=== PATIENT | male | born 1940 | race Hispanic/Latino ===

== ENCOUNTER 2018-08-17 07:13 | Emergency (ER) | payer MEDICARE, OTHER ==
[~2018-08-17 07:13] MED LIST: AMLO10TA7 PO; ASPI-1197 PO; HYDR25TA PO; LEVO50TA11 PO; LISI40TA4 PO; METF-444 PO; METO-391 PO; SIMV40TA59 PO; VALS160T29 PO
[2018-08-17] MEDS ORDERED: MECLIZINE HCL 25 MG TABLET ONE (07:28)
[2018-08-17] MEDS ORDERED: ONDANSETRON HCL 4 MG/2 ML VIAL ONE (07:29)
[2018-08-17 07:42] LABS: BASOPHILS % (AUTO) 0.8 % (0.0-5.0); EOSINOPHILS % (AUTO) 1.5 % (0.0-8.0); HEMATOCRIT 40.6 % (42-54); LYMPHOCYTES % (AUTO) 20.1 % (21.0-51.0); MEAN CORPUSCULAR HEMOGLOBIN 31.1 pg (27.0-33.0); MEAN CORPUSCULAR HGB CONC 33.6 g/dL (32.0-36.0); MEAN CORPUSCULAR VOLUME 92.5 fL (79-99); MONOCYTES % (AUTO) 4.8 % (3.0-13.0); NEUTROPHILS % (AUTO) 72.8 % (40.0-77.0); NUCLEATED RED BLOOD CELLS 0.1 % (0.0-0.19); PLATELET COUNT (AUTO) 211 K/uL (130-400); RED BLOOD CELL COUNT(AUTO) 4.39 MIL/uL (4.50-6.20); RED CELL DISTRIBUTION WIDTH 14.1 % (11.0-15.5); WHITE BLOOD COUNT (AUTO) 11.7 K/uL (4.8-10.8)
[2018-08-17 07:52] LABS: CREATININE 1.2 mg/dL (0.5-1.5); POTASSIUM 4.3 mmol/L (3.5-5.1)
[2018-08-17 07:54] LABS: INR 0.95 (0.85-1.15); PARTIAL THROMBOPLASTIN TIME 25.8 SEC (26.3-35.5)
[2018-08-17 08:07] LABS: ALBUMIN 3.5 g/dL (3.5-5.0); BILIRUBIN,TOTAL 0.4 mg/dL (0.2-1.0)
[2018-08-17] MEDS ORDERED: SODIUM CHLORIDE 0.9% 1000ML 1,000 ML IV ONE (08:30)
[2018-08-17 08:57] LABS: APPEARANCE,URINE Clear (CLEAR); BILIRUBIN,URINE Negative (NEGATIVE); COLOR,URINE Yellow (YELLOW); GLUCOSE, URINE (UA) Negative (NEGATIVE); KETONES,URINE Negative (NEGATIVE); LEUKOCYTE ESTERASE ,URINE Negative (NEGATIVE); NITRATE,URINE Negative (NEGATIVE); OCCULT BLOOD,URINE Trace (NEGATIVE); PH,URINE 6.5 (5.0-8.0); PROTEIN,URINE 300 mg/dL (NEGATIVE); UROBILINOGEN,URINE 0.2 mg/dL (0.2-1.0)
[2018-08-17 09:05] LABS: BACTERIA,URINE Rare /HPF (None Seen); RBC,URINE 0-1 /HPF (0-1); SQUAMOUS EPITHELIAL CELL,UR Rare /HPF (0-2); WBC,URINE 0-1 /HPF (0-1)
== END 2018-08-17 09:55 | disposition home or self-care (01) ==
LOC: EDH 07:13
DX: H81.399 Other peripheral vertigo, unspecified ear (principal); E11.9 Type 2 diabetes mellitus without complications; I10 Essential (primary) hypertension; R11.2 Nausea with vomiting, unspecified; Z95.1 Presence of aortocoronary bypass graft
CPT/HCPCS: 36415; 70450; 80053; 81001; 82150; 82550; 83690; 84484; 85025; 85610; 85730; 93005; 96361; 96374; 99285; J2405; J7030

== ENCOUNTER 2021-10-12 14:46 | Inpatient (IN) | payer OTHER ==
[~2021-10-12] VITALS: Ht 165.1 cm; Wt 75.9 kg
[~2021-10-12 14:46] MED LIST changes: +AMLO-258 PO; -AMLO10TA7 PO; -LISI40TA4 PO; +LISI40TA9 PO
[2021-10-12 15:22] LABS: APPEARANCE,URINE CLEAR (CLEAR); BILIRUBIN,URINE NEGATIVE (NEGATIVE); COLOR,URINE YELLOW (YELLOW); GLUCOSE, URINE (UA) NEGATIVE (NEGATIVE); KETONES,URINE NEGATIVE (NEGATIVE); LEUKOCYTE ESTERASE ,URINE NEGATIVE (NEGATIVE); NITRATE,URINE NEGATIVE (NEGATIVE); OCCULT BLOOD,URINE NEGATIVE (NEGATIVE); PROTEIN,URINE 100 mg/dL (NEGATIVE); UROBILINOGEN,URINE 0.2 mg/dL (0.2-1.0)
[2021-10-12 15:29] LABS: BACTERIA,URINE Few /HPF (None Seen); MUCUS,URINE Moderate LPF (None Seen); SQUAMOUS EPITHELIAL CELL,UR Few /HPF (0-2); WBC,URINE 0-1 /HPF (0-1)
[2021-10-12 15:51] LABS: BASOPHILS % (AUTO) 0.6 % (0.0-5.0); EOSINOPHILS % (AUTO) 1.8 % (0.0-8.0); HEMATOCRIT 32.7 % (42-54); LYMPHOCYTES % (AUTO) 16.5 % (21.0-51.0); MEAN CORPUSCULAR HEMOGLOBIN 30.9 pg (27.0-33.0); MEAN CORPUSCULAR HGB CONC 33.3 g/dL (32.0-36.0); MEAN CORPUSCULAR VOLUME 92.6 fL (79-99); MONOCYTES % (AUTO) 4.7 % (3.0-13.0); NEUTROPHILS % (AUTO) 76.1 % (40.0-77.0); PLATELET COUNT (AUTO) 170 K/uL (130-400); RED BLOOD CELL COUNT(AUTO) 3.53 MIL/uL (4.50-6.20); RED CELL DISTRIBUTION WIDTH 14.2 % (11.0-15.5); WHITE BLOOD COUNT (AUTO) 9.5 K/uL (4.8-10.8)
[2021-10-12 16:01] LABS: CREATININE 1.7 mg/dL (0.5-1.5); POTASSIUM 4.4 mmol/L (3.5-5.1)
[2021-10-12 16:10] LABS: ALBUMIN 3.2 g/dL (3.5-5.0)
[2021-10-12] MEDS ORDERED: ATOR40TA69 PO (21:37)
[2021-10-12] MEDS ORDERED: ISOS60TA77 PO (21:37)
[2021-10-12] MEDS ORDERED: OMEP40CA21 PO (21:37)
[2021-10-12] MEDS ORDERED: LEVO25CA4 PO (21:37)
[2021-10-12] MEDS ORDERED: METO-408 PO (21:37)
[2021-10-13 04:10] VITALS: BP 148/72
[2021-10-13 05:24] LABS: HEMATOCRIT 33.4 % (42-54); MEAN CORPUSCULAR HEMOGLOBIN 30.8 pg (27.0-33.0); MEAN CORPUSCULAR HGB CONC 33.5 g/dL (32.0-36.0); MEAN CORPUSCULAR VOLUME 91.8 fL (79-99); RED BLOOD CELL COUNT(AUTO) 3.64 MIL/uL (4.50-6.20); RED CELL DISTRIBUTION WIDTH 14.2 % (11.0-15.5); WHITE BLOOD COUNT (AUTO) 11.3 K/uL (4.8-10.8)
[2021-10-13 05:40] LABS: CREATININE 1.5 mg/dL (0.5-1.5); MAGNESIUM 1.4 mg/dL (1.80-2.40)
[2021-10-13] MEDS: LEVOTHYROXINE 25 MCG TABLET PO SCH (07:11)
[2021-10-13 08:51] VITALS: BP 155/71
[2021-10-13] MEDS: ISOSORBIDE MONO 60MG SR TAB PO SCH ×2 (10:00→21:18)
[2021-10-13] MEDS: AMLODIPINE 5 MG TAB PO SCH (10:01)
[2021-10-13] MEDS: METOPROLOL SUCCINATE 25 MG TAB.SR.24H PO SCH (10:01)
[2021-10-13] MEDS: PANTOPRAZOLE 40 MG TAB DR PO SCH (10:01)
[2021-10-13] MEDS: LISINOPRIL 40 MG TABLET PO SCH ×2 (10:01→21:18)
[2021-10-13] MEDS: ATORVASTATIN 40 MG TABLET PO SCH (10:01)
[2021-10-13] MEDS: ASPIRIN 81MG CHEW TAB PO SCH (10:02)
[2021-10-13 12:20] VITALS: BP 152/75
[2021-10-13 16:55] VITALS: BP 137/75
[2021-10-13 20:00] VITALS: BP 146/65
[2021-10-14] VITALS: BP 155/57
[2021-10-14 04:00] VITALS: BP 158/70
[2021-10-14] MEDS: LEVOTHYROXINE 25 MCG TABLET PO SCH (06:18)
[2021-10-14 08:00] VITALS: BP 160/81
[2021-10-14] MEDS ORDERED: MAGNESIUM 4GM PREMIX 100ML 100 ML IV PRN (08:00)
[2021-10-14] MEDS: ASPIRIN 81MG CHEW TAB PO SCH (08:15)
[2021-10-14] MEDS: AMLODIPINE 5 MG TAB PO SCH (08:16)
[2021-10-14] MEDS: METOPROLOL SUCCINATE 25 MG TAB.SR.24H PO SCH (08:16)
[2021-10-14] MEDS: ISOSORBIDE MONO 60MG SR TAB PO SCH (08:16)
[2021-10-14] MEDS: LISINOPRIL 40 MG TABLET PO SCH (08:16)
[2021-10-14] MEDS: PANTOPRAZOLE 40 MG TAB DR PO SCH (08:16)
[2021-10-14] MEDS: ATORVASTATIN 40 MG TABLET PO SCH (08:21)
[2021-10-14] MEDS ORDERED: MAGNESIUM 2GM PREMIX 50ML 100 ML IV ONE (09:52)
[2021-10-14 12:00] VITALS: BP 145/68
== END 2021-10-14 12:20 | disposition home or self-care (01) | DRG 149 ==
LOC: EDH 14:46 → EDHIP 18:10 → 3AH 10-13 01:50
PROVIDERS: ADMIT Family Medicine; ATTEND Family Medicine
DX: H81.399 Other peripheral vertigo, unspecified ear (principal); N17.9 Acute kidney failure, unspecified; E78.00 Pure hypercholesterolemia, unspecified; I12.9 Hypertensive chronic kidney disease with stage 1 through stage 4 chronic kidney disease, or unspecified chronic kidney disease; N18.9 Chronic kidney disease, unspecified; Z95.2 Presence of prosthetic heart valve; E87.6 Hypokalemia; E83.42 Hypomagnesemia; E11.22 Type 2 diabetes mellitus with diabetic chronic kidney disease
CPT/HCPCS: 36415; 70450; 70544; 70547; 70551; 80048; 80053; 81001; 83735; 84484; 85025; 85027; 93005; 93880; G0378; J3475

== ENCOUNTER → 2023-03-18 | Outpatient (CLI) | payer OTHER ==
[~2023-03-18] MED LIST changes: +ATOR40TA69 PO; +ISOS60TA77 PO; +LEVO25CA4 PO; +METO-408 PO; +OMEP40CA21 PO
[2023-03-18 13:05] LABS: EOSINOPHILS # (AUTO) 0.25 K/uL (0.00-0.70); EOSINOPHILS % (AUTO) 2.5 % (0.0-8.0); IMMATURE GRANULOCYTE ABSOLUTE 0.03 K/uL (0-1); LYMPHOCYTES # (AUTO) 2.3 K/uL (1.0-4.8); LYMPHOCYTES % (AUTO) 22.6 % (21.0-51.0); MEAN CORPUSCULAR HEMOGLOBIN 31.2 pg (27.0-33.0); MEAN CORPUSCULAR HGB CONC 32.8 g/dL (32.0-36.0); MEAN CORPUSCULAR VOLUME 95.1 fL (79-99); MONOCYTES # (AUTO) 0.5 K/uL (0.1-1.0); NEUTROPHILS # (AUTO) 6.9 K/uL (1.8-7.7); NEUTROPHILS % (AUTO) 68.6 % (40.0-77.0); PLATELET COUNT (AUTO) 221 K/uL (130-400); WHITE BLOOD COUNT (AUTO) 10.1 K/uL (4.8-10.8)
[2023-03-18 13:07] LABS: APPEARANCE,URINE CLEAR (CLEAR); BILIRUBIN,URINE NEGATIVE (NEGATIVE); COLOR,URINE LIGHT-YELLOW (YELLOW); GLUCOSE, URINE (UA) 30 mg/dL (NEGATIVE); KETONES,URINE NEGATIVE (NEGATIVE); LEUKOCYTE ESTERASE ,URINE NEGATIVE Leu/uL (NEGATIVE); NITRATE,URINE NEGATIVE (NEGATIVE); OCCULT BLOOD,URINE SMALL (NEGATIVE); PROTEIN,URINE 300 mg/dL (NEGATIVE); UROBILINOGEN,URINE 0.2 mg/dL (0.2-1.0)
[2023-03-18 13:08] LABS: ADD UA MICROSCOPIC YES
[2023-03-18 13:18] LABS: MUCUS,URINE RARE LPF (None Seen); RBC,URINE 0-1 /HPF (0-1); SQUAMOUS EPITHELIAL CELL,UR RARE /HPF (0-2); WBC,URINE 0-1 /HPF (0-1)
[2023-03-18 13:39] LABS: ALBUMIN 3.6 g/dL (3.5-5.0); BILIRUBIN,TOTAL 0.5 mg/dL (0.2-1.0); CREATININE 1.7 mg/dL (0.5-1.5); PHOSPHORUS 3.5 mg/dL (2.5-4.9); POTASSIUM 4.6 mmol/L (3.5-5.1); TOTAL PROTEIN, SERUM 8.2 g/dL (6.0-8.3)
[2023-03-19 01:16] LABS: HEPATITIS B SURFACE ANTIGEN Non-Reactive (Nonreactive)
[2023-03-23 16:10] LABS: ALBUMIN (IFE & ELECTROPHOR) 3.5 g/dL (2.9-4.4); ALBUMIN/GLOBULIN RATIO (IFE) 0.9 (0.7-1.7); ALPHA-1 (IFE & PEP) 0.3 g/dL (0.0-0.4); ALPHA-2 (IFE & PEP) 0.9 g/dL (0.4-1.0); BETA (IFE & ELP) 1.3 g/dL (0.7-1.3); GAMMA GLOBULINS (IFE & ELP) 1.4 g/dL (0.4-1.8); IGA (IFE) 425 mg/dL (61-437); IGG (IMMUNOFIXATION) 1259 mg/dL (603-1613); IGM (IMMUNOFIXATION) 203 mg/dL (15-143); M-SPIKE (IEP) Not Observed g/dL (Not Observed); TOTAL PROTEIN 7.5 g/dL (6.0-8.5)
[2023-03-24 15:13] LABS: ATYPICAL P-ANCA AB <1:20 titer (Neg:<1:20); CYTOPLASMIC (C-ANCA) AB, IGG <1:20 titer (Neg:<1:20)
== END | disposition home or self-care (01) ==
LOC: LAB 11:53
PROVIDERS: ATTEND Internal Medicine Nephrology
DX: N18.9 Chronic kidney disease, unspecified (principal); D63.1 Anemia in chronic kidney disease
CPT/HCPCS: 36415; 80053; 81001; 82728; 83540; 83550; 83970; 84100; 85025; 86038; 86160; 86215; 86235; 86255; 86334; 87340

== ENCOUNTER → 2023-05-18 | Outpatient (CLI) | payer OTHER | END | disposition home or self-care (01) | LOC: RAH 12:36 | PROVIDERS: ATTEND Internal Medicine | DX: I08.2 Rheumatic disorders of both aortic and tricuspid valves (principal) | CPT/HCPCS: 93306 ==

== ENCOUNTER 2023-06-24 11:06 | Emergency (ER) | payer OTHER ==
[~2023-06-24] VITALS: Ht 162.6 cm; Wt 75.7 kg
[2023-06-24] MEDS: AMLODIPINE 5 MG TAB PO ONE (11:52)
[2023-06-24 11:56] LABS: BASOPHILS # (AUTO) 0.05 K/uL (0.00-0.20); BASOPHILS % (AUTO) 0.4 % (0.0-5.0); EOSINOPHILS # (AUTO) 0.23 K/uL (0.00-0.70); HEMATOCRIT 37.5 % (42-54); IMMATURE GRANULOCYTE ABSOLUTE 0.07 K/uL (0-1); LYMPHOCYTES # (AUTO) 2.4 K/uL (1.0-4.8); LYMPHOCYTES % (AUTO) 20.1 % (21.0-51.0); MEAN CORPUSCULAR HEMOGLOBIN 31.2 pg (27.0-33.0); MEAN CORPUSCULAR HGB CONC 33.1 g/dL (32.0-36.0); MEAN CORPUSCULAR VOLUME 94.2 fL (79-99); MONOCYTES # (AUTO) 0.5 K/uL (0.1-1.0); MONOCYTES % (AUTO) 4.5 % (3.0-13.0); NEUTROPHILS # (AUTO) 8.5 K/uL (1.8-7.7); NEUTROPHILS % (AUTO) 72.4 % (40.0-77.0); PLATELET COUNT (AUTO) 247 K/uL (130-400); RED BLOOD CELL COUNT(AUTO) 3.98 MIL/uL (4.50-6.20); RED CELL DISTRIBUTION WIDTH 13.4 % (11.0-15.5); WHITE BLOOD COUNT (AUTO) 11.8 K/uL (4.8-10.8)
[2023-06-24 12:06] LABS: CREATININE 1.9 mg/dL (0.5-1.3); POTASSIUM 4.6 mmol/L (3.5-5.1)
[2023-06-24 12:10] LABS: ALBUMIN 3.2 g/dL (3.5-5.0); BILIRUBIN,TOTAL 0.3 mg/dL (0.2-1.0); TOTAL PROTEIN, SERUM 7.8 g/dL (6.0-8.3)
[2023-06-24] MEDS: HYDRALAZINE HCL 10 MG TABLET PO SCH (13:42)
[2023-06-24] MEDS: IBUPROFEN 600 MG TABLET PO ONE (14:40)
[2023-06-24 14:41] VITALS: BP 157/64; PULSE 60; RESP 16; O2SAT 99
[2023-06-24] MEDS ORDERED: D-ME118S47 PO (14:51)
[2023-06-24] MEDS ORDERED: AMOX1TAB16 PO (14:51)
[2023-06-24] MEDS ORDERED: PRED20TA3 PO (14:51)
[2023-06-26] MEDS ORDERED: CEFU500T67 PO (07:17)
== END 2023-06-24 14:42 | disposition home or self-care (01) ==
LOC: EDH 11:06
DX: I16.0 Hypertensive urgency (principal); I12.9 Hypertensive chronic kidney disease with stage 1 through stage 4 chronic kidney disease, or unspecified chronic kidney disease; N18.32 Chronic kidney disease, stage 3b; E78.00 Pure hypercholesterolemia, unspecified; Z79.82 Long term (current) use of aspirin; Z79.84 Long term (current) use of oral hypoglycemic drugs; Z79.890 Hormone replacement therapy; Z79.899 Other long term (current) drug therapy; Z90.49 Acquired absence of other specified parts of digestive tract
CPT/HCPCS: 36415; 70450; 71045; 80053; 84484; 85025; 93005

== ENCOUNTER 2023-08-07 06:24 | Emergency (ER) | payer OTHER ==
[~2023-08-07] VITALS: Ht 162.6 cm; Wt 74.4 kg
[~2023-08-07 06:24] MED LIST changes: +AMOX1TAB16 PO; +BROM118S48 PO; +CEFU500T67 PO; +PRED20TA3 PO
[2023-08-07 06:46] LABS: BASOPHILS # (AUTO) 0.06 K/uL (0.00-0.20); BASOPHILS % (AUTO) 0.4 % (0.0-5.0); EOSINOPHILS # (AUTO) 0.11 K/uL (0.00-0.70); EOSINOPHILS % (AUTO) 0.8 % (0.0-8.0); HEMATOCRIT 38.2 % (42-54); IMMATURE GRANULOCYTE ABSOLUTE 0.09 K/uL (0-1); LYMPHOCYTES # (AUTO) 3.1 K/uL (1.0-4.8); LYMPHOCYTES % (AUTO) 21.2 % (21.0-51.0); MEAN CORPUSCULAR HEMOGLOBIN 32.1 pg (27.0-33.0); MEAN CORPUSCULAR HGB CONC 33.5 g/dL (32.0-36.0); MEAN CORPUSCULAR VOLUME 95.7 fL (79-99); MONOCYTES # (AUTO) 0.7 K/uL (0.1-1.0); MONOCYTES % (AUTO) 4.7 % (3.0-13.0); NEUTROPHILS # (AUTO) 10.4 K/uL (1.8-7.7); NEUTROPHILS % (AUTO) 72.3 % (40.0-77.0); PLATELET COUNT (AUTO) 237 K/uL (130-400); RED BLOOD CELL COUNT(AUTO) 3.99 MIL/uL (4.50-6.20); WHITE BLOOD COUNT (AUTO) 14.4 K/uL (4.8-10.8)
[2023-08-07 08:15] LABS: ALBUMIN 3.4 g/dL (3.5-5.0); BILIRUBIN,TOTAL 0.3 mg/dL (0.2-1.0); CREATININE 1.9 mg/dL (0.5-1.3); MAGNESIUM 1.5 mg/dL (1.80-2.40); POTASSIUM 4.5 mmol/L (3.5-5.1); TOTAL PROTEIN, SERUM 7.9 g/dL (6.0-8.3)
[2023-08-07] MEDS: MAGNESIUM 2GM PREMIX 50ML 50 ML IV ONE (09:04)
[2023-08-07] MEDS: 0.9% NACL 500ML IV.SOLN 500 ML IV ONE (09:05)
[2023-08-07 10:08] VITALS: BP 157/84; PULSE 67; RESP 16; O2SAT 97
== END 2023-08-07 11:12 | disposition home or self-care (01) ==
LOC: EDH 06:24
DX: R00.2 Palpitations (principal); I12.9 Hypertensive chronic kidney disease with stage 1 through stage 4 chronic kidney disease, or unspecified chronic kidney disease; N18.9 Chronic kidney disease, unspecified; E83.42 Hypomagnesemia; E78.00 Pure hypercholesterolemia, unspecified; Z79.82 Long term (current) use of aspirin; Z79.84 Long term (current) use of oral hypoglycemic drugs; Z79.899 Other long term (current) drug therapy; Z98.890 Other specified postprocedural states
CPT/HCPCS: 99285; 96374; 71045; 83735; 84484; 80053; 85025; 36415; 93005; J3475

== ENCOUNTER → 2023-08-09 | Outpatient (CLI) | payer OTHER ==
[2023-08-09] MEDS: REGADENOSON 0.4 MG/5 ML PF SYG IVP ONE (14:42)
== END | disposition home or self-care (01) ==
LOC: SHCH 08:10
PROVIDERS: ATTEND Internal Medicine Cardiovascular Disease
DX: E78.5 Hyperlipidemia, unspecified (principal); R06.09 Other forms of dyspnea; Z95.2 Presence of prosthetic heart valve
CPT/HCPCS: 78452; 93017; J2785; A9500 ×2; 96374

== ENCOUNTER → 2023-08-20 | Outpatient (CLI) | payer OTHER | END | disposition home or self-care (01) | LOC: SHCH 07:30 | PROVIDERS: ATTEND Internal Medicine Cardiovascular Disease | DX: I65.22 Occlusion and stenosis of left carotid artery (principal); R09.89 Other specified symptoms and signs involving the circulatory and respiratory systems; I10 Essential (primary) hypertension | CPT/HCPCS: 93880; 93975 ==

== ENCOUNTER 2023-09-27 05:43 | Day surgery (SDC) | payer OTHER ==
[2023-09-24 12:10] VITALS: BP_SYST 180; BP_SYST 194; BP_DIAS 75; BP_DIAS 86; PULSE 64; RESP 18
[2023-09-24 12:17] LABS: BASOPHILS # (AUTO) 0.09 K/uL (0.00-0.20); BASOPHILS % (AUTO) 0.7 % (0.0-5.0); EOSINOPHILS # (AUTO) 0.31 K/uL (0.00-0.70); EOSINOPHILS % (AUTO) 2.3 % (0.0-8.0); HEMATOCRIT 33.9 % (42-54); LYMPHOCYTES # (AUTO) 2.3 K/uL (1.0-4.8); LYMPHOCYTES % (AUTO) 16.6 % (21.0-51.0); MEAN CORPUSCULAR HEMOGLOBIN 31.8 pg (27.0-33.0); MEAN CORPUSCULAR HGB CONC 33.3 g/dL (32.0-36.0); MEAN CORPUSCULAR VOLUME 95.5 fL (79-99); MONOCYTES # (AUTO) 0.8 K/uL (0.1-1.0); MONOCYTES % (AUTO) 5.5 % (3.0-13.0); NEUTROPHILS # (AUTO) 10.1 K/uL (1.8-7.7); NEUTROPHILS % (AUTO) 74.2 % (40.0-77.0); PLATELET COUNT (AUTO) 209 K/uL (130-400); RED BLOOD CELL COUNT(AUTO) 3.55 MIL/uL (4.50-6.20); RED CELL DISTRIBUTION WIDTH 14.4 % (11.0-15.5); WHITE BLOOD COUNT (AUTO) 13.6 K/uL (4.8-10.8)
[2023-09-24 12:23] LABS: APPEARANCE,URINE CLEAR (CLEAR); BILIRUBIN,URINE NEGATIVE (NEGATIVE); COLOR,URINE LIGHT-YELLOW (YELLOW); GLUCOSE, URINE (UA) 70 mg/dL (NEGATIVE); KETONES,URINE NEGATIVE (NEGATIVE); LEUKOCYTE ESTERASE ,URINE NEGATIVE Leu/uL (NEGATIVE); NITRATE,URINE NEGATIVE (NEGATIVE); PROTEIN,URINE 600 mg/dL (NEGATIVE); UROBILINOGEN,URINE 0.2 mg/dL (0.2-1.0)
[2023-09-24 12:26] LABS: ADD UA MICROSCOPIC YES
[2023-09-24 12:42] LABS: B-TYPE NATRIURETIC PEPTIDE 84 pg/mL (0-100)
[2023-09-24 12:43] LABS: MUCUS,URINE RARE LPF (None Seen); RBC,URINE 0-1 /HPF (0-1)
[2023-09-24 12:56] LABS: INR 0.97 (0.85-1.15); PROTHROMBIN TIME 10.5 SEC (9.6-11.6)
[2023-09-24 12:57] LABS: PARTIAL THROMBOPLASTIN TIME 26.3 SEC (26.3-35.5)
[~2023-09-27] VITALS: Ht 162.6 cm; Wt 72.9 kg
[2023-09-27] VITALS (13 sets, daily range): BP systolic 94–197; BP diastolic 39–92; PULSE 52–68; RESP 12–22
[~2023-09-27 05:43] MED LIST changes: -AMOX1TAB16 PO; -BROM118S48 PO; -CEFU500T67 PO; -HYDR25TA PO; +HYDR25TA67 PO; -LEVO50TA11 PO; -LISI40TA9 PO; +MEMA10TA21 PO; -METF-444 PO; -METO-391 PO; -OMEP40CA21 PO; -PRED20TA3 PO; -SIMV40TA59 PO; -VALS160T29 PO
[2023-09-27] MEDS: 0.9%NACL 1000ML 1,000 ML IV ONE ×2 (06:38→13:19)
[2023-09-27 08:23] LABS: CREATININE 1.6 mg/dL (0.5-1.3); POTASSIUM 4.1 mmol/L (3.5-5.1)
[2023-09-27] MEDS ORDERED: LIDOCAINE HCL 400MG/20ML VIAL ONE (14:49)
[2023-09-27] MEDS ORDERED: HEPARIN 10,000 UNIT/10ML (1,000 UNIT/ML) VIAL ONE (14:50)
[2023-09-27] MEDS ORDERED: MEPERIDINE-PF 25 MG/ML SYG ONE ×2 (14:50→15:11)
[2023-09-27] MEDS ORDERED: IOHEXOL 350 MG/ML 100ML INFUS..BTL IV ONE (14:50)
[2023-09-27] MEDS ORDERED: MIDAZOLAM HCL 1 MG/ML 2ML VIAL ONE ×2 (14:50→15:12)
[2023-09-27] MEDS ORDERED: NITROGLYCERIN 50MG VIAL ONE (14:51)
[2023-09-27] MEDS ORDERED: SODIUM BICARB 50MEQ 50ML VIAL 50 ML ONE (15:02)
[2023-09-27] MEDS ORDERED: HYDRALAZINE 20MG/ML VIAL ONE (15:16)
[2023-09-27] MEDS: 0.9%NACL 1000ML 1,000 ML IV SCH (17:13)
== END 2023-09-27 20:39 | disposition home or self-care (01) ==
LOC: DAH 05:43
PROVIDERS: ATTEND Internal Medicine Cardiovascular Disease
DX: I25.118 Atherosclerotic heart disease of native coronary artery with other forms of angina pectoris (principal); I12.9 Hypertensive chronic kidney disease with stage 1 through stage 4 chronic kidney disease, or unspecified chronic kidney disease; N18.9 Chronic kidney disease, unspecified; Z95.1 Presence of aortocoronary bypass graft; Z79.84 Long term (current) use of oral hypoglycemic drugs; Z79.899 Other long term (current) drug therapy
CPT/HCPCS: 80048 ×2; 83880; 85025; 85610; 85730; 81001; 36415 ×2; 71045; 93005; 93459; Q9965; C1769; C1894; C1760; J3490 ×3; J7030 ×3; J0360; J2250; J2175; J1644; Q9967; A4215; A4222; A4221; A4663; A4216; A4606; A4223 ×3; 96360; 96361; 99156; 99157

== ENCOUNTER 2024-08-21 00:24 | Inpatient (IN) | payer OTHER ==
[~2024-08-21] VITALS: Ht 162.6 cm; Wt 61.7 kg
[~2024-08-21 00:24] MED LIST changes: +AMOX1TAB16 PO; -ATOR40TA69 PO; +ATOR40TA71 PO; +CHOL100046 PO; +FURO40TA5 PO; +HYDR100T15 PO; -HYDR25TA67 PO; +IRON-15 PO; -LEVO25CA4 PO; +LEVO25CA5 PO
--- NOTE | 2024-08-21 00:52 | EKG ---
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
[2024-08-21 01:05] LABS: BASOPHILS # (AUTO) 0.06 K/uL (0.00-0.20); BASOPHILS % (AUTO) 0.6 % (0.0-5.0); EOSINOPHILS # (AUTO) 0.48 K/uL (0.00-0.70); EOSINOPHILS % (AUTO) 4.9 % (0.0-8.0); HEMATOCRIT 25.9 % (42-54); IMMATURE GRANULOCYTE ABSOLUTE 0.04 K/uL (0-1); LYMPHOCYTES # (AUTO) 1.2 K/uL (1.0-4.8); LYMPHOCYTES % (AUTO) 11.7 % (21.0-51.0); MEAN CORPUSCULAR HEMOGLOBIN 31.8 pg (27.0-33.0); MEAN CORPUSCULAR VOLUME 99.2 fL (79-99); MONOCYTES # (AUTO) 0.7 K/uL (0.1-1.0); MONOCYTES % (AUTO) 7.2 % (3.0-13.0); NEUTROPHILS # (AUTO) 7.4 K/uL (1.8-7.7); NEUTROPHILS % (AUTO) 75.2 % (40.0-77.0); PLATELET COUNT (AUTO) 266 K/uL (130-400); RED BLOOD CELL COUNT(AUTO) 2.61 MIL/uL (4.50-6.20); RED CELL DISTRIBUTION WIDTH 15.5 % (11.0-15.5); WHITE BLOOD COUNT (AUTO) 9.9 K/uL (4.8-10.8)
[2024-08-21 01:12] LABS: CREATININE 3.7 mg/dL (0.5-1.3); POTASSIUM 4.2 mmol/L (3.5-5.1)
[2024-08-21] MEDS: furoSEMIDE 40MG VIAL IV ONE (01:16)
[2024-08-21 01:28] LABS: B-TYPE NATRIURETIC PEPTIDE 1950 pg/mL (0-100)
[2024-08-21 01:45] LABS: COVID19 (SARS ANTIGEN RAPID) PRESUMPTIVE NEGATIVE (NEGATIVE)
[2024-08-21 01:46] LABS: INFLUENZA TYPE A Negative For Type A (NEGATIVE); INFLUENZA TYPE B Negative For Type B (NEGATIVE)
--- NOTE | 2024-08-21 01:54 | ERN ---
ED Note History of Present Illness Stated Complaint: SOB Chief Complaint: Shortness of Breath Time Seen by MD: 00:57 Time Seen by Midlevel: 00:57 Dictation: The patient is an 84-year-old male with a history of kidney disease, CAD, hypertension, CABG who presents to the emergency department with complaints of shortness of breath. Patient also reports a nonproductive cough and lower extremity swelling. Reports he was admitted to the hospital for kidney failure a month ago. Patient reports no history of dialysis. Patient reports he has been dealing with the shortness of breath for about a month but it has progressively gotten worse. Patient denies any fevers, sore throat, ear pain or any other symptoms. Denies any chest pain Allergies: Coded Allergies: No Known Drug Allergies (Verified Allergy, Unknown, 07/23/15) Home Meds Reported Medications Amoxicillin/Potassium Clav (Amox Tr-K Clv 875-125 mg Tab) 875 Mg-125 Mg Tablet, 1 TAB PO BID for 10 Days, #20 TAB 0 Refills 07/21/24 Metoprolol Succinate (Metoprolol Succinate) 25 Mg Tab.er.24h, 2 TAB PO DAILY for 30 Days, #30 TAB 0 Refills 25 Hydralazine HCl (Hydralazine HCl) 100 Mg Tablet, 1 TAB PO TID for 30 Days, #90 TAB 0 Refills 25 Iron,Carbonyl/Ascorbic Acid (Iron 100-Vitamin C Tablet) 100 Mg-250 Mg Tablet, 1 EACH PO DAILY, TAB 07/01/24 Levothyroxine Sodium (Levothyroxine) 25 Mcg Capsule, 1 CAP PO DAILY for 30 Days, #30 CAP 0 Refills 07/01/24 Atorvastatin Calcium (Atorvastatin Calcium) 40 Mg Tablet, 1 TAB PO DAILY for 30 Days, #30 TAB 0 Refills 07/01/24 Cholecalciferol (Vitamin D3) (Vitamin D3) 25 Mcg (1000 Unit) Capsule, 1 CAP PO DAILY for 30 Days, #30 CAP 0 Refills 07/01/24 Isosorbide Mononitrate (Isosorbide Mononitrate ER) 60 Mg Tab.er.24h, 1 TAB PO BID for 30 Days, #30 TAB 0 Refills 07/01/24 Amlodipine Besylate (Amlodipine Besylate) 10 Mg Tablet, 0.5 TAB PO DAILY for 30 Days, #30 TAB 0 Refills 07/01/24 Furosemide (Furosemide) 40 Mg Tablet, 1 TAB PO DAILY for 30 Days, #30 TAB 0 Refills 07/01/24 Aspirin (Aspirin) 81 Mg Tab.chew, 81 MG PO DAILY, TAB.CHEW 04/04/24 Memantine HCl (Memantine HCl) 10 Mg Tablet, 10 MG PO DAILY, TAB 09/24/23 Past Medical History Past Medical History: Diabetes-Type II, High Cholesterol, Hypertension Surgical History: Cholecystectomy, Other Surgical History Other: AORTIC VALVE SX, CABG Family History: Negative Social History: Negative, Lives with family RN Note Reviewed/Agreed w/PFSH: Yes Review of System Dictation Constitutional: Negative for fever,chills, and weight loss Eyes: Negative for injury, pain,redness, and discharge ENT: Negative for injury,pain or swelling Cardiovascular: Negative for chest pain, palpitations, and edema Respiratory: Negative for wheezing, positive for shortness of breath, cough Abdomen/GI: Negative for abdominal pain, nausea, vomiting, diarrhea, and constipation Back: Negative for injury and pain : Negative for injury, bleeding and discharge MS/Extremity: Negative for injury and deformity Skin: Negative for rash, and discoloration Neuro: Negative for headache, weakness, numbness, tingling, and seizure Psych: Negative for suicide ideation, homicidal ideation, and hallucinations Initial Vital Sign VS Vital Signs Date Time Temp Pulse Resp B/P (MAP) Pulse Ox O2 Delivery O2 Flow Rate FiO2 08/21/24 00:25 98.4 77 18 130/81 96 Room Air 08/21/24 02:40 2 28 Physical Exam Dictation Vital Signs reviewed General Appearance: Alert, oriented x 3, mildly distress, well developed, nourished. Head and Face: non-traumatic. Eyes: PERRL, pink conjunctivas, eyelid no trauma, anterior chamber with arcus senilis. Ears: Pinnas intact and no signs of trauma or erythema ear canals clear and no discharge TM no erythema Nose: No discharge, no bleeding. Oropharynx: Mouth normal, tongue pink. pharynx clear,no erythema, tonsils no exudates, no abscesses noted, mucous membrane moist Neck: Supple, non-tender, no thyromegaly, no masses, no JVD, no bruits Breast:Deferred Chest:No tenderness, no crepitus, no paradoxical movement, no retractions Lungs:Clear, well-ventilated, symmetric, no rales, no wheezing, no rhonchi, no stridor, good breath sounds bilaterally Heart: Regular rate, regular rhythm, no murmur, no gallops Vascular: 3+ bilateral pitting edema Abdomen: Soft, positive bowel sounds, nondistended, no guarding, nontender, no rebound, no masses no hepatomegaly, no splenomegaly, no Fenton's sign, no hernias. Rectal: Deferred Genital: Deferred Neurological: Normal speech, motor function intact, sensory function intact Musculoskeletal: Neck nontender, full range of motion, back nontender, full range of motion, Extremities: nontender, full range of motion Skin: Color pink, dry, no turgor, no rash, no lacerations, no abrasions, no contusions. Lymphatic: Deferred Results (Laboratory/Radiology) Laboratory/Radiology Laboratory Tests Test 08/21/24 00:55 08/21/24 01:22 White Blood Count 9.9 K/uL (4.8-10.8) Red Blood Count 2.61 MIL/uL (4.50-6.20) L Hemoglobin 8.3 g/dL (14.0-18.0) L Hematocrit 25.9 % (42-54) L Mean Corpuscular Volume 99.2 fL (79-99) H Mean Corpuscular Hemoglobin 31.8 pg (27.0-33.0) Mean Corpuscular Hemoglobin Concent 32.0 g/dL (32.0-36.0) Red Cell Distribution Width 15.5 % (11.0-15.5) Platelet Count 266 K/uL (130-400) Mean Platelet Volume 11.5 fL (7.5-10.5) H Immature Granulocyte % (Auto) 0.4 % (0-1) Neutrophils (%) (Auto) 75.2 % (40.0-77.0) Lymphocytes (%) (Auto) 11.7 % (21.0-51.0) L Monocytes (%) (Auto) 7.2 % (3.0-13.0) Eosinophils (%) (Auto) 4.9 % (0.0-8.0) Basophils (%) (Auto) 0.6 % (0.0-5.0) Neutrophils # (Auto) 7.4 K/uL (1.8-7.7) Lymphocytes # (Auto) 1.2 K/uL (1.0-4.8) Monocytes # (Auto) 0.7 K/uL (0.1-1.0) Eosinophils # (Auto) 0.48 K/uL (0.00-0.70) Basophils # (Auto) 0.06 K/uL (0.00-0.20) Absolute Immature Granulocyte (auto 0.04 K/uL (0-1) Nucleated Red Blood Cells 0.0 % (0.0-0.19) Sodium Level 140 mmol/L (136-145) Potassium Level 4.2 mmol/L (3.5-5.1) Chloride Level 106 mmol/L (101-111) Carbon Dioxide Level 23 mmol/L (21-32) Blood Urea Nitrogen 52 mg/dL (7-18) H Creatinine 3.7 mg/dL (0.5-1.3) H Glomerular Filtration Rate Calc 16 mL/min (>90) Random Glucose 123 mg/dL (70-105) H Total Calcium 8.2 mg/dL (8.5-10.1) L Troponin I High Sensitivity 35 ng/L (4-75) B-Type Natriuretic Peptide 1950 pg/mL (0-100) H Influenza Type A Antigen Negative For Type A Influenza Type B Antigen Negative For Type B SARS-CoV-2 Antigen (Rapid) PRESUMPTIVE NEGATIVE Labs Reviewed?: Yes EKG: (+) rhythm (Sinus rhythm) EKG Comment: Date:08/21/2024 Time:0049 Ventricular rate:74 PA interval:191 QRS duration:94 QT/QTc:435 EKG interpretation: Sinus rhythm Reviewed by ED Attending no STEMI ED Course ED Course Orders Procedure Category Date Status Time Cbc With Differential LAB 08/21/24 Complete 00:41 Basic Metabolic Panel LAB 08/21/24 Complete 00:41 B-Type Natriuretic LAB 08/21/24 Complete Peptide 00:41 Troponin I High LAB 08/21/24 Complete Sensitivity 00:41 12 Lead Ekg Tracing- EKG 08/21/24 Complete Technical 00:41 Chest 1vw RAD 08/21/24 Taken 00:41 Covid19 (Sars Antigen LAB 08/21/24 Complete Rapid) 01:07 Influenza Type A & B, LAB 08/21/24 Complete Rapid 01:07 Furosemide 40mg Vial PHA 08/21/24 Complete (Lasix 40mg Vial) 01:30 Edm Admit Bridge Order ADM 08/21/24 Transmitted 02:47 Admit Orders ADM 08/21/24 Transmitted 02:47 Current Medications Medications (Trade) Dose Ordered Sig/Harley Route PRN Reason Start Time Stop Time Status Last Admin Dose Admin Furosemide (LASix 40MG VIAL) 40 mg ONCE ONCE IV 08/21/24 01:30 08/21/24 01:31 DC 08/21/24 01:16 Vital Signs Date Time Temp Pulse Resp B/P (MAP) Pulse Ox O2 Delivery O2 Flow Rate FiO2 08/21/24 02:40 73 20 153/48 97 Nasal Cannula* 2 28 08/21/24 00:25 98.4 77 18 130/81 96 Room Air Medical Decision Making MDM MDM: The patient is an 84-year-old male with a history of kidney disease, CAD, hypertension, CABG who presents to the emergency department with complaints of shortness of breath. Patient also reports a nonproductive cough and lower extremity swelling. Reports he was admitted to the hospital for kidney failure a month ago. Patient reports no history of dialysis. Patient reports he has been dealing with the shortness of breath for about a month but it has progressively gotten worse. Patient denies any fevers, sore throat, ear pain or any other symptoms. Denies any chest pain CBC showed no leukocytosis, mild normocytic anemia,, creatinine of 3.7 Patient with a history of kidney disease not on dialysis, BNP of a 1950, negative troponin, serology negative. Patient was given IV diuretics and admitted for further evaluation and treatment. Differential diagnosis: Fluid overload, CHF exacerbation, pneumonia, upper respiratory infection, ACS Comorbidities: CABG, renal failure, CAD, hypertension Tests considered and not ordered secondary to shared decision making include: none Previous outside records reviewed: none Risk of complication and/or morbidity or mortality of patient management: The patient meets criteria for admission. Need for emergency major/minor surgery: No There are no social concerns with this patient. I independently interpreted the tests I ordered (labs, urinalysis, etc.). I discussed the case with the hospitalist for admission. Chu who accepts admission I discussed the case with the following specialists: none. Historian: pateint. I independently interpreted imaging studies and EKGs that I ordered (US, CT, XR, EKG, etc.). External chart review: none. Medical management and examination interpretation discussions were had by me with other qualified healthcare professionals as indicated for the patient's care. DX & DISP Disposition: Inpatient Decision to Admit Date: Aug 21, 2024 Decision to Admit Time: 02:51 Departure Impression: Primary Impression: CHF (congestive heart failure) Additional Impressions: Acute exacerbation of chronic heart failure, Dyspnea on exertion, CKD (chronic kidney disease), Anemia Condition: Stable Referrals: MAIA GUAN MD (PCP) I have reviewed the case, and I agree with, Diagnosis and Plan CASEY SANCHEZ [facility] Aug 21, 2024 01:54
[2024-08-21 04:40] VITALS: BP 151/51; PULSE 78; RESP 20; TEMP 98; O2SAT 97
--- NOTE | 2024-08-21 04:40 | NUR ---
ADMIT PT ADMITTED TO ROOM 302, AAOX4. NO RESPIRATORY DISTRESS NOTED AT THIS TIME. NO COMPLAINTS OF PAINS. MAINTAINED O2 AT 2LPM VIA NC. ADMISSION CARE DONE. V/S MONITORED, STABLE. PLACED ON TELE MONITOR, NSR WITH HR=88 BPM. ADMISSION ASSESSMENT DONE, PLEASE REFER TO CHART. ADMISSION DATA BASE COMPLETED. HOME MEDS UPDATED IN THE COMPUTER AND CONTINUED ORDERED BY MD. ORIENTED TO ROOM AND UNIT. IN FOR MORE CARE AND MANAGEMENT. Addendum: 08/21/24 at 0657 by CARLITOS CASTILLO RN RN Amended: Links added.
[2024-08-21 05:00] LABS: BASOPHILS # (AUTO) 0.06 K/uL (0.00-0.20); BASOPHILS % (AUTO) 0.6 % (0.0-5.0); EOSINOPHILS # (AUTO) 0.42 K/uL (0.00-0.70); EOSINOPHILS % (AUTO) 4.5 % (0.0-8.0); HEMATOCRIT 26.9 % (42-54); IMMATURE GRANULOCYTE ABSOLUTE 0.03 K/uL (0-1); LYMPHOCYTES # (AUTO) 1.2 K/uL (1.0-4.8); LYMPHOCYTES % (AUTO) 12.5 % (21.0-51.0); MEAN CORPUSCULAR HEMOGLOBIN 31.9 pg (27.0-33.0); MEAN CORPUSCULAR HGB CONC 32.3 g/dL (32.0-36.0); MEAN CORPUSCULAR VOLUME 98.5 fL (79-99); MONOCYTES # (AUTO) 0.6 K/uL (0.1-1.0); MONOCYTES % (AUTO) 6.5 % (3.0-13.0); NEUTROPHILS % (AUTO) 75.6 % (40.0-77.0); PLATELET COUNT (AUTO) 266 K/uL (130-400); RED BLOOD CELL COUNT(AUTO) 2.73 MIL/uL (4.50-6.20); RED CELL DISTRIBUTION WIDTH 15.4 % (11.0-15.5); WHITE BLOOD COUNT (AUTO) 9.3 K/uL (4.8-10.8)
[2024-08-21] MEDS ORDERED: ACET-66 PO (05:10)
[2024-08-21 05:18] LABS: ALBUMIN 2.6 g/dL (3.5-5.0); BILIRUBIN,TOTAL 0.5 mg/dL (0.2-1.0); CREATININE 3.7 mg/dL (0.5-1.3); POTASSIUM 3.6 mmol/L (3.5-5.1); TOTAL PROTEIN, SERUM 6.7 g/dL (6.0-8.3)
[2024-08-21] MEDS: levoTHYROxine 25 MCG TABLET PO SCH (06:06)
--- NOTE | 2024-08-21 07:15 | NUR ---
MD DR ESPINO IN AND ORDERED TO CHANGE PROVIDER TO DR GUAN. ENDORSING TO AM SHIFT NURSE FOR MORE CARE.
[2024-08-21 07:30] VITALS: O2SAT 94
[2024-08-21 08:00] VITALS: BP 153/54; PULSE 75; RESP 18; TEMP 97.6
[2024-08-21] MEDS: HEParin 5,000 UNIT VIAL SQ SCH (09:00)
[2024-08-21] MEDS: Cholecalciferol (Vitamin D3) (Vitamin D3) 1 CAP) PO SCH (09:00)
[2024-08-21] MEDS: hydrALAZine 25MG TABLET PO SCH (09:55)
[2024-08-21] MEDS: ISOSORBIDE MONO 60MG SR TAB PO SCH (09:55)
[2024-08-21] MEDS: MEMANtine HCL 5 MG TABLET PO SCH (09:55)
[2024-08-21] MEDS: metOPROLol sucCINATE 50 MG TAB.SR.24H PO SCH (09:55)
[2024-08-21] MEDS: amLODIPine 5 MG TAB PO SCH (09:55)
[2024-08-21] MEDS: furoSEMIDE 40MG VIAL IV SCH ×2 (09:56→15:30)
--- NOTE | 2024-08-21 09:56 | NUR ---
PT REFUSED HEPARIN EDUCATION GIVEN TO PT. PT VERBALIZED UNDERSTANDING. PT CONTINUES TO REFUSE. FAMILY AT BEDSIDE.
--- NOTE | 2024-08-21 10:25 | HMCIMG ---
CHEST 1VW REASON: SOB COMPARISON: 07/30/2024 FINDINGS: Heart size stable. Right lung is clear. There is atelectasis or effusion obscuring the left hemidiaphragm, the effusion is favored. This was present on prior exam as well. Sternotomy is noted IMPRESSION: 1. Infiltrate or effusion obscuring the left hemidiaphragm. 2. Otherwise unremarkable exam.
[2024-08-21 12:00] VITALS: BP 152/49; PULSE 68; RESP 18; TEMP 97.6
--- NOTE | 2024-08-21 12:23 | CONS ---
GENERAL SURGERY CONSULTATION NOTE Date/Time Patient Seen: [ August 21, 2024] Requesting Physician: [ Dr. Dumont] Reason for Consultation: [Placement of peritoneal dialysis catheter ] History of Present Illness: [Patient with a history of coronary artery disease, chronic renal failure, hypertension presents to the the ER complaining of increasing shortness of breath. Patient was found to have worsening renal function. Patient was admitted for diuresis and evaluation by the second helper. Based on the conversation with the second helper as well with the patient patient has decided try peritoneal dialysis. Patient is currently not on any form of dialysis. Patient denies any of abdominal discomfort. Patient indicates his shortness of breath has been progressively getting worse over the last few months. Heating system renal function has declined due to his hypertension that was uncontrolled. Patient denies any melena, hematochezia, hematuria. Patient denies any abdominal pain. ] Past Medical History: [ Coronary artery disease, hypertension, CHF] Past Surgical History: [Coronary artery bypass graft ] Family History: [Noncontributory ] Social History: [Patient denies any illicit drug use ] Habits: [Never] smoker. [Denies] alcohol consumption. [Denies] illicit drug use Current Medications Medications (Trade) Dose Ordered Sig/Harley Route Start Time Stop Time Status Last Admin Dose Admin Amlodipine Besylate (NorvASC 5MG TAB) 10 mg DAILY PO 08/21/24 09:00 09/20/24 08:59 08/21/24 09:55 10 MG Aspirin (Aspirin 81mg Chew Tab) 81 mg DAILYDINNER PO 08/21/24 17:00 09/20/24 16:59 Atorvastatin Calcium (LIPItor 40MG) 40 mg HS PO 08/21/24 21:00 09/20/24 20:59 Furosemide (LASix 40MG VIAL) 40 mg Q8H IV 08/21/24 08:00 09/20/24 07:59 08/21/24 09:56 40 MG Heparin Sodium (Porcine) (HEParin 5,000 UNIT VIAL) 5,000 unit Q12H SQ 08/21/24 09:00 09/20/24 08:59 Home Med (Home Medication) DAILY PO 08/21/24 09:00 09/20/24 08:59 Hydralazine HCl ([id number] TAB) 25 mg TID PO 08/21/24 09:00 09/20/24 08:59 08/21/24 09:55 25 MG Isosorbide Mononitrate (Imdur 60mg Sr) 60 mg BID PO 08/21/24 09:00 09/20/24 08:59 08/21/24 09:55 60 MG Levothyroxine Sodium (SYNTHroid 25MCG TAB) 25 mcg SYN PO 08/21/24 06:30 09/20/24 06:29 08/21/24 06:06 25 MCG Memantine (NAmenDA 5 MG TAB) 10 mg DAILY PO 08/21/24 09:00 09/20/24 08:59 08/21/24 09:55 10 MG Metoprolol Succinate (TopROL XL) 100 mg DAILY PO 08/21/24 09:00 09/20/24 08:59 08/21/24 09:55 100 MG Review of Systems: Fourteen point review of systems negative except was mentioned in history of present illness Physical Examination: PHYSICAL EXAM EYES: Sclera white HENT: Oral nasal mucosa pink and moist NECK: Supple, . LUNGS: Slightly labored CARDIOVASCULAR: Regular rate and rhythm ABDOMEN: Soft, nontender, nondistended CENTRAL NERVOUS SYSTEM: Awake, alert, oriented x3 SKIN: No rashes, no swelling. LYMPHATICS: No peripheral lymphadenopathy MUSCULOSKELETAL: Motor and sensory function grossly intact EXTREMITIES: No cyanosis or clubbing BACK: No deformity, no pressure ulcer. GENITOURINARY: No dysuria or hematuria Vital Signs (last 8hr) Date Time Temp Pulse Resp B/P (MAP) Pulse Ox O2 Delivery O2 Flow Rate FiO2 08/21/24 08:00 97.5 75 18 153/54 94 2.0 24 08/21/24 04:40 97 Nasal Cannula* 2 28 08/21/24 04:40 98.1 78 20 151/51 91 Nasal Cannula Laboratory: [ ] Hematology Labs: Test 08/21/24 04:20 Range/Units White Blood Count 9.3 4.8-10.8 K/uL Red Blood Count 2.73 L 4.50-6.20 MIL/uL Hemoglobin 8.7 L 14.0-18.0 g/dL Hematocrit 26.9 L 42-54 % Mean Corpuscular Volume 98.5 79-99 fL Mean Corpuscular Hemoglobin 31.9 27.0-33.0 pg Mean Corpuscular Hemoglobin Concent 32.3 32.0-36.0 g/dL Red Cell Distribution Width 15.4 11.0-15.5 % Platelet Count 266 130-400 K/uL Mean Platelet Volume 11.2 H 7.5-10.5 fL Immature Granulocyte % (Auto) 0.3 0-1 % Neutrophils (%) (Auto) 75.6 40.0-77.0 % Lymphocytes (%) (Auto) 12.5 L 21.0-51.0 % Monocytes (%) (Auto) 6.5 3.0-13.0 % Eosinophils (%) (Auto) 4.5 0.0-8.0 % Basophils (%) (Auto) 0.6 0.0-5.0 % Neutrophils # (Auto) 7.0 1.8-7.7 K/uL Lymphocytes # (Auto) 1.2 1.0-4.8 K/uL Monocytes # (Auto) 0.6 0.1-1.0 K/uL Eosinophils # (Auto) 0.42 0.00-0.70 K/uL Basophils # (Auto) 0.06 0.00-0.20 K/uL Absolute Immature Granulocyte (auto 0.03 0-1 K/uL Nucleated Red Blood Cells 0.0 0.0-0.19 % Chemistry Labs: Test 08/21/24 11:20 08/21/24 04:20 08/21/24 00:55 Range/Units Whole Blood Glucose 117 H 70-110 MG/DL Sodium Level 139 136-145 mmol/L Potassium Level 3.6 3.5-5.1 mmol/L Chloride Level 106 101-111 mmol/L Carbon Dioxide Level 24 21-32 mmol/L Blood Urea Nitrogen 51 H 7-18 mg/dL Creatinine 3.7 H 0.5-1.3 mg/dL Glomerular Filtration Rate Calc 16 >90 mL/min Random Glucose 111 H 70-105 mg/dL Total Calcium 8.5 8.5-10.1 mg/dL Total Bilirubin 0.5 0.2-1.0 mg/dL Aspartate Amino Transf (AST/SGOT) 29 10-37 U/L Alanine Aminotransferase (ALT/SGPT) 30 12-78 U/L Alkaline Phosphatase 119 50-136 U/L Total Protein 6.7 6.0-8.3 g/dL Albumin 2.6 L 3.5-5.0 g/dL Troponin I High Sensitivity 35 4-75 ng/L B-Type Natriuretic Peptide 1950 H 0-100 pg/mL Diagnostics / Radiology: [Copy/Paste Echos/Imaging Report here] Assessment: [Chronic kidney disease requiring dialysis] Plan: [ Plan placement of peritoneal dialysis catheter. Risks associated with the procedure not limited to infection, bleeding, injury to surrounding structures has been discussed with the patient and his family and they indicate they understand. We will await cardiac clearance as well as optimization of patient's CHF status prior to taking the patient to surgery. Hopefully I can place a peritoneal dialysis catheter on of this week.] NAEL MENDEZ MD Aug 21, 2024 12:23
--- NOTE | 2024-08-21 13:19 | HP ---
HISTORY AND PHYSICAL NOTE DATE OF CONSULTATION: 08/21/24 REASON FOR CONSULTATION: Shortness of breath HISTORY OF PRESENT ILLNESS: The patient is an 84-year-old male with a history of kidney disease, CAD, hypertension, CABG who presents to the emergency department with complaints of shortness of breath. Patient also reports a nonproductive cough and lower extremity swelling. Reports he was admitted to the hospital for kidney failure a month ago. Patient reports no history of dialysis. Patient reports he has been dealing with the shortness of breath for about a month but it has progressively gotten worse. Patient denies any fevers, sore throat, ear pain or any other symptoms. Denies any chest pain Allergies: Coded Allergies: No Known Drug Allergies (Verified Allergy, Unknown, 07/23/15) Home Meds Reported Medications Amoxicillin/Potassium Clav (Amox Tr-K Clv 875-125 mg Tab) 875 Mg-125 Mg Tablet, 1 TAB PO BID for 10 Days, #20 TAB 0 Refills 07/21/24 Metoprolol Succinate (Metoprolol Succinate) 25 Mg Tab.er.24h, 2 TAB PO DAILY for 30 Days, #30 TAB 0 Refills 07/21/24 Hydralazine HCl (Hydralazine HCl) 100 Mg Tablet, 1 TAB PO TID for 30 Days, #90 TAB 0 Refills 07/21/24 Iron,Carbonyl/Ascorbic Acid (Iron 100-Vitamin C Tablet) 100 Mg-250 Mg Tablet, 1 EACH PO DAILY, TAB 07/01/24 Levothyroxine Sodium (Levothyroxine) 25 Mcg Capsule, 1 CAP PO DAILY for 30 Days, #30 CAP 0 Refills 07/01/24 Atorvastatin Calcium (Atorvastatin Calcium) 40 Mg Tablet, 1 TAB PO DAILY for 30 Days, #30 TAB 0 Refills 07/01/24 Cholecalciferol (Vitamin D3) (Vitamin D3) 25 Mcg (1000 Unit) Capsule, 1 CAP PO DAILY for 30 Days, #30 CAP 0 Refills 07/01/24 Isosorbide Mononitrate (Isosorbide Mononitrate ER) 60 Mg Tab.er.24h, 1 TAB PO BID for 30 Days, #30 TAB 0 Refills 07/01/24 Amlodipine Besylate (Amlodipine Besylate) 10 Mg Tablet, 0.5 TAB PO DAILY for 30 Days, #30 TAB 0 Refills 07/01/24 Furosemide (Furosemide) 40 Mg Tablet, 1 TAB PO DAILY for 30 Days, #30 TAB 0 Refills 07/01/24 Aspirin (Aspirin) 81 Mg Tab.chew, 81 MG PO DAILY, TAB.CHEW 04/04/24 Memantine HCl (Memantine HCl) 10 Mg Tablet, 10 MG PO DAILY, TAB 09/24/23 Past Medical History Past Medical History: Diabetes-Type II, High Cholesterol, Hypertension Surgical History: Cholecystectomy, Other Surgical History Other: AORTIC VALVE SX, CABG Family History: Negative Social History: Negative, Lives with family RN Note Reviewed/Agreed w/PFSH: Yes Review of System Dictation Constitutional: Negative for fever,chills, and weight loss Eyes: Negative for injury, pain,redness, and discharge ENT: Negative for injury,pain or swelling Cardiovascular: Negative for chest pain, palpitations, and edema Respiratory: Negative for wheezing, positive for shortness of breath, cough Abdomen/GI: Negative for abdominal pain, nausea, vomiting, diarrhea, and constipation Back: Negative for injury and pain : Negative for injury, bleeding and discharge MS/Extremity: Negative for injury and deformity Skin: Negative for rash, and discoloration Neuro: Negative for headache, weakness, numbness, tingling, and seizure Psych: Negative for suicide ideation, homicidal ideation, and hallucinations 2 28 ALLERGIES: Coded Allergies: No Known Drug Allergies (Verified Allergy, Unknown, 07/23/15) HOME MEDS: Reported Medications Acetaminophen (Tylenol) 500 Mg Tab, 500 MG PO Q6HPRN PRN for PAIN LEVEL 1 TO 3, TAB 25 Metoprolol Succinate (Metoprolol Succinate) 25 Mg Tab.er.24h, 4 TAB PO DAILY for 30 Days, #30 TAB 0 Refills 07/21/24 Hydralazine HCl (Hydralazine HCl) 100 Mg Tablet, 1 TAB PO TID for 30 Days, #90 TAB 0 Refills 07/21/24 Levothyroxine Sodium (Levothyroxine) 25 Mcg Capsule, 1 CAP PO DAILY for 30 Days, #30 CAP 0 Refills 07/01/24 Atorvastatin Calcium (Atorvastatin Calcium) 40 Mg Tablet, 1 TAB PO HS for 30 Days, #30 TAB 0 Refills 07/01/24 Cholecalciferol (Vitamin D3) (Vitamin D3) 25 Mcg (1000 Unit) Capsule, 1 CAP PO DAILY for 30 Days, #30 CAP 0 Refills 07/01/24 Isosorbide Mononitrate (Isosorbide Mononitrate ER) 60 Mg Tab.er.24h, 1 TAB PO BID for 30 Days, #30 TAB 0 Refills 07/01/24 Amlodipine Besylate (Amlodipine Besylate) 10 Mg Tablet, 1 TAB PO DAILY for 30 Days, #30 TAB 0 Refills 07/01/24 Furosemide (Furosemide) 40 Mg Tablet, 3 TAB PO BIDMEALS for 30 Days, #30 TAB 0 Refills 07/01/24 Aspirin (Aspirin) 81 Mg Tab.chew, 81 MG PO DAILYDINNER, TAB.CHEW 04/04/24 Memantine HCl (Memantine HCl) 10 Mg Tablet, 10 MG PO DAILY, TAB 09/24/23 Discontinued Reported Medications Amoxicillin/Potassium Clav (Amox Tr-K Clv 875-125 mg Tab) 875 Mg-125 Mg Tablet, 1 TAB PO BID for 10 Days, #20 TAB 0 Refills 07/21/24 Iron,Carbonyl/Ascorbic Acid (Iron 100-Vitamin C Tablet) 100 Mg-250 Mg Tablet, 1 EACH PO DAILY, TAB 07/01/24 INPATIENT MEDS: Current Medications Medications Dose Ordered Sig/Harley Start Time Stop Time Status Last Admin Furosemide 40 mg Q8H 08/21/24 08:00 09/20/24 07:59 08/21/24 09:56 Heparin Sodium (Porcine) 5,000 unit Q12H 08/21/24 09:00 09/20/24 08:59 Acetaminophen 500 mg Q6H6 PRN 08/21/24 05:30 09/20/24 05:29 Aspirin 81 mg DAILYDINNER 08/21/24 17:00 09/20/24 16:59 Atorvastatin Calcium 40 mg HS 08/21/24 21:00 09/20/24 20:59 Isosorbide Mononitrate 60 mg BID 08/21/24 09:00 09/20/24 08:59 08/21/24 09:55 Metoprolol Succinate 100 mg DAILY 08/21/24 09:00 09/20/24 08:59 08/21/24 09:55 Amlodipine Besylate 10 mg DAILY 08/21/24 09:00 09/20/24 08:59 08/21/24 09:55 Home Med DAILY 08/21/24 09:00 09/20/24 08:59 Hydralazine HCl 25 mg TID 08/21/24 09:00 09/20/24 08:59 08/21/24 09:55 Levothyroxine Sodium 25 mcg SYN 08/21/24 06:30 09/20/24 06:29 08/21/24 06:06 Memantine 10 mg DAILY 08/21/24 09:00 09/20/24 08:59 08/21/24 09:55 VITAL SIGNS Vital Signs Date Time Temp Pulse Resp B/P (MAP) Pulse Ox O2 Delivery O2 Flow Rate FiO2 08/21/24 12:00 97.5 68 18 152/49 95 Nasal Cannula 2.0 24 08/21/24 08:00 97.5 75 18 153/54 94 2.0 08/21/24 04:40 97 Nasal Cannula* 2 08/21/24 04:40 98.1 78 20 151/51 91 Nasal Cannula 08/21/24 04:05 98.2 75 19 154/53 97 Nasal Cannula* 2 08/21/24 02:40 73 20 153/48 97 Nasal Cannula* 2 08/21/24 00:25 98.4 77 18 130/81 96 Room Air PHYSICAL EXAM Physical Exam Dictation Vital Signs reviewed General Appearance: Alert, oriented x 3, mildly distress, well developed, nourished. Head and Face: non-traumatic. Eyes: PERRL, pink conjunctivas, eyelid no trauma, anterior chamber with arcus senilis. Ears: Pinnas intact and no signs of trauma or erythema ear canals clear and no discharge TM no erythema Nose: No discharge, no bleeding. Oropharynx: Mouth normal, tongue pink. pharynx clear,no erythema, tonsils no exudates, no abscesses noted, mucous membrane moist Neck: Supple, non-tender, no thyromegaly, no masses, no JVD, no bruits Breast:Deferred Chest:No tenderness, no crepitus, no paradoxical movement, no retractions Lungs:Clear, well-ventilated, symmetric, no rales, no wheezing, no rhonchi, no stridor, good breath sounds bilaterally Heart: Regular rate, regular rhythm, no murmur, no gallops Vascular: 3+ bilateral pitting edema Abdomen: Soft, positive bowel sounds, nondistended, no guarding, nontender, no rebound, no masses no hepatomegaly, no splenomegaly, no Fenton's sign, no hernias. Rectal: Deferred Genital: Deferred Neurological: Normal speech, motor function intact, sensory function intact Musculoskeletal: Neck nontender, full range of motion, back nontender, full range of motion, Extremities: nontender, full range of motion Skin: Color pink, dry, no turgor, no rash, no lacerations, no abrasions, no contusions. Lymphatic: Deferred LABORATORY RESULTS Laboratory Tests 08/21/24 00:55: White Blood Count 9.9, Red Blood Count 2.61, Hemoglobin 8.3, Hematocrit 25.9, Mean Corpuscular Volume 99.2, Mean Corpuscular Hemoglobin 31.8, Mean Corpuscular Hemoglobin Concent 32.0, Red Cell Distribution Width 15.5, Platelet Count 266, Mean Platelet Volume 11.5, Immature Granulocyte % (Auto) 0.4, Neutrophils (%) (Auto) 75.2, Lymphocytes (%) (Auto) 11.7, Monocytes (%) (Auto) 7.2, Eosinophils (%) (Auto) 4.9, Basophils (%) (Auto) 0.6, Neutrophils # (Auto) 7.4, Lymphocytes # (Auto) 1.2, Monocytes # (Auto) 0.7, Eosinophils # (Auto) 0.48, Basophils # (Auto) 0.06, Absolute Immature Granulocyte (auto 0.04, Nucleated Red Blood Cells 0.0, Sodium Level 140, Potassium Level 4.2, Chloride Level 106, Carbon Dioxide Level 23, Blood Urea Nitrogen 52, Creatinine 3.7, Glomerular Filtration Rate Calc 16, Random Glucose 123, Total Calcium 8.2, Troponin I High Sensitivity 35, B-Type Natriuretic Peptide 1950 08/21/24 01:22: Influenza Type A Antigen Negative For Type A, Influenza Type B Antigen Negative For Type B, SARS-CoV-2 Antigen (Rapid) PRESUMPTIVE NEGATIVE 08/21/24 04:20: White Blood Count 9.3, Red Blood Count 2.73, Hemoglobin 8.7, Hematocrit 26.9, Mean Corpuscular Volume 98.5, Mean Corpuscular Hemoglobin 31.9, Mean Corpuscular Hemoglobin Concent 32.3, Red Cell Distribution Width 15.4, Platelet Count 266, Mean Platelet Volume 11.2, Immature Granulocyte % (Auto) 0.3, Neutrophils (%) (Auto) 75.6, Lymphocytes (%) (Auto) 12.5, Monocytes (%) (Auto) 6.5, Eosinophils (%) (Auto) 4.5, Basophils (%) (Auto) 0.6, Neutrophils # (Auto) 7.0, Lymphocytes # (Auto) 1.2, Monocytes # (Auto) 0.6, Eosinophils # (Auto) 0.42, Basophils # (Auto) 0.06, Absolute Immature Granulocyte (auto 0.03, Nucleated Red Blood Cells 0.0, Sodium Level 139, Potassium Level 3.6, Chloride Level 106, Carbon Dioxide Level 24, Blood Urea Nitrogen 51, Creatinine 3.7, Glomerular Filtration Rate Calc 16, Random Glucose 111, Total Calcium 8.5, Total Bilirubin 0.5, Aspartate Amino Transf (AST/SGOT) 29, Alanine Aminotransferase (ALT/SGPT) 30, Alkaline Phosphatase 119, Total Protein 6.7, Albumin 2.6 08/21/24 05:15: Whole Blood Glucose 117 08/21/24 11:20: Whole Blood Glucose 117 PROBLEM LIST: (1) CKD (chronic kidney disease) stage 5, GFR less than 15 ml/min ICD Codes: N18.5 - Chronic kidney disease, stage 5 (2) CHF (congestive heart failure) ICD Codes: I50.9 - Heart failure, unspecified (3) Chronic renal insufficiency ICD Codes: N18.9 - Chronic kidney disease, unspecified (4) CAD (coronary artery disease) ICD Codes: I25.10 - Atherosclerotic heart disease of [place] coronary artery without angina pectoris (5) Aortic stenosis ICD Codes: I35.0 - Nonrheumatic aortic (valve) stenosis PLAN Admit diurese consult Nephrology may required dialysis if not responding to diuretics KARTIK ESPINO MD Aug 21, 2024 13:19
[2024-08-21] MEDS ORDERED: PHARMACY COMMUNICATION MISC SCH (14:30)
--- NOTE | 2024-08-21 14:37 | CONS ---
NEPHROLOGY CONSULTATION NOTE Date/Time Patient Seen: Aug 21, 2024 1400 Reason for Consultation: Fluid overload, renal failure HISTORY OF PRESENT ILLNESS: This is an 84-year-old male with a past medical history of hypertension, chronic kidney disease, coronary artery disease, hyperlipidemia, CHF. He presented to the emergency with complaints of shortness of breath. Chest x-ray noted He has been started on diuretics He was noted to have elevated BUN/creatinine We have been consulted for renal failure Renal function remains elevated Electrolytes are stable. Renal biopsy to unknown 04/11/2024 showed diffuse diabetic glomerulosclerosis Dr. Ashby has been consulted for PD catheter placement He was seen in the medical floor, in no acute distress No family at bedside Prognosis remains guarded REVIEW OF SYSTEMS: GENERAL: Positive for shortness of breath NEUROLOGIC: Negative for any blurry vision, blind spots, double vision, facial asymmetry, dysphagia, dysarthria, hemiparesis, hemisensory deficits, vertigo, ataxia. HEENT: Negative for any head trauma, neck trauma, neck stiffness, photophobia, phonophobia, sinusitis, rhinitis. CARDIAC: Negative for any chest pain, dyspnea on exertion, paroxysmal nocturnal dyspnea, peripheral edema. PULMONARY: Negative for any shortness of breath, wheezing, COPD, or TB exposure. GASTROINTESTINAL: Negative for any abdominal pain, nausea, vomiting, bright red blood per rectum, melena. GENITOURINARY: Negative for any dysuria, hematuria, incontinence. INTEGUMENTARY: Negative for any rashes, cuts, insect bites. RHEUMATOLOGIC: Negative for any joint pains, photosensitive rashes, history of vasculitis or kidney problems. HEMATOLOGIC: Negative for any abnormal bruising, frequent infections or bleeding. PAST MEDICAL HISTORY: Hypertension, hyperlipidemia, hypothyroidism, CKD, severe critical aortic stenosis s/p bioprosthetic aortic valve replacement, diabetic glomerulosclerosis PAST SURGICAL HISTORY: Bioprosthetic aortic valve replacement and bypass surgery x 3 Cholecystectomy CABG Renal biopsy PAST SOCIAL HISTORY: Denies use of alcohol, tobacco or illicit drug FAMILY HISTORY: Noncontributory PHYSICAL EXAM: GENERAL: Alert and oriented x 3. No acute distress. Well-nourished. EYES: EOMI. Anicteric. HENT: Moist mucous membranes. No scleral icterus. No cervical lymphadenopathy. LUNGS: Clear to auscultation bilaterally. No accessory muscle use. CARDIOVASCULAR: Regular rate and rhythm. No murmur. No JVD. ABDOMEN: Soft, non-tender and non-distended. No palpable masses. EXTREMITIES: No edema. Non-tender.?SKIN: No rashes or lesions. Warm. NEUROLOGIC: No focal neurological deficits. CN II-XII grossly intact, but not individually tested. PSYCHIATRIC: Cooperative. Appropriate mood and affect. MEDICATIONS: [ ] Current Medications Medications (Trade) Dose Ordered Sig/Harley Route PRN Reason Start Time Stop Time Status Last Admin Dose Admin Acetaminophen (TYLenol 500MG TAB) 500 mg Q6H6 PRN PO PAIN LEVEL 1 TO 3 08/21/24 05:30 09/20/24 05:29 Amlodipine Besylate (NorvASC 5MG TAB) 10 mg DAILY PO 08/21/24 09:00 09/20/24 08:59 08/21/24 09:55 10 MG Aspirin (Aspirin 81mg Chew Tab) 81 mg DAILYDINNER PO 08/21/24 17:00 09/20/24 16:59 Atorvastatin Calcium (LIPItor 40MG) 40 mg HS PO 08/21/24 21:00 09/20/24 20:59 Furosemide (LASix 40MG VIAL) 40 mg Q8H IV 08/21/24 08:00 09/20/24 07:59 08/21/24 09:56 40 MG Heparin Sodium (Porcine) (HEParin 5,000 UNIT VIAL) 5,000 unit Q12H SQ 08/21/24 09:00 09/20/24 08:59 Home Med (Home Medication) DAILY PO 08/21/24 09:00 09/20/24 08:59 Hydralazine HCl ([id number] TAB) 25 mg TID PO 08/21/24 09:00 09/20/24 08:59 08/21/24 13:28 25 MG Isosorbide Mononitrate (Imdur 60mg Sr) 60 mg BID PO 08/21/24 09:00 09/20/24 08:59 08/21/24 09:55 60 MG Levothyroxine Sodium (SYNTHroid 25MCG TAB) 25 mcg SYN PO 08/21/24 06:30 09/20/24 06:29 08/21/24 06:06 25 MCG Memantine (NAmenDA 5 MG TAB) 10 mg DAILY PO 08/21/24 09:00 09/20/24 08:59 08/21/24 09:55 10 MG Metoprolol Succinate (TopROL XL) 100 mg DAILY PO 08/21/24 09:00 09/20/24 08:59 08/21/24 09:55 100 MG Pharmacy Profile Note (Pharmacy Communication) 1 each AD MISC 08/21/24 14:30 08/21/24 14:22 DC Vital Signs (last 8hr) Date Time Temp Pulse Resp B/P (MAP) Pulse Ox O2 Delivery O2 Flow Rate FiO2 08/21/24 12:00 97.5 68 18 152/49 95 Nasal Cannula 2.0 24 08/21/24 08:00 97.5 75 18 153/54 94 2.0 24 DIAGNOSTICS / RADIOLOGY: REASON: SOB ORDERING PHYSICIAN: NAVIN PRATHER MD PROCEDURE: CXR1VW - CHEST 1VW CHEST 1VW REASON: SOB COMPARISON: 07/30/2024 FINDINGS: Heart size stable. Right lung is clear. There is atelectasis or effusion obscuring the left hemidiaphragm, the effusion is favored. This was present on prior exam as well. Sternotomy is noted IMPRESSION: 1. Infiltrate or effusion obscuring the left hemidiaphragm. 2. Otherwise unremarkable exam. DICTATED BY: CHASE BENSON MD DATE: 08/21/24 1018 LABORATORY: [ ] Hematology Labs: Test 08/21/24 04:20 Range/Units White Blood Count 9.3 4.8-10.8 K/uL Red Blood Count 2.73 L 4.50-6.20 MIL/uL Hemoglobin 8.7 L 14.0-18.0 g/dL Hematocrit 26.9 L 42-54 % Mean Corpuscular Volume 98.5 79-99 fL Mean Corpuscular Hemoglobin 31.9 27.0-33.0 pg Mean Corpuscular Hemoglobin Concent 32.3 32.0-36.0 g/dL Red Cell Distribution Width 15.4 11.0-15.5 % Platelet Count 266 130-400 K/uL Mean Platelet Volume 11.2 H 7.5-10.5 fL Immature Granulocyte % (Auto) 0.3 0-1 % Neutrophils (%) (Auto) 75.6 40.0-77.0 % Lymphocytes (%) (Auto) 12.5 L 21.0-51.0 % Monocytes (%) (Auto) 6.5 3.0-13.0 % Eosinophils (%) (Auto) 4.5 0.0-8.0 % Basophils (%) (Auto) 0.6 0.0-5.0 % Neutrophils # (Auto) 7.0 1.8-7.7 K/uL Lymphocytes # (Auto) 1.2 1.0-4.8 K/uL Monocytes # (Auto) 0.6 0.1-1.0 K/uL Eosinophils # (Auto) 0.42 0.00-0.70 K/uL Basophils # (Auto) 0.06 0.00-0.20 K/uL Absolute Immature Granulocyte (auto 0.03 0-1 K/uL Nucleated Red Blood Cells 0.0 0.0-0.19 % Chemistry Labs: Test 08/21/24 11:20 08/21/24 04:20 08/21/24 00:55 Range/Units Whole Blood Glucose 117 H 70-110 MG/DL Sodium Level 139 136-145 mmol/L Potassium Level 3.6 3.5-5.1 mmol/L Chloride Level 106 101-111 mmol/L Carbon Dioxide Level 24 21-32 mmol/L Blood Urea Nitrogen 51 H 7-18 mg/dL Creatinine 3.7 H 0.5-1.3 mg/dL Glomerular Filtration Rate Calc 16 >90 mL/min Random Glucose 111 H 70-105 mg/dL Total Calcium 8.5 8.5-10.1 mg/dL Total Bilirubin 0.5 0.2-1.0 mg/dL Aspartate Amino Transf (AST/SGOT) 29 10-37 U/L Alanine Aminotransferase (ALT/SGPT) 30 12-78 U/L Alkaline Phosphatase 119 50-136 U/L Total Protein 6.7 6.0-8.3 g/dL Albumin 2.6 L 3.5-5.0 g/dL Troponin I High Sensitivity 35 4-75 ng/L B-Type Natriuretic Peptide 1950 H 0-100 pg/mL ASSESSMENT: Acute on chronic renal failure S/P renal biopsy diffuse diabetic glomerulosclerosis Acute on chronic diastolic congestive heart failure Renal duplex on 07/05/2024 demonstrating less than 60% flow-rate limiting stenosis involving the left renal artery Hypertension Hyperlipidemia Hypothyroidism Severe critical aortic stenosis s/p bioprosthetic aortic valve replacement and CABG x 3 PLAN: Labs, diagnostic, radiologic exams reviewed and interpreted by myself and supervising physician. We have reviewed external records in detail Increase diuretics to 80 mg IV b.i.d. Preserve nondominant arm. From a renal standpoint, the function continues to decline and electrolytes remain unbalanced. The patient has remained hemodynamically stable and therefore we will recommend dialysis intervention to correct electrolytes as well as BUN and Creatinine. Risk and complications of renal replacement therapy, vascular access, and modalities were explained in great detail to the patient and family at the bedside. Patient and family to discuss and inform us if they wish to proceed with hemodialysis Start Nephro-Mandeep daily Continue with a renal diet Require close monitoring of renal function and electrolytes Order CBC, CMP, uric acid, complete iron panel, ferritin, hemoglobin A1c, lipid panel,PTT/PT and electrolytes in am BiPAP as necessary, for respiratory distress Monitor blood pressure adjust medication doses as needed Avoid hypotensive episodes May use Dilaudid 0.5 mg IV every 6 hours as needed for severe pain Monitor blood sugars Strict intake, output, and daily weight should be monitored Please renally adjust medications Avoid nephrotoxic and nonsteroidal drugs Avoid contrast if possible Will continue to monitor renal function, anemia, electrolytes Treatment plan discussed with patient Questions were answered We have discussed with the other team physicians in detail about the care plan We will continue to monitor the patient closely Thank you for allowing us to participate in the care of this patient ATTESTATION BY PHYSICIAN I have seen and examined the patient. I reviewed the documentation, medical decision making, and treatment plan as noted by the mid-level provider above. I agree with the findings and plan of care. DARLYN SCHULTE MD, [facility] Aug 21, 2024 14:37
[2024-08-21 16:00] VITALS: BP 131/51; PULSE 70; RESP 18; TEMP 97.6
--- NOTE | 2024-08-21 17:35 | CONS ---
[facility] CARDIOLOGY CONSULTATION REPORT Cardiology consultation note dictated for Obey Banegas MD Primary post office manager: Alvaro Mckeon MD Date Patient Seen: Aug 21, 2024 Requesting Physician: Jameel Ashby MD Reason for Consultation: Perioperative risk assessment History of Present Illness: This is an 84-year-old male with a past medical history of hypertension, hyperlipidemia, diabetes mellitus type 2, hypothyroidism, CKD stage 4, Renal duplex on 07/05/2024 demonstrating less than 60% flow-rate limiting stenosis involving the left renal artery, severe critical aortic stenosis s/p bioprosthetic aortic valve replacement and CABG x 3 (ULRICH-LAD, SVG-OM, and SVG- PDA) by Dr. Jurgen Champagne on 07/2015, abnormal Lexiscan Cardiolite demonstrating partially reversible anterolateral and inferolateral defects on 08/09/2023, LHC in 09/2023 demonstrated severe CAD, no aortic stenosis, patent ULRICH to LAD and SVG-PDA with a diseased SVG-OM, normal Lexiscan stress test on 08/02/2024, Limited 2D echo on 07/01/2024 with an EF of 50-55%, bioprosthetic aortic valve is present and displays normal functioning, moderate aortic regurgitation, PHT is 277ms, peak velocity is 2.8 m/s across the valve with a mean gradient of 23 mmHg, history of bradycardia, and recent admission for CHF on 07/21-08/04/2024 who presented to the emergency department with complaints of progressive shortness of breath, a nonproductive cough, and bilateral lower extremity edema over the course of 1 week. Cardiology has been consulted for perioperative risk assessment for the patient to undergo a peritoneal dialysis catheter placement by Dr. Jameel Ashby. The patient endorsed dyspnea with or without exertion, orthopnea, PND, and bilateral lower extremity edema that progressed over the week. The patient was discharged on Lasix 40 mg p.o. BID. He admits to compliance with oral diuretics, a low- sodium diet, and a less than 2L fluid restriction at home. BNP of 1950. Chest x- ray demonstrated bilateral infiltrates, pulmonary vascular congestion, and a small left pleural effusion. Troponin normal at 35. EKG demonstrated normal sinus rhythm with a heart rate of 74 bpm. He currently denies chest pain, chest pressure, palpitations, dizziness, nausea or vomiting. Past Medical History: As per HPI and summarized below Past Surgical History: S/p bioprosthetic aortic valve replacement and bypass surgery x 3 (ULRICH-LAD, SVG-OM, SVG- RCA) by Dr. Champagne 07/2015, Cholecystectomy Family History: The patient's siblings have been diagnosed with heart disease. Social History: The patient lives with his . Habits: The patient denies alcohol, tobacco, or illicit drug use. Home Meds: Aspirin 81 mg daily Atorvastatin 40 mg nightly Metoprolol succinate 100 mg daily Imdur 60 mg b.i.d. Hydralazine 100 mg t.i.d. Lasix 40 mg p.o. bid Amlodipine 10 mg daily Memantine 10 mg daily Levothyroxine 25 mcg daily Vitamin D3 1000 units daily Acetaminophen 500 mg every 6 hours p.r.n. pain Current Meds: Current Medications Medications Dose Ordered Sig/Harley Start Time Stop Time Status Last Admin Heparin Sodium (Porcine) 5,000 unit Q12H 08/21/24 09:00 09/20/24 08:59 Acetaminophen 500 mg Q6H6 PRN 08/21/24 05:30 09/20/24 05:29 Aspirin 81 mg DAILYDINNER 08/21/24 17:00 09/20/24 16:59 Atorvastatin Calcium 40 mg HS 08/21/24 21:00 09/20/24 20:59 Isosorbide Mononitrate 60 mg BID 08/21/24 09:00 09/20/24 08:59 08/21/24 09:55 Metoprolol Succinate 100 mg DAILY 08/21/24 09:00 09/20/24 08:59 08/21/24 09:55 Amlodipine Besylate 10 mg DAILY 08/21/24 09:00 09/20/24 08:59 08/21/24 09:55 Home Med DAILY 08/21/24 09:00 09/20/24 08:59 Hydralazine HCl 25 mg TID 08/21/24 09:00 09/20/24 08:59 08/21/24 13:28 Levothyroxine Sodium 25 mcg SYN 08/21/24 06:30 09/20/24 06:29 08/21/24 06:06 Memantine 10 mg DAILY 08/21/24 09:00 09/20/24 08:59 08/21/24 09:55 Furosemide 80 mg BID 08/21/24 15:30 09/20/24 07:59 Review of Systems: CONST: No fever, fatigue, or weight changes. EYES: No recent vision problems. ENT: No congestion, ear pain, or sore throat. C/V: No chest pain or palpitations. Admits to BLE edema. RESP: Admits to dyspnea, orthopnea, and PND GI: No abdominal pain, nausea, vomiting, constipation, or diarrhea. : No incontinence or dysuria. SKIN: No rash. NEURO: No headache, focal numbness or weakness, dizziness, or seizures. PSYCH: No depression or anxiety. HEME: No abnormal bruising or bleeding. LYMPH: No swollen glands. Physical Examination: GENERAL: No acute distress. HEAD: Normal with no signs of head trauma. EYES: PERRLA, EOMI, conjunctiva and sclera normal. ENT: Hearing grossly intact, normal oropharynx. NECK: Supple without JVD. There is no tenderness, lymphadenopathy, or masses. No thyromegaly. Normal carotid upstrokes without bruits. LUNGS: Rales bilaterally HEART: Normal rate and rhythm. Normal S1 and S2 without murmurs, gallop or rub. VASC: Peripheral pulses +2 bilaterally. ABD: Bowel sounds normal, soft, nontender, no masses, no organomegaly. No audible bruits. : Not examined LYMPH: No lymphadenopathy noted. EXT: BLE with 1+ edema SKIN: No rashes or lesions noted. NEURO: Awake, alert, and oriented x3. No focal sensory or strength deficits noted. Vital Signs (last 8hr) Date Time Temp Pulse Resp B/P (MAP) Pulse Ox O2 Delivery O2 Flow Rate FiO2 08/21/24 12:00 97.5 68 18 152/49 95 Nasal Cannula 2.0 24 Laboratory: Hematology Labs: Test 08/21/24 04:20 Range/Units White Blood Count 9.3 4.8-10.8 K/uL Red Blood Count 2.73 L 4.50-6.20 MIL/uL Hemoglobin 8.7 L 14.0-18.0 g/dL Hematocrit 26.9 L 42-54 % Mean Corpuscular Volume 98.5 79-99 fL Mean Corpuscular Hemoglobin 31.9 27.0-33.0 pg Mean Corpuscular Hemoglobin Concent 32.3 32.0-36.0 g/dL Red Cell Distribution Width 15.4 11.0-15.5 % Platelet Count 266 130-400 K/uL Mean Platelet Volume 11.2 H 7.5-10.5 fL Immature Granulocyte % (Auto) 0.3 0-1 % Neutrophils (%) (Auto) 75.6 40.0-77.0 % Lymphocytes (%) (Auto) 12.5 L 21.0-51.0 % Monocytes (%) (Auto) 6.5 3.0-13.0 % Eosinophils (%) (Auto) 4.5 0.0-8.0 % Basophils (%) (Auto) 0.6 0.0-5.0 % Neutrophils # (Auto) 7.0 1.8-7.7 K/uL Lymphocytes # (Auto) 1.2 1.0-4.8 K/uL Monocytes # (Auto) 0.6 0.1-1.0 K/uL Eosinophils # (Auto) 0.42 0.00-0.70 K/uL Basophils # (Auto) 0.06 0.00-0.20 K/uL Absolute Immature Granulocyte (auto 0.03 0-1 K/uL Nucleated Red Blood Cells 0.0 0.0-0.19 % Chemistry Labs: Test 08/21/24 15:59 08/21/24 04:20 08/21/24 00:55 Range/Units Whole Blood Glucose 123 H 70-110 MG/DL Sodium Level 139 136-145 mmol/L Potassium Level 3.6 3.5-5.1 mmol/L Chloride Level 106 101-111 mmol/L Carbon Dioxide Level 24 21-32 mmol/L Blood Urea Nitrogen 51 H 7-18 mg/dL Creatinine 3.7 H 0.5-1.3 mg/dL Glomerular Filtration Rate Calc 16 >90 mL/min Random Glucose 111 H 70-105 mg/dL Total Calcium 8.5 8.5-10.1 mg/dL Total Bilirubin 0.5 0.2-1.0 mg/dL Aspartate Amino Transf (AST/SGOT) 29 10-37 U/L Alanine Aminotransferase (ALT/SGPT) 30 12-78 U/L Alkaline Phosphatase 119 50-136 U/L Total Protein 6.7 6.0-8.3 g/dL Albumin 2.6 L 3.5-5.0 g/dL Troponin I High Sensitivity 35 4-75 ng/L B-Type Natriuretic Peptide 1950 H 0-100 pg/mL Diagnostics / Radiology: Impression and Plan: Perioperative risk assessment Acute on chronic diastolic congestive heart failure and volume overload Acute on chronic CKD stage IV nearing end stage Hypertension Hyperlipidemia 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 Jameel Ashby Limited 2D echo on 07/01/2024 with an EF of 50-55%, bioprosthetic aortic valve is present and displays normal functioning with moderate aortic regurgitation Normal Lexiscan stress test on 08/02/2024 EKG on admission is nonischemic The patient denies chest pain, chest pressure, palpitations, dizziness, nausea or vomiting. -The patient is an intermediate risk candidate for a low to intermediate risk non-cardiac procedure. The patient should undergo the procedure as the benefits outweigh the risks. HARSH HALE F[employer]ESS HELPER Aug 21, 2024 17:35
[2024-08-21] MEDS: ASPIRIN 81MG CHEW TAB PO SCH (17:53)
[2024-08-21 20:00] VITALS: BP 146/54; PULSE 70; RESP 17; TEMP 97.9; O2SAT 94
[2024-08-21] MEDS: atorVAStatin 40 MG TABLET PO SCH (21:13)
[2024-08-22] VITALS (8 sets, daily range): BP systolic 128–142; BP diastolic 44–60; PULSE 63–72; RESP 17–20; TEMP 97.4–99; O2SAT 94–97
[2024-08-22 05:01] LABS: BASOPHILS # (AUTO) 0.09 K/uL (0.00-0.20); BASOPHILS % (AUTO) 0.9 % (0.0-5.0); EOSINOPHILS # (AUTO) 0.49 K/uL (0.00-0.70); EOSINOPHILS % (AUTO) 5.1 % (0.0-8.0); IMMATURE GRANULOCYTE ABSOLUTE 0.04 K/uL (0-1); LYMPHOCYTES # (AUTO) 1.1 K/uL (1.0-4.8); LYMPHOCYTES % (AUTO) 11.4 % (21.0-51.0); MEAN CORPUSCULAR HEMOGLOBIN 31.8 pg (27.0-33.0); MEAN CORPUSCULAR HGB CONC 32.3 g/dL (32.0-36.0); MEAN CORPUSCULAR VOLUME 98.5 fL (79-99); MONOCYTES # (AUTO) 0.7 K/uL (0.1-1.0); NEUTROPHILS # (AUTO) 7.2 K/uL (1.8-7.7); NEUTROPHILS % (AUTO) 75.2 % (40.0-77.0); PLATELET COUNT (AUTO) 307 K/uL (130-400); RED BLOOD CELL COUNT(AUTO) 2.64 MIL/uL (4.50-6.20); WHITE BLOOD COUNT (AUTO) 9.6 K/uL (4.8-10.8)
[2024-08-22 05:08] LABS: HEMOGLOBIN A1C 5.4 % (4.0-6.0)
[2024-08-22 05:11] LABS: INR 1.07 (0.85-1.15); PROTHROMBIN TIME 11.3 SEC (9.6-11.6)
[2024-08-22 05:12] LABS: % IRON SATURATION 15.5 % (30-44); PARTIAL THROMBOPLASTIN TIME 30.2 SEC (26.3-35.5)
[2024-08-22 05:45] LABS: ALBUMIN 2.4 g/dL (3.5-5.0); BILIRUBIN,TOTAL 0.6 mg/dL (0.2-1.0); CREATININE 3.8 mg/dL (0.5-1.3); MAGNESIUM 1.7 mg/dL (1.80-2.40); PHOSPHORUS 4.1 mg/dL (2.5-4.9); POTASSIUM 3.6 mmol/L (3.5-5.1); THYROID STIMULATING HORMONE 4.02 uIU/mL (0.36-3.74); TOTAL PROTEIN, SERUM 6.6 g/dL (6.0-8.3); URIC ACID 10.1 mg/dL (2.6-7.2)
--- NOTE | 2024-08-22 08:37 | PN ---
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 Pending PD catheter placement. No events overnight. Pt has no fever or chills. He has no overt bleeding. He has no chest pain, shortness of breath with exertion is present but he is not ex erting much. Physical Examination: GENERAL: [No acute distress.] HEAD: [Normal with no signs of head trauma.] EYES: [PERRLA, EOMI, conjunctiva and sclera normal.] ENT: [Hearing grossly intact, normal oropharynx.] NECK: [Supple without JVD. There is no tenderness, lymphadenopathy, or masses. No thyromegaly. Normal carotid upstrokes without bruits.] LUNGS: [Clear breath sounds bilaterally, diminished bases. HEART: [Normal rate and rhythm. Normal S1 and S2 with systolic murmur, gallop or rub.] VASC: [Peripheral pulses +2 bilaterally.] ABD: [Bowel sounds normal, soft, nontender, no masses, no organomegaly. No audible bruits.] : [Not examined] LYMPH: [No lymphadenopathy noted.] EXT: [No clubbing, cyanosis or edema.] SKIN: [No rashes or lesions noted.] NEURO: [Awake, alert, and oriented x3. No focal sensory or strength deficits noted.] Laboratory: [ ] Hematology Labs: Test 08/22/24 04:27 Range/Units White Blood Count 9.6 4.8-10.8 K/uL Red Blood Count 2.64 L 4.50-6.20 MIL/uL Hemoglobin 8.4 L 14.0-18.0 g/dL Hematocrit 26.0 L 42-54 % Mean Corpuscular Volume 98.5 79-99 fL Mean Corpuscular Hemoglobin 31.8 27.0-33.0 pg Mean Corpuscular Hemoglobin Concent 32.3 32.0-36.0 g/dL Red Cell Distribution Width 15.0 11.0-15.5 % Platelet Count 307 130-400 K/uL Mean Platelet Volume 11.9 H 7.5-10.5 fL Immature Granulocyte % (Auto) 0.4 0-1 % Neutrophils (%) (Auto) 75.2 40.0-77.0 % Lymphocytes (%) (Auto) 11.4 L 21.0-51.0 % Monocytes (%) (Auto) 7.0 3.0-13.0 % Eosinophils (%) (Auto) 5.1 0.0-8.0 % Basophils (%) (Auto) 0.9 0.0-5.0 % Neutrophils # (Auto) 7.2 1.8-7.7 K/uL Lymphocytes # (Auto) 1.1 1.0-4.8 K/uL Monocytes # (Auto) 0.7 0.1-1.0 K/uL Eosinophils # (Auto) 0.49 0.00-0.70 K/uL Basophils # (Auto) 0.09 0.00-0.20 K/uL Absolute Immature Granulocyte (auto 0.04 0-1 K/uL Nucleated Red Blood Cells 0.0 0.0-0.19 % Chemistry Labs: Test 08/22/24 05:26 08/22/24 04:27 08/21/24 00:55 Range/Units Whole Blood Glucose 96 70-110 MG/DL Sodium Level 140 136-145 mmol/L Potassium Level 3.6 3.5-5.1 mmol/L Chloride Level 105 101-111 mmol/L Carbon Dioxide Level 26 21-32 mmol/L Blood Urea Nitrogen 50 H 7-18 mg/dL Creatinine 3.8 H 0.5-1.3 mg/dL Glomerular Filtration Rate Calc 15 >90 mL/min Random Glucose 95 70-105 mg/dL Hemoglobin A1c 5.4 4.0-6.0 % Estimated Average Glucose (eAG) 108 70-126 mg/dL Uric Acid 10.1 H 2.6-7.2 mg/dL Total Calcium 8.6 8.5-10.1 mg/dL Phosphorus Level 4.1 2.5-4.9 mg/dL Magnesium Level 1.70 L 1.80-2.40 mg/dL Iron Level 18 L 65-175 mcg/dL Total Iron Binding Capacity 116 L 250-450 mcg/dL Percent Iron Saturation 15.5 L 30-44 % Ferritin 1805 H 30-400 ng/mL Total Bilirubin 0.6 0.2-1.0 mg/dL Aspartate Amino Transf (AST/SGOT) 29 10-37 U/L Alanine Aminotransferase (ALT/SGPT) 22 12-78 U/L Alkaline Phosphatase 114 50-136 U/L Total Protein 6.6 6.0-8.3 g/dL Albumin 2.4 L 3.5-5.0 g/dL Triglycerides Level 92 30-200 mg/dL Cholesterol Level 133 <200 mg/dL LDL Cholesterol 73 0-99 mg/dL HDL Cholesterol 45 29-71 mg/dL Thyroid Stimulating Hormone (TSH) 4.02 #H 0.36-3.74 uIU/mL Troponin I High Sensitivity 35 4-75 ng/L B-Type Natriuretic Peptide 1950 H 0-100 pg/mL Coagulation Labs: Test 08/22/24 04:27 Range/Units Prothrombin Time 11.3 9.6-11.6 SEC Prothromb Time International Ratio 1.07 0.85-1.15 Activated Partial Thromboplast Time 30.2 26.3-35.5 SEC Diagnostics / Radiology: PATIENT: JEROMY MCLAUGHLIN MR#: [id number] : 1940 SEX: M AGE: 84 LOCATION: [facility] ORDER [id number] STATUS: ADM IN REPORT#: [id number] SERVICE [id number] REASON: SOB ORDERING PHYSICIAN: NAVIN PRATHER MD PROCEDURE: CXR1VW - CHEST 1VW CHEST 1VW REASON: SOB COMPARISON: 07/30/2024 FINDINGS: Heart size stable. Right lung is clear. There is atelectasis or effusion obscuring the left hemidiaphragm, the effusion is favored. This was present on prior exam as well. Sternotomy is noted IMPRESSION: 1. Infiltrate or effusion obscuring the left hemidiaphragm. 2. Otherwise unremarkable exam. DICTATED BY: CHASE BENSON MD DATE: 08/21/24 1018 ELECTRONICALLY SIGNED BY: CHASE BENSON MD DATE: 08/21/24 1025 Impression and Plan: Pt may proceed with HD catheter placement from cardiac standpoint, benefits outweigh risks. Monitor i/o strictly Pt may benefit from iron supplement Continue with current BP management Avoid fluid overload Continue statin Continue thyroid supplement TREVER JUAN NP Aug 22, 2024 08:37
--- NOTE | 2024-08-22 09:56 | NUR ---
DCP: HOME SW met with pt and dgt who was at bedside. Pt currently lives with dgt Angeles Mejia [phone]. Pt denied any insecurities with food, skilled nursing, and/or utilities. Pt's dgt states that they have already put in a request and are waiting for a wheelchair and hospital bed. Pt does not have a provider or home health at this time. Pt states that he is able to complete ADLs independently. Pt's dgt states that he will be beginning dialysis after this admission, will be having procedure for port on . PCP is Dr. Jcarlos Dumont and uses [facility] for any RX needs. At DC pt will go home and family will assist with transportation. Addendum: 08/22/24 at 1001 by BARB KANG SS Amended: Links added.
--- NOTE | 2024-08-22 21:16 | PN ---
NEPHROLOGY NOTE SUBJECTIVE: This patient has worsening renal failure, CHF exacerbation, fluid overload, underlying diabetic nephropathy by kidney biopsy before. The patient is considering peritoneal dialysis. We have ordered the peritoneal dialysis catheter placement. The patient has underlying diastolic heart failure, hypertension, hyperlipidemia. The patient has hypothyroidism, coronary artery disease, CABG before, previous aortic valve disease, aortic valve replacement. The patient remains weak. The patient has been on diuretics and high-dose because of CHF exacerbation. I have offered them hemodialysis, which the patient for now has declined. They are considering peritoneal dialysis in the future if possible. Overall prognosis remained guarded. REVIEW OF SYSTEMS: CONSTITUTIONAL: No fevers, chills, or rigors. HEENT: With no headache, oral ulcer, sore throat, or difficulty swallowing. RESPIRATORY: With no cough, expectoration, hemoptysis or pleuritic pain. CARDIOVASCULAR: No orthopnea or PND. Has shortness of breath. GASTROINTESTINAL: Negative for nausea, vomiting or diarrhea. GENITOURINARY: Negative for dysuria or hematuria. DERMATOLOGICAL: No rashes or pruritus. ENDOCRINE: No polyuria, polydipsia, or polyphagia. PSYCHIATRIC: Negative for anxiety, depression, or hallucination. Other systemic review is unchanged and unremarkable. PHYSICAL EXAMINATION: GENERAL: Pale, sick looking, lying in bed. VITAL SIGNS: Blood pressure is 132/53, pulse is 63, respiratory rate is 18. Afebrile. HEENT: Head is atraumatic, normocephalic. Pupils are round and reactive. Sclerae anicteric. Conjunctivae not pale. Oral mucosa is not dry. NECK: Without masses or bruits. Thyroid is palpable. Neck has no bruits. CHEST: Shows equal thoracic percussion note being resonant in all areas. CARDIAC: Regular rhythm. No rub. No S3, S4. No parasternal heave. ABDOMEN: With no guarding or tenderness. Bowel sounds present. No free fluid. EXTREMITIES: With no edema. No cyanosis or clubbing. BACK: No CVA tenderness or back deformities. SKIN: No other petechial rashes on inspection and palpation. No lymph node swelling in neck or axillary area. NEUROLOGIC: The patient is unchanged, nonfocal. No cranial nerve palsy. LABORATORY DATA: Labs have been reviewed in detail. Old records have been reviewed. Imaging studies are personally reviewed. Labs have shown creatinine is above 4. Hemoglobin is 8.4. IMAGING STUDIES: Imaging studies are reviewed. PROBLEMS: * Renal failure. * Anemia. * Fluid overload. * CHF. PLAN: * Continued monitoring. * The patient will need PD catheter placement. Hemodialysis offered. For now, they are not ready. * IV Lasix 80 b.i.d. * Continue with antihypertensives as tolerated. * One Nephro-Mandeep daily. * Iron replacement as needed. * We will continue monitoring of electrolytes and renal function. The patient's overall prognosis is guarded. Nondominant arm should be preserved in case the patient will have a followup on renal function, electrolytes, overall status. Please avoid contrast, nonsteroidal drugs. I have discussed with ____ and other team members in detail and will be following up closely. Overall condition is critical and guarded. Seen several times. Total time spent was more than 50 minutes. TID: [id number] RECEIPT: [id number]
[2024-08-23] VITALS (9 sets, daily range): BP systolic 130–138; BP diastolic 44–52; PULSE 63–71; RESP 17–18; TEMP 97.7–98.8; O2SAT 95–97
--- NOTE | 2024-08-23 04:31 | PN ---
SUBJECTIVE: The patient was admitted yesterday for assessment and treatment of shortness of breath and pulmonary congestion. The patient was scheduled to have a surgical consultation for placement of peritoneal dialysis catheter. Dr. Guevara called me to request some referral. We called Dr. Ashby. The patient is scheduled to have peritoneal dialysis catheter day after tomorrow. OBJECTIVE: GENERAL: Otherwise, he is feeling uncomfortable, not in distress with oxygen 2 liters nasal cannula. VITAL SIGNS: Blood pressure is 142/60, pulse 69, respiratory rate 18. HEENT: Normocephalic, atraumatic. LUNGS: Clear to auscultation. HEART: S1, S2 are distant. ABDOMEN: Soft, nontender. EXTREMITIES: No clubbing or cyanosis. LABORATORY DATA: WBC count 9.6, hemoglobin 8.4, platelets 307. Sodium 140, potassium 3.6, BUN 50, creatinine 3.8. GFR 15. Uric acid 10.1. Magnesium 1.7. Ferritin 1800. TSH 4.02. Albumin 2.4. ASSESSMENT AND PLAN: * Respiratory failure. Continue with oxygen. * Volume overload. The patient is scheduled to have peritoneal dialysis, started after the catheter is placed. He has had several admissions in the past for the same reason. * Hypertension, controlled. * Dyslipidemia, controlled. * Aortic valve regurgitation. Continue recommendation by Cardiology. * Coronary artery disease, status post CABG, stable. * Anemia. Continue to monitor secondary to chronic kidney disease. Follow up in the a.m. with results. DOS: 08/22/2024 TID: [id number] RECEIPT: [id number] [facility]
[2024-08-23 04:55] LABS: MEAN CORPUSCULAR HEMOGLOBIN 32.2 pg (27.0-33.0); MEAN CORPUSCULAR HGB CONC 33.5 g/dL (32.0-36.0); MEAN CORPUSCULAR VOLUME 96.2 fL (79-99); RED BLOOD CELL COUNT(AUTO) 2.39 MIL/uL (4.50-6.20); RED CELL DISTRIBUTION WIDTH 14.8 % (11.0-15.5)
[2024-08-23 05:10] LABS: ALBUMIN 2.2 g/dL (3.5-5.0); BILIRUBIN,TOTAL 0.4 mg/dL (0.2-1.0); CREATININE 3.7 mg/dL (0.5-1.3); MAGNESIUM 1.7 mg/dL (1.80-2.40); PHOSPHORUS 3.9 mg/dL (2.5-4.9); POTASSIUM 3.3 mmol/L (3.5-5.1)
--- NOTE | 2024-08-23 06:52 | PN ---
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 Pending PD catheter placement. No events overnight. Pt has no fever or chills. He has no overt bleeding. He has no chest pain, shortness of breath with exertion is present but he is not exerting much. 08/23/24 Pt evaluated in his room, still pending intervention for PD catheter, was offered HD per nephrology but they are not interested at this time in that modality for renal replacement. Pt is with drifting Hgb. No overt bleeding. Iron supplement started. He denies any overnight chest pain, sob is exertional. He still has difficulty lying down at night. Pt continues on lasix, edema improving. Physical Examination: GENERAL: [No acute distress, pallor noted.] HEAD: [Normal with no signs of head trauma.] EYES: [PERRLA, EOMI, conjunctiva pale and sclera normal.] ENT: [Hearing grossly intact, normal oropharynx.] NECK: [Supple without JVD. There is no tenderness, lymphadenopathy, or masses. No thyromegaly. Normal carotid upstrokes without bruits.] LUNGS: [Clear breath sounds bilaterally, diminished bases. HEART: [Normal rate and rhythm. Normal S1 and S2 with systolic murmur, gallop or rub.] VASC: [Peripheral pulses +2 bilaterally.] ABD: [Bowel sounds normal, soft, nontender, no masses, no organomegaly. No audible bruits.] : [Not examined] LYMPH: [No lymphadenopathy noted.] EXT: [No clubbing, cyanosis or edema.] SKIN: [No rashes or lesions noted.] NEURO: [Awake, alert, and oriented x3. No focal sensory or strength deficits noted.] Laboratory: [ ] Hematology Labs: Test 08/23/24 04:24 08/22/24 04:27 Range/Units White Blood Count 8.0 4.8-10.8 K/uL Red Blood Count 2.39 L 4.50-6.20 MIL/uL Hemoglobin 7.7 L 14.0-18.0 g/dL Hematocrit 23.0 L 42-54 % Mean Corpuscular Volume 96.2 79-99 fL Mean Corpuscular Hemoglobin 32.2 27.0-33.0 pg Mean Corpuscular Hemoglobin Concent 33.5 32.0-36.0 g/dL Red Cell Distribution Width 14.8 11.0-15.5 % Platelet Count 287 130-400 K/uL Mean Platelet Volume 11.5 H 7.5-10.5 fL Nucleated Red Blood Cells 0.0 0.0-0.19 % Immature Granulocyte % (Auto) 0.4 0-1 % Neutrophils (%) (Auto) 75.2 40.0-77.0 % Lymphocytes (%) (Auto) 11.4 L 21.0-51.0 % Monocytes (%) (Auto) 7.0 3.0-13.0 % Eosinophils (%) (Auto) 5.1 0.0-8.0 % Basophils (%) (Auto) 0.9 0.0-5.0 % Neutrophils # (Auto) 7.2 1.8-7.7 K/uL Lymphocytes # (Auto) 1.1 1.0-4.8 K/uL Monocytes # (Auto) 0.7 0.1-1.0 K/uL Eosinophils # (Auto) 0.49 0.00-0.70 K/uL Basophils # (Auto) 0.09 0.00-0.20 K/uL Absolute Immature Granulocyte (auto 0.04 0-1 K/uL Chemistry Labs: Test 08/23/24 05:34 08/23/24 04:24 08/22/24 04:27 Range/Units Whole Blood Glucose 100 70-110 MG/DL Sodium Level 139 136-145 mmol/L Potassium Level 3.3 L 3.5-5.1 mmol/L Chloride Level 105 101-111 mmol/L Carbon Dioxide Level 25 21-32 mmol/L Blood Urea Nitrogen 51 H 7-18 mg/dL Creatinine 3.7 H 0.5-1.3 mg/dL Glomerular Filtration Rate Calc 16 >90 mL/min Random Glucose 97 70-105 mg/dL Total Calcium 8.2 L 8.5-10.1 mg/dL Phosphorus Level 3.9 2.5-4.9 mg/dL Magnesium Level 1.70 L 1.80-2.40 mg/dL Total Bilirubin 0.4 # 0.2-1.0 mg/dL Aspartate Amino Transf (AST/SGOT) 27 10-37 U/L Alanine Aminotransferase (ALT/SGPT) 23 12-78 U/L Alkaline Phosphatase 106 50-136 U/L Total Protein 6.0 6.0-8.3 g/dL Albumin 2.2 L 3.5-5.0 g/dL Hemoglobin A1c 5.4 4.0-6.0 % Estimated Average Glucose (eAG) 108 70-126 mg/dL Uric Acid 10.1 H 2.6-7.2 mg/dL Iron Level 18 L 65-175 mcg/dL Total Iron Binding Capacity 116 L 250-450 mcg/dL Percent Iron Saturation 15.5 L 30-44 % Ferritin 1805 H 30-400 ng/mL Triglycerides Level 92 30-200 mg/dL Cholesterol Level 133 <200 mg/dL LDL Cholesterol 73 0-99 mg/dL HDL Cholesterol 45 29-71 mg/dL Thyroid Stimulating Hormone (TSH) 4.02 #H 0.36-3.74 uIU/mL Coagulation Labs: Test 08/22/24 04:27 Range/Units Prothrombin Time 11.3 9.6-11.6 SEC Prothromb Time International Ratio 1.07 0.85-1.15 Activated Partial Thromboplast Time 30.2 26.3-35.5 SEC Diagnostics / Radiology: [Copy/Paste Echos/Imaging Report here] Impression and Plan: Pt may proceed with HD catheter placement from cardiac standpoint, benefits outweight risks. Continue Lasix Supplement electrolytes as indicated Monitor i/o strictly Start iron supplement Continue with current BP management Avoid fluid overload Continue statin Continue thyroid supplement TREVER JUAN NP Aug 23, 2024 06:52
[2024-08-23] MEDS: Vitamin B Complex/Vit C/Folic Acid PO SCH (08:48)
[2024-08-23] MEDS: ASCORBIC ACID 500 MG TAB PO SCH (08:50)
[2024-08-23] MEDS: FERROUS GLUCONATE 324MG TABLET.DR PO SCH (08:55)
--- NOTE | 2024-08-23 14:10 | PN ---
NEPHROLOGY PROGRESS NOTE Date/Time Patient Seen: Aug 23, 2024 SUBJECTIVE: This is an 84-year-old male with a past medical history of hypertension, chronic kidney disease, coronary artery disease, hyperlipidemia, CHF. He presented to the emergency with complaints of shortness of breath. Chest x-ray noted He has been started on diuretics He was noted to have elevated BUN/creatinine We have been consulted for renal failure Renal function remains elevated Electrolytes are noted Renal biopsy to unknown 04/11/2024 showed diffuse diabetic glomerulosclerosis Dr. Ashby has been consulted for PD catheter placement, tentatively scheduled for tomorrow. Patient and family not ready to start hemodialysis at this time He was seen in the medical floor, in no acute distress No family at bedside Prognosis remains guarded REVIEW OF SYSTEMS: GENERAL: Positive for shortness of breath NEUROLOGIC: Negative for any blurry vision, blind spots, double vision, facial asymmetry, dysphagia, dysarthria, hemiparesis, hemisensory deficits, vertigo, ataxia. HEENT: Negative for any head trauma, neck trauma, neck stiffness, photophobia, phonophobia, sinusitis, rhinitis. CARDIAC: Negative for any chest pain, dyspnea on exertion, paroxysmal nocturnal dyspnea, peripheral edema. PULMONARY: Negative for any shortness of breath, wheezing, COPD, or TB exposure. GASTROINTESTINAL: Negative for any abdominal pain, nausea, vomiting, bright red blood per rectum, melena. GENITOURINARY: Negative for any dysuria, hematuria, incontinence. INTEGUMENTARY: Negative for any rashes, cuts, insect bites. RHEUMATOLOGIC: Negative for any joint pains, photosensitive rashes, history of vasculitis or kidney problems. HEMATOLOGIC: Negative for any abnormal bruising, frequent infections or bleeding. Vital Signs (last 8hr) Date Time Temp Pulse Resp B/P (MAP) Pulse Ox O2 Delivery O2 Flow Rate FiO2 08/23/24 12:05 98.1 63 17 131/44 94 Room Air 08/23/24 08:10 98.2 67 17 132/52 97 Room Air 08/23/24 08:00 97 Nasal Cannula* 3 32 PHYSICAL EXAM: GENERAL: Alert and oriented x 3. No acute distress. Well-nourished. EYES: EOMI. Anicteric. HENT: Moist mucous membranes. No scleral icterus. No cervical lymphadenopathy. LUNGS: Clear to auscultation bilaterally. No accessory muscle use. CARDIOVASCULAR: Regular rate and rhythm. No murmur. No JVD. ABDOMEN: Soft, non-tender and non-distended. No palpable masses. EXTREMITIES: No edema. Non-tender.?SKIN: No rashes or lesions. Warm. NEUROLOGIC: No focal neurological deficits. CN II-XII grossly intact, but not individually tested. PSYCHIATRIC: Cooperative. Appropriate mood and affect. Current Medications Medications (Trade) Dose Ordered Sig/Harley Route Start Time Stop Time Status Last Admin Dose Admin Amlodipine Besylate (NorvASC 5MG TAB) 10 mg DAILY PO 08/21/24 09:00 09/20/24 08:59 08/23/24 08:48 10 MG Ascorbic Acid (Vitamin C 500mg Tab) 500 mg DAILY PO 08/23/24 09:00 09/22/24 08:59 08/23/24 08:50 500 MG Aspirin (Aspirin 81mg Chew Tab) 81 mg DAILYDINNER PO 08/21/24 17:00 09/20/24 16:59 08/22/24 17:52 81 MG Atorvastatin Calcium (LIPItor 40MG) 40 mg HS PO 08/21/24 21:00 09/20/24 20:59 08/22/24 20:23 40 MG Ferrous Gluconate (Ferrous Gluconate) 324 mg DAILY PO 08/23/24 09:00 09/22/24 08:59 08/23/24 08:55 324 MG Furosemide (LASix 40MG VIAL) 40 mg Q8H IV 08/21/24 08:00 08/21/24 15:17 DC 08/21/24 09:56 40 MG Furosemide (LASix 40MG VIAL) 80 mg BID IV 08/21/24 15:30 09/20/24 07:59 08/23/24 08:47 80 MG Heparin Sodium (Porcine) (HEParin 5,000 UNIT VIAL) 5,000 unit Q12H SQ 08/21/24 09:00 09/20/24 08:59 Home Med (Home Medication) DAILY PO 08/21/24 09:00 09/20/24 08:59 Hydralazine HCl ([id number] TAB) 25 mg TID PO 08/21/24 09:00 09/20/24 08:59 08/21/24 21:14 25 MG Isosorbide Mononitrate (Imdur 60mg Sr) 60 mg BID PO 08/21/24 09:00 09/20/24 08:59 08/23/24 08:49 60 MG Levothyroxine Sodium (SYNTHroid 25MCG TAB) 25 mcg SYN PO 08/21/24 06:30 09/20/24 06:29 08/23/24 05:44 25 MCG Memantine (NAmenDA 5 MG TAB) 10 mg DAILY PO 08/21/24 09:00 09/20/24 08:59 08/23/24 08:50 10 MG Metoprolol Succinate (TopROL XL) 100 mg DAILY PO 08/21/24 09:00 09/20/24 08:59 08/23/24 08:52 100 MG Pharmacy Profile Note (Pharmacy Communication) 1 each AD MISC 08/21/24 14:30 08/21/24 14:22 DC Vitamin B Complex/ Vit C/Folic Acid (Nephrovite Tablet) 1 cap DAILY PO 08/23/24 09:00 09/22/24 08:59 08/23/24 08:48 1 CAP LABORATORY: [ ] Hematology Labs: Test 08/23/24 04:24 08/22/24 04:27 Range/Units White Blood Count 8.0 4.8-10.8 K/uL Red Blood Count 2.39 L 4.50-6.20 MIL/uL Hemoglobin 7.7 L 14.0-18.0 g/dL Hematocrit 23.0 L 42-54 % Mean Corpuscular Volume 96.2 79-99 fL Mean Corpuscular Hemoglobin 32.2 27.0-33.0 pg Mean Corpuscular Hemoglobin Concent 33.5 32.0-36.0 g/dL Red Cell Distribution Width 14.8 11.0-15.5 % Platelet Count 287 130-400 K/uL Mean Platelet Volume 11.5 H 7.5-10.5 fL Nucleated Red Blood Cells 0.0 0.0-0.19 % Immature Granulocyte % (Auto) 0.4 0-1 % Neutrophils (%) (Auto) 75.2 40.0-77.0 % Lymphocytes (%) (Auto) 11.4 L 21.0-51.0 % Monocytes (%) (Auto) 7.0 3.0-13.0 % Eosinophils (%) (Auto) 5.1 0.0-8.0 % Basophils (%) (Auto) 0.9 0.0-5.0 % Neutrophils # (Auto) 7.2 1.8-7.7 K/uL Lymphocytes # (Auto) 1.1 1.0-4.8 K/uL Monocytes # (Auto) 0.7 0.1-1.0 K/uL Eosinophils # (Auto) 0.49 0.00-0.70 K/uL Basophils # (Auto) 0.09 0.00-0.20 K/uL Absolute Immature Granulocyte (auto 0.04 0-1 K/uL Chemistry Labs: Test 08/23/24 11:22 08/23/24 04:24 08/22/24 04:27 Range/Units Whole Blood Glucose 108 70-110 MG/DL Sodium Level 139 136-145 mmol/L Potassium Level 3.3 L 3.5-5.1 mmol/L Chloride Level 105 101-111 mmol/L Carbon Dioxide Level 25 21-32 mmol/L Blood Urea Nitrogen 51 H 7-18 mg/dL Creatinine 3.7 H 0.5-1.3 mg/dL Glomerular Filtration Rate Calc 16 >90 mL/min Random Glucose 97 70-105 mg/dL Total Calcium 8.2 L 8.5-10.1 mg/dL Phosphorus Level 3.9 2.5-4.9 mg/dL Magnesium Level 1.70 L 1.80-2.40 mg/dL Total Bilirubin 0.4 # 0.2-1.0 mg/dL Aspartate Amino Transf (AST/SGOT) 27 10-37 U/L Alanine Aminotransferase (ALT/SGPT) 23 12-78 U/L Alkaline Phosphatase 106 50-136 U/L Total Protein 6.0 6.0-8.3 g/dL Albumin 2.2 L 3.5-5.0 g/dL Hemoglobin A1c 5.4 4.0-6.0 % Estimated Average Glucose (eAG) 108 70-126 mg/dL Uric Acid 10.1 H 2.6-7.2 mg/dL Iron Level 18 L 65-175 mcg/dL Total Iron Binding Capacity 116 L 250-450 mcg/dL Percent Iron Saturation 15.5 L 30-44 % Ferritin 1805 H 30-400 ng/mL Triglycerides Level 92 30-200 mg/dL Cholesterol Level 133 <200 mg/dL LDL Cholesterol 73 0-99 mg/dL HDL Cholesterol 45 29-71 mg/dL Thyroid Stimulating Hormone (TSH) 4.02 #H 0.36-3.74 uIU/mL Coagulation Labs: Test 08/22/24 04:27 Range/Units Prothrombin Time 11.3 9.6-11.6 SEC Prothromb Time International Ratio 1.07 0.85-1.15 Activated Partial Thromboplast Time 30.2 26.3-35.5 SEC DIAGNOSTICS / RADIOLOGY: REASON: SOB ORDERING PHYSICIAN: NAVIN PRATHER MD PROCEDURE: CXR1VW - CHEST 1VW CHEST 1VW REASON: SOB COMPARISON: 07/30/2024 FINDINGS: Heart size stable. Right lung is clear. There is atelectasis or effusion obscuring the left hemidiaphragm, the effusion is favored. This was present on prior exam as well. Sternotomy is noted IMPRESSION: 1. Infiltrate or effusion obscuring the left hemidiaphragm. 2. Otherwise unremarkable exam. 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 We have reviewed external records in detail Continue with IV diuretics Pending PD catheter placement tomorrow Potassium and magnesium replacement has been ordered Preserve nondominant arm. Continue with a renal diet Require close monitoring of renal function and electrolytes Order CBC, CMP, and electrolytes in am BiPAP as necessary, for respiratory distress Monitor blood pressure adjust medication doses as needed Avoid hypotensive episodes May use Dilaudid 0.5 mg IV every 6 hours as needed for severe pain Monitor blood sugars Strict intake, output, and daily weight should be monitored Please renally adjust medications Avoid nephrotoxic and nonsteroidal drugs Avoid contrast if possible Will continue to monitor renal function, anemia, electrolytes Treatment plan discussed with patient Questions were answered We have discussed with the other team physicians in detail about the care plan We will continue to monitor the patient closely ATTESTATION BY PHYSICIAN I have seen and examined the patient. I reviewed the documentation, medical decision making, and treatment plan as noted by the mid-level provider above. I agree with the findings and plan of care. DARLYN SCHULTE MD, [facility] Aug 23, 2024 14:10
--- NOTE | 2024-08-23 15:24 | PN ---
GENERAL SURGERY PROGRESS NOTE Date/Time Patient Seen: [August 23, 2024 ] Problem List: [ End-stage renal disease] Interval History: [ Patient's respiratory status has improved significantly. 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 He is give me clearance take the patient to the operating room tomorrow to place a peritoneal dialysis catheter laparoscopically. Patient is currently tolerating a diet, denies any discomfort.] Current Medications Medications (Trade) Dose Ordered Sig/Harley Route Start Time Stop Time Status Last Admin Dose Admin Amlodipine Besylate (NorvASC 5MG TAB) 10 mg DAILY PO 08/21/24 09:00 09/20/24 08:59 08/23/24 08:48 10 MG Ascorbic Acid (Vitamin C 500mg Tab) 500 mg DAILY PO 08/23/24 09:00 09/22/24 08:59 08/23/24 08:50 500 MG Aspirin (Aspirin 81mg Chew Tab) 81 mg DAILYDINNER PO 08/21/24 17:00 09/20/24 16:59 08/22/24 17:52 81 MG Atorvastatin Calcium (LIPItor 40MG) 40 mg HS PO 08/21/24 21:00 09/20/24 20:59 08/22/24 20:23 40 MG Ferrous Gluconate (Ferrous Gluconate) 324 mg DAILY PO 08/23/24 09:00 09/22/24 08:59 08/23/24 08:55 324 MG Furosemide (LASix 40MG VIAL) 40 mg Q8H IV 08/21/24 08:00 08/21/24 15:17 DC 08/21/24 09:56 40 MG Furosemide (LASix 40MG VIAL) 80 mg BID IV 08/21/24 15:30 09/20/24 07:59 08/23/24 08:47 80 MG Heparin Sodium (Porcine) (HEParin 5,000 UNIT VIAL) 5,000 unit Q12H SQ 08/21/24 09:00 09/20/24 08:59 Home Med (Home Medication) DAILY PO 08/21/24 09:00 09/20/24 08:59 Hydralazine HCl ([id number] TAB) 25 mg TID PO 08/21/24 09:00 09/20/24 08:59 08/21/24 21:14 25 MG Isosorbide Mononitrate (Imdur 60mg Sr) 60 mg BID PO 08/21/24 09:00 09/20/24 08:59 08/23/24 08:49 60 MG Levothyroxine Sodium (SYNTHroid 25MCG TAB) 25 mcg SYN PO 08/21/24 06:30 09/20/24 06:29 08/23/24 05:44 25 MCG Memantine (NAmenDA 5 MG TAB) 10 mg DAILY PO 08/21/24 09:00 09/20/24 08:59 08/23/24 08:50 10 MG Metoprolol Succinate (TopROL XL) 100 mg DAILY PO 08/21/24 09:00 09/20/24 08:59 08/23/24 08:52 100 MG Pharmacy Profile Note (Pharmacy Communication) 1 each AD MISC 08/21/24 14:30 08/21/24 14:22 DC Vitamin B Complex/ Vit C/Folic Acid (Nephrovite Tablet) 1 cap DAILY PO 08/23/24 09:00 09/22/24 08:59 08/23/24 08:48 1 CAP Physical Examination: Awake, alert, oriented x3 Unlabored Regular rate and rhythm Abdomen soft, nontender, nondistended Vital Signs (last 8hr) Date Time Temp Pulse Resp B/P (MAP) Pulse Ox O2 Delivery O2 Flow Rate FiO2 08/23/24 12:05 98.1 63 17 131/44 94 Room Air 08/23/24 08:10 98.2 67 17 132/52 97 Room Air 08/23/24 08:00 97 Nasal Cannula* 3 32 Laboratory: [ ] Hematology Labs: Test 08/23/24 04:24 08/22/24 04:27 Range/Units White Blood Count 8.0 4.8-10.8 K/uL Red Blood Count 2.39 L 4.50-6.20 MIL/uL Hemoglobin 7.7 L 14.0-18.0 g/dL Hematocrit 23.0 L 42-54 % Mean Corpuscular Volume 96.2 79-99 fL Mean Corpuscular Hemoglobin 32.2 27.0-33.0 pg Mean Corpuscular Hemoglobin Concent 33.5 32.0-36.0 g/dL Red Cell Distribution Width 14.8 11.0-15.5 % Platelet Count 287 130-400 K/uL Mean Platelet Volume 11.5 H 7.5-10.5 fL Nucleated Red Blood Cells 0.0 0.0-0.19 % Immature Granulocyte % (Auto) 0.4 0-1 % Neutrophils (%) (Auto) 75.2 40.0-77.0 % Lymphocytes (%) (Auto) 11.4 L 21.0-51.0 % Monocytes (%) (Auto) 7.0 3.0-13.0 % Eosinophils (%) (Auto) 5.1 0.0-8.0 % Basophils (%) (Auto) 0.9 0.0-5.0 % Neutrophils # (Auto) 7.2 1.8-7.7 K/uL Lymphocytes # (Auto) 1.1 1.0-4.8 K/uL Monocytes # (Auto) 0.7 0.1-1.0 K/uL Eosinophils # (Auto) 0.49 0.00-0.70 K/uL Basophils # (Auto) 0.09 0.00-0.20 K/uL Absolute Immature Granulocyte (auto 0.04 0-1 K/uL Chemistry Labs: Test 08/23/24 11:22 08/23/24 04:24 08/22/24 04:27 Range/Units Whole Blood Glucose 108 70-110 MG/DL Sodium Level 139 136-145 mmol/L Potassium Level 3.3 L 3.5-5.1 mmol/L Chloride Level 105 101-111 mmol/L Carbon Dioxide Level 25 21-32 mmol/L Blood Urea Nitrogen 51 H 7-18 mg/dL Creatinine 3.7 H 0.5-1.3 mg/dL Glomerular Filtration Rate Calc 16 >90 mL/min Random Glucose 97 70-105 mg/dL Total Calcium 8.2 L 8.5-10.1 mg/dL Phosphorus Level 3.9 2.5-4.9 mg/dL Magnesium Level 1.70 L 1.80-2.40 mg/dL Total Bilirubin 0.4 # 0.2-1.0 mg/dL Aspartate Amino Transf (AST/SGOT) 27 10-37 U/L Alanine Aminotransferase (ALT/SGPT) 23 12-78 U/L Alkaline Phosphatase 106 50-136 U/L Total Protein 6.0 6.0-8.3 g/dL Albumin 2.2 L 3.5-5.0 g/dL Hemoglobin A1c 5.4 4.0-6.0 % Estimated Average Glucose (eAG) 108 70-126 mg/dL Uric Acid 10.1 H 2.6-7.2 mg/dL Iron Level 18 L 65-175 mcg/dL Total Iron Binding Capacity 116 L 250-450 mcg/dL Percent Iron Saturation 15.5 L 30-44 % Ferritin 1805 H 30-400 ng/mL Triglycerides Level 92 30-200 mg/dL Cholesterol Level 133 <200 mg/dL LDL Cholesterol 73 0-99 mg/dL HDL Cholesterol 45 29-71 mg/dL Thyroid Stimulating Hormone (TSH) 4.02 #H 0.36-3.74 uIU/mL Coagulation Labs: Test 08/22/24 04:27 Range/Units Prothrombin Time 11.3 9.6-11.6 SEC Prothromb Time International Ratio 1.07 0.85-1.15 Activated Partial Thromboplast Time 30.2 26.3-35.5 SEC Diagnostics / Radiology: [Copy/Paste Echos/Imaging Report here] Impression and Plan: [Patient with end-stage renal disease needing dialysis. Patient has elected to undergo peritoneal dialysis. A plan to place a laparoscopic peritoneal dialysis catheter tomorrow. Risks associated with the procedure not limited to infection, bleeding, injury to surrounding structures has been discussed with the patient and his family and they indicate they understand and would like to proceed. ] NAEL MENDEZ MD Aug 23, 2024 15:24
[2024-08-23] MEDS: MAGNESIUM 2GM PREMIX 50ML 50 ML IV PRN (18:34)
[2024-08-23] MEDS ORDERED: PoTASSium chl 10% ELIXIR 20MEQ 20 MEQ/15 ML UDCUP PO PRN (19:00)
[2024-08-23] MEDS ORDERED: PoTASSium chloRIDE 10MEQ/100ML 100 ML IV PRN (19:00)
[2024-08-23] MEDS: PoTASSium chloRIDE 20MEQ ER 20 MEQ ERTAB PO PRN (19:21)
--- NOTE | 2024-08-23 22:15 | PN ---
SUBJECTIVE: The patient is pending placement of peritoneal dialysis catheter tomorrow. He is still in bed With toxin. No fever or chills. No chest pain. No nausea or vomiting. OBJECTIVE: GENERAL: Currently awake, alert, and oriented to person and place. VITAL SIGNS: Blood pressure 132/52, pulse 67, respiratory rate 17. HEENT: Normocephalic, atraumatic. LUNGS: Decreased breath sounds on both bases with inspiratory withdrawal. HEART: S1, S2 are distant. ABDOMEN: Soft and nontender. LABORATORY DATA: WBC count 8, hemoglobin 7.7, platelets 287. Sodium 139, potassium 3.3, BUN 51, creatinine 3.7, albumin 2.2. Chest x-ray was reported with infiltrate or effusion obscuring the left hemidiaphragm. ASSESSMENT AND PLAN: * Respiratory failure. Continue with oxygen. * Pulmonary congestion. Continue recommendation by Cardiology. * End-stage renal disease. The patient is scheduled to have peritoneal dialysis catheter placement or Permacath placement tomorrow. * Coronary artery disease, stable. * Aortic valve regurgitation. Continue recommendation by Cardiology. * Hypertension. Continue current treatment. * Anemia. Continue to monitor. Transfuse on a p.r.n. basis. DOS: 06/2024 TID: [id number] RECEIPT: [id number] MTDMeir
[2024-08-24] VITALS (26 sets, daily range): BP systolic 109–141; BP diastolic 38–55; PULSE 59–91; RESP 17–20; TEMP 97.5–98.5; O2SAT 92–94
[2024-08-24 04:58] LABS: BASOPHILS # (AUTO) 0.08 K/uL (0.00-0.20); BASOPHILS % (AUTO) 0.9 % (0.0-5.0); EOSINOPHILS # (AUTO) 0.41 K/uL (0.00-0.70); EOSINOPHILS % (AUTO) 4.8 % (0.0-8.0); HEMATOCRIT 26.4 % (42-54); IMMATURE GRANULOCYTE ABSOLUTE 0.03 K/uL (0-1); LYMPHOCYTES # (AUTO) 0.8 K/uL (1.0-4.8); LYMPHOCYTES % (AUTO) 9.8 % (21.0-51.0); MEAN CORPUSCULAR HEMOGLOBIN 31.4 pg (27.0-33.0); MEAN CORPUSCULAR HGB CONC 32.2 g/dL (32.0-36.0); MEAN CORPUSCULAR VOLUME 97.4 fL (79-99); MONOCYTES # (AUTO) 0.8 K/uL (0.1-1.0); MONOCYTES % (AUTO) 8.7 % (3.0-13.0); NEUTROPHILS # (AUTO) 6.5 K/uL (1.8-7.7); NEUTROPHILS % (AUTO) 75.5 % (40.0-77.0); PLATELET COUNT (AUTO) 310 K/uL (130-400); RED BLOOD CELL COUNT(AUTO) 2.71 MIL/uL (4.50-6.20); RED CELL DISTRIBUTION WIDTH 14.6 % (11.0-15.5); WHITE BLOOD COUNT (AUTO) 8.6 K/uL (4.8-10.8)
[2024-08-24 05:07] LABS: ALBUMIN 2.4 g/dL (3.5-5.0); BILIRUBIN,TOTAL 0.4 mg/dL (0.2-1.0); CREATININE 3.9 mg/dL (0.5-1.3); MAGNESIUM 2.2 mg/dL (1.80-2.40); POTASSIUM 3.9 mmol/L (3.5-5.1); TOTAL PROTEIN, SERUM 6.6 g/dL (6.0-8.3)
--- NOTE | 2024-08-24 06:36 | PN ---
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 Pending PD catheter placement. No events overnight. Pt has no fever or chills. He has no overt bleeding. He has no chest pain, shortness of breath with exertion is present but he is not exerting much. 08/23/24 Pt evaluated in his room, still pending intervention for PD catheter, was offered HD per nephrology but they are not interested at this time in that modality for renal replacement. Pt is with drifting Hgb. No overt bleeding. Iron supplement started. He denies any overnight chest pain, sob is exertional. He still has difficulty lying down at night. Pt continues on lasix, edema improving. 08/24/24 Pt pending laprascopic placement of PD catheter today. CXR pending in follow up preop. Edema is improved, and sob improved compared to a couple of days ago after diuresis. Pt npo since MN. Denies chest pain, dizziness, chest pressure. Poor sleep last night, he is mildly anxious as is family. Physical Examination: GENERAL: [No acute distress, pallor noted.] HEAD: [Normal with no signs of head trauma.] EYES: [PERRLA, EOMI, conjunctiva pale and sclera normal.] ENT: [Hearing grossly intact, normal oropharynx.] NECK: [Supple without JVD. There is no tenderness, lymphadenopathy, or masses. No thyromegaly. Normal carotid upstrokes without bruits.] LUNGS: [Clear breath sounds bilaterally, diminished bases. HEART: [Normal rate and rhythm. Normal S1 and S2 with systolic murmur, gallop or rub.] VASC: [Peripheral pulses +2 bilaterally.] ABD: [Bowel sounds normal, soft, nontender, no masses, no organomegaly. No audible bruits.] : [Not examined] LYMPH: [No lymphadenopathy noted.] EXT: [No clubbing, cyanosis or edema.] SKIN: [No rashes or lesions noted.] NEURO: [Awake, alert, and oriented x3. No focal sensory or strength deficits noted.] Laboratory: [ ] Hematology Labs: Test 08/24/24 04:25 Range/Units White Blood Count 8.6 4.8-10.8 K/uL Red Blood Count 2.71 L 4.50-6.20 MIL/uL Hemoglobin 8.5 L 14.0-18.0 g/dL Hematocrit 26.4 L 42-54 % Mean Corpuscular Volume 97.4 79-99 fL Mean Corpuscular Hemoglobin 31.4 27.0-33.0 pg Mean Corpuscular Hemoglobin Concent 32.2 32.0-36.0 g/dL Red Cell Distribution Width 14.6 11.0-15.5 % Platelet Count 310 130-400 K/uL Mean Platelet Volume 11.8 H 7.5-10.5 fL Immature Granulocyte % (Auto) 0.3 0-1 % Neutrophils (%) (Auto) 75.5 40.0-77.0 % Lymphocytes (%) (Auto) 9.8 L 21.0-51.0 % Monocytes (%) (Auto) 8.7 3.0-13.0 % Eosinophils (%) (Auto) 4.8 0.0-8.0 % Basophils (%) (Auto) 0.9 0.0-5.0 % Neutrophils # (Auto) 6.5 1.8-7.7 K/uL Lymphocytes # (Auto) 0.8 L 1.0-4.8 K/uL Monocytes # (Auto) 0.8 0.1-1.0 K/uL Eosinophils # (Auto) 0.41 0.00-0.70 K/uL Basophils # (Auto) 0.08 0.00-0.20 K/uL Absolute Immature Granulocyte (auto 0.03 0-1 K/uL Nucleated Red Blood Cells 0.0 0.0-0.19 % White Cell Morphology Comment See comments Chemistry Labs: Test 08/24/24 05:07 08/24/24 04:25 08/23/24 04:24 Range/Units Whole Blood Glucose 114 H 70-110 MG/DL Sodium Level 141 136-145 mmol/L Potassium Level 3.9 3.5-5.1 mmol/L Chloride Level 105 101-111 mmol/L Carbon Dioxide Level 26 21-32 mmol/L Blood Urea Nitrogen 52 H 7-18 mg/dL Creatinine 3.9 H 0.5-1.3 mg/dL Glomerular Filtration Rate Calc 15 >90 mL/min Random Glucose 103 70-105 mg/dL Total Calcium 8.5 8.5-10.1 mg/dL Magnesium Level 2.20 1.80-2.40 mg/dL Total Bilirubin 0.4 0.2-1.0 mg/dL Aspartate Amino Transf (AST/SGOT) 37 10-37 U/L Alanine Aminotransferase (ALT/SGPT) 31 12-78 U/L Alkaline Phosphatase 126 50-136 U/L Total Protein 6.6 6.0-8.3 g/dL Albumin 2.4 L 3.5-5.0 g/dL Phosphorus Level 3.9 2.5-4.9 mg/dL Diagnostics / Radiology: [Copy/Paste Echos/Imaging Report here] Impression and Plan: Pt may proceed with HD catheter placement from cardiac standpoint, benefits outweigh risks. Continue Lasix Supplement electrolytes as indicated Monitor i/o strictly Start iron supplement Continue with current BP management Avoid fluid overload Continue statin Continue thyroid supplement Follow up CXR today TREVER JUAN NP Aug 24, 2024 06:36
--- NOTE | 2024-08-24 08:46 | HMCIMG ---
Exam Type: CHEST 1VW Clinical Information: eval for sob Comparison: None Findings: Pulmonary pattern is as before. No worrisome interval changes have taken place. Impression: Stable exam.
[2024-08-24] MEDS ORDERED: LIDOCAINE PF 100MG/5ML (2%) SYRINGE 5ML ONE (14:43)
[2024-08-24] MEDS ORDERED: proPOFol 10 MG/ML 20ML VIAL IV ONE (14:44)
[2024-08-24] MEDS ORDERED: ketaMINE 50MG/ML SYRINGE 50 MG/ML DISP.SYRIN ONE (14:44)
[2024-08-24] MEDS ORDERED: rocuRONium bROMide 10MG/1ML 5ML VL ONE (14:44)
[2024-08-24] MEDS: ceFAZolin SODIUM 1 GM VIAL ONE (14:55)
--- NOTE | 2024-08-24 15:02 | PN ---
NEPHROLOGY PROGRESS NOTE Date/Time Patient Seen: Aug 24, 2024 SUBJECTIVE: This is an 84-year-old male with a past medical history of hypertension, chronic kidney disease, coronary artery disease, hyperlipidemia, CHF. He presented to the emergency with complaints of shortness of breath. Chest x-ray noted He has been started on diuretics He was noted to have elevated BUN/creatinine We have been consulted for renal failure Renal function electrolytes are stable. Renal biopsy to unknown 04/11/2024 showed diffuse diabetic glomerulosclerosis Dr. Ashby has been consulted for PD catheter placement, tentatively scheduled for later today Patient and family not ready to start hemodialysis at this time He was seen in the medical floor, in no acute distress No family at bedside Prognosis remains guarded REVIEW OF SYSTEMS: GENERAL: Positive for shortness of breath NEUROLOGIC: Negative for any blurry vision, blind spots, double vision, facial asymmetry, dysphagia, dysarthria, hemiparesis, hemisensory deficits, vertigo, ataxia. HEENT: Negative for any head trauma, neck trauma, neck stiffness, photophobia, phonophobia, sinusitis, rhinitis. CARDIAC: Negative for any chest pain, dyspnea on exertion, paroxysmal nocturnal dyspnea, peripheral edema. PULMONARY: Negative for any shortness of breath, wheezing, COPD, or TB exposure. GASTROINTESTINAL: Negative for any abdominal pain, nausea, vomiting, bright red blood per rectum, melena. GENITOURINARY: Negative for any dysuria, hematuria, incontinence. INTEGUMENTARY: Negative for any rashes, cuts, insect bites. RHEUMATOLOGIC: Negative for any joint pains, photosensitive rashes, history of vasculitis or kidney problems. HEMATOLOGIC: Negative for any abnormal bruising, frequent infections or bleeding. Vital Signs (last 8hr) Date Time Temp Pulse Resp B/P (MAP) Pulse Ox O2 Delivery O2 Flow Rate FiO2 08/24/24 12:10 97.5 60 17 137/53 94 Nasal Cannula 3.0 08/24/24 08:15 98.4 68 17 130/49 94 Nasal Cannula 3.0 PHYSICAL EXAM: GENERAL: Alert and oriented x 3. No acute distress. Well-nourished. EYES: EOMI. Anicteric. HENT: Moist mucous membranes. No scleral icterus. No cervical lymphadenopathy. LUNGS: Clear to auscultation bilaterally. No accessory muscle use. CARDIOVASCULAR: Regular rate and rhythm. No murmur. No JVD. ABDOMEN: Soft, non-tender and non-distended. No palpable masses. EXTREMITIES: No edema. Non-tender. SKIN: No rashes or lesions. Warm. NEUROLOGIC: No focal neurological deficits. CN II-XII grossly intact, but not individually tested. PSYCHIATRIC: Cooperative. Appropriate mood and affect. Current Medications Medications (Trade) Dose Ordered Sig/Harley Route Start Time Stop Time Status Last Admin Dose Admin Amlodipine Besylate (NorvASC 5MG TAB) 10 mg DAILY PO 08/21/24 09:00 09/20/24 08:59 08/23/24 08:48 10 MG Ascorbic Acid (Vitamin C 500mg Tab) 500 mg DAILY PO 08/23/24 09:00 09/22/24 08:59 08/23/24 08:50 500 MG Aspirin (Aspirin 81mg Chew Tab) 81 mg DAILYDINNER PO 08/21/24 17:00 09/20/24 16:59 08/22/24 17:52 81 MG Atorvastatin Calcium (LIPItor 40MG) 40 mg HS PO 08/21/24 21:00 09/20/24 20:59 08/22/24 20:23 40 MG Ferrous Gluconate (Ferrous Gluconate) 324 mg DAILY PO 08/23/24 09:00 09/22/24 08:59 08/23/24 08:55 324 MG Furosemide (LASix 40MG VIAL) 40 mg Q8H IV 08/21/24 08:00 08/21/24 15:17 DC 08/21/24 09:56 40 MG Furosemide (LASix 40MG VIAL) 80 mg BID IV 08/21/24 15:30 09/20/24 07:59 08/23/24 08:47 80 MG Heparin Sodium (Porcine) (HEParin 5,000 UNIT VIAL) 5,000 unit Q12H SQ 08/21/24 09:00 09/20/24 08:59 Home Med (Home Medication) DAILY PO 08/21/24 09:00 09/20/24 08:59 Hydralazine HCl ([id number] TAB) 25 mg TID PO 08/21/24 09:00 09/20/24 08:59 08/21/24 21:14 25 MG Isosorbide Mononitrate (Imdur 60mg Sr) 60 mg BID PO 08/21/24 09:00 09/20/24 08:59 08/23/24 08:49 60 MG Levothyroxine Sodium (SYNTHroid 25MCG TAB) 25 mcg SYN PO 08/21/24 06:30 09/20/24 06:29 08/23/24 05:44 25 MCG Memantine (NAmenDA 5 MG TAB) 10 mg DAILY PO 08/21/24 09:00 09/20/24 08:59 08/23/24 08:50 10 MG Metoprolol Succinate (TopROL XL) 100 mg DAILY PO 08/21/24 09:00 09/20/24 08:59 08/23/24 08:52 100 MG Pharmacy Profile Note (Pharmacy Communication) 1 each AD MISC 08/21/24 14:30 08/21/24 14:22 DC Vitamin B Complex/ Vit C/Folic Acid (Nephrovite Tablet) 1 cap DAILY PO 08/23/24 09:00 09/22/24 08:59 08/23/24 08:48 1 CAP LABORATORY: [ ] Hematology Labs: Test 08/24/24 04:25 Range/Units White Blood Count 8.6 4.8-10.8 K/uL Red Blood Count 2.71 L 4.50-6.20 MIL/uL Hemoglobin 8.5 L 14.0-18.0 g/dL Hematocrit 26.4 L 42-54 % Mean Corpuscular Volume 97.4 79-99 fL Mean Corpuscular Hemoglobin 31.4 27.0-33.0 pg Mean Corpuscular Hemoglobin Concent 32.2 32.0-36.0 g/dL Red Cell Distribution Width 14.6 11.0-15.5 % Platelet Count 310 130-400 K/uL Mean Platelet Volume 11.8 H 7.5-10.5 fL Immature Granulocyte % (Auto) 0.3 0-1 % Neutrophils (%) (Auto) 75.5 40.0-77.0 % Lymphocytes (%) (Auto) 9.8 L 21.0-51.0 % Monocytes (%) (Auto) 8.7 3.0-13.0 % Eosinophils (%) (Auto) 4.8 0.0-8.0 % Basophils (%) (Auto) 0.9 0.0-5.0 % Neutrophils # (Auto) 6.5 1.8-7.7 K/uL Lymphocytes # (Auto) 0.8 L 1.0-4.8 K/uL Monocytes # (Auto) 0.8 0.1-1.0 K/uL Eosinophils # (Auto) 0.41 0.00-0.70 K/uL Basophils # (Auto) 0.08 0.00-0.20 K/uL Absolute Immature Granulocyte (auto 0.03 0-1 K/uL Nucleated Red Blood Cells 0.0 0.0-0.19 % White Cell Morphology Comment See comments Chemistry Labs: Test 08/24/24 11:32 08/24/24 04:25 08/23/24 04:24 Range/Units Whole Blood Glucose 113 H 70-110 MG/DL Sodium Level 141 136-145 mmol/L Potassium Level 3.9 3.5-5.1 mmol/L Chloride Level 105 101-111 mmol/L Carbon Dioxide Level 26 21-32 mmol/L Blood Urea Nitrogen 52 H 7-18 mg/dL Creatinine 3.9 H 0.5-1.3 mg/dL Glomerular Filtration Rate Calc 15 >90 mL/min Random Glucose 103 70-105 mg/dL Total Calcium 8.5 8.5-10.1 mg/dL Magnesium Level 2.20 1.80-2.40 mg/dL Total Bilirubin 0.4 0.2-1.0 mg/dL Aspartate Amino Transf (AST/SGOT) 37 10-37 U/L Alanine Aminotransferase (ALT/SGPT) 31 12-78 U/L Alkaline Phosphatase 126 50-136 U/L Total Protein 6.6 6.0-8.3 g/dL Albumin 2.4 L 3.5-5.0 g/dL Phosphorus Level 3.9 2.5-4.9 mg/dL DIAGNOSTICS / RADIOLOGY: REASON: eval for sob ORDERING PHYSICIAN: TREVER JUAN NP PROCEDURE: CXR1VW - CHEST 1VW Exam Type: CHEST 1VW Clinical Information: eval for sob Comparison: None Findings: Pulmonary pattern is as before. No worrisome interval changes have taken place. Impression: Stable exam. DICTATED BY: ROSE MARISCAL MD DATE: 08/24/24 0844 REASON: SOB ORDERING PHYSICIAN: NAVIN PRATHER MD PROCEDURE: CXR1VW - CHEST 1VW CHEST 1VW REASON: SOB COMPARISON: 07/30/2024 FINDINGS: Heart size stable. Right lung is clear. There is atelectasis or effusion obscuring the left hemidiaphragm, the effusion is favored. This was present on prior exam as well. Sternotomy is noted IMPRESSION: 1. Infiltrate or effusion obscuring the left hemidiaphragm. 2. Otherwise unremarkable exam. 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 We have reviewed external records in detail Continue with IV diuretics Pending PD catheter placement later today Potassium and magnesium replacement has been ordered Preserve nondominant arm. Continue with a renal diet Require close monitoring of renal function and electrolytes Order CBC, CMP, and electrolytes in am BiPAP as necessary, for respiratory distress Monitor blood pressure adjust medication doses as needed Avoid hypotensive episodes May use Dilaudid 0.5 mg IV every 6 hours as needed for severe pain Monitor blood sugars Strict intake, output, and daily weight should be monitored Please renally adjust medications Avoid nephrotoxic and nonsteroidal drugs Avoid contrast if possible Will continue to monitor renal function, anemia, electrolytes Treatment plan discussed with patient Questions were answered We have discussed with the other team physicians in detail about the care plan We will continue to monitor the patient closely ATTESTATION BY PHYSICIAN I have seen and examined the patient. I reviewed the documentation, medical decision making, and treatment plan as noted by the mid-level provider above. I agree with the findings and plan of care. DARLYN SCHULTE MD, [facility] Aug 24, 2024 15:02
[2024-08-24] MEDS ORDERED: ePHEDrine SULFate 50 MG/ML AMPULE ONE (15:05)
[2024-08-24] MEDS: BUPIvacaine HCL/EPINEPHrine/PF 0.25% 10ML VIAL IJ ONE (15:08)
--- NOTE | 2024-08-24 15:42 | OP ---
Operative Note: DATE OF PROCEDURE: 08/24/24 SURGEON: NAEL MENDEZ MD [facility] CHIEF: [Nic Domingo CFA] ANESTHESIA: [General endotracheal anesthesia] ANESTHESIOLOGIST/INSTITUTIONAL AIDE: [[facility] anesthesia team] PREOPERATIVE DIAGNOSIS: [End-stage renal disease] POSTOPERATIVE DIAGNOSIS: [Same] SYNOPSIS: [Patient with end-stage renal disease requesting peritoneal dialysis Laparoscopic peritoneal dialysis catheter insertion Good position of catheter Catheter flushes and aspirates well All sponges and instruments were accounted for at the end the case Patient tolerated the procedure well, there no complications] PROCEDURE: [Laparoscopic peritoneal dialysis catheter insertion] ESTIMATED BLOOD LOSS: [Less than 10 cc] INDICATIONS: [Patient with end-stage renal disease requesting peritoneal dialysis] DESCRIPTION OF PROCEDURE: [On day of surgery patient was brought operating room. Positioned in supine position. Preoperative antibiotics were given. Bilateral SCDs were placed. Patient was intubated. Patient then prepped and draped the usual fashion. Local anesthetic was instilled into the right upper quadrant. 5 mm trocars inserted under direct vision after making skin incision. Abdomen was insufflated 15 mmHg. No injury to omentum and bowel was noted. Then a 5 mm port was placed in the right lateral abdomen. Then a incision was made in the infraumbilical position. Needle was placed. Wire was placed. A dilator was placed over the wire. Then the peritoneal dialysis cath was advanced into the abdominal cavity. It was then tunneled in the subcutaneous space to its an incision in the left upper quadrant then a swan-neck turn was made on the catheter and the catheter was advanced to a second incision in the left lateral anterior abdomen. The catheter was then flushed and aspirated. It flushed and aspirated well. Then a retention suture was placed in the low pelvis to attach the catheter to the anterior abdominal wall. Then all insufflation gas removed. Ports were removed. The skin incision was closed in subcu fashion and properly dressed. Patient was woken up, transferred to a [facility] taken to recovery to recover. All sponges and instruments were accounted for at the end of the case. Patient tolerated procedure well, there were no complications.] NAEL MENDEZ MD Aug 24, 2024 15:42
[2024-08-24] MEDS: SUGAMMADEX SODIUM 200 MG/2 ML VIAL IV ONE (17:14)
[2024-08-24] MEDS ORDERED: morPHINE 2 MG SYG IVP PRN (18:00)
[2024-08-24 18:18] LABS: % IRON SATURATION 21.2 % (30-44)
[2024-08-24 18:36] LABS: HIV 1&2 ANTIBODY Non-Reactive (Negative)
[2024-08-24 18:37] LABS: HIV-1 p24 Antigen Non-Reactive (Negative)
[2024-08-24 19:44] LABS: ALBUMIN 2.4 g/dL (3.5-5.0)
[2024-08-24] MEDS: acetaMINOPHEN 500 MG TABLET PO PRN (20:10)
[2024-08-24] MEDS: LACTULOSE 20 GM/30 ML UDCUP PO PRN (20:19)
[2024-08-25] VITALS (8 sets, daily range): BP systolic 127–148; BP diastolic 48–60; PULSE 62–73; RESP 16–20; TEMP 97.6–98.4; O2SAT 97
--- NOTE | 2024-08-25 04:15 | PN ---
SUBJECTIVE: The patient is scheduled to have peritoneal dialysis catheter placed today. OBJECTIVE: GENERAL: He is currently comfortable in bed with oxygen 2 liters nasal cannula, not in distress. VITAL SIGNS: In the chart. HEENT: Normocephalic, atraumatic. LUNGS: Clear to auscultation. HEART: S1, S2 are distant. ABDOMEN: Soft, nontender. LABORATORY DATA: WBC count 8.6, hemoglobin 8.5, platelets 310. Sodium 141, potassium 3.9, BUN 52, creatinine of 3.9, albumin 2.4. ASSESSMENT AND PLAN: * Respiratory failure. Continue with current oxygen rate. * End-stage renal disease. The patient is going to be started on peritoneal dialysis once catheter is placed. * Volume overload. Continue recommendation by Cardiology and Nephrology. * Hypertension, controlled. * Dyslipidemia, controlled. * Type 2 diabetes. Continue current treatment. * Aortic valve regurgitation. Continue recommendation by Cardiology. * Congestive heart failure, diastolic. Continue recommendations by Cardiology. * Coronary artery disease, status post CABG. Continue current treatment. TID: [id number] RECEIPT: [id number]
[2024-08-25 04:58] LABS: HEMATOCRIT 26.8 % (42-54); MEAN CORPUSCULAR HEMOGLOBIN 31.8 pg (27.0-33.0); MEAN CORPUSCULAR HGB CONC 31.3 g/dL (32.0-36.0); MEAN CORPUSCULAR VOLUME 101.5 fL (79-99); RED BLOOD CELL COUNT(AUTO) 2.64 MIL/uL (4.50-6.20); RED CELL DISTRIBUTION WIDTH 14.5 % (11.0-15.5); WHITE BLOOD COUNT (AUTO) 10.4 K/uL (4.8-10.8)
[2024-08-25 05:22] LABS: ALBUMIN 2.4 g/dL (3.5-5.0); BILIRUBIN,TOTAL 0.4 mg/dL (0.2-1.0); CREATININE 3.8 mg/dL (0.5-1.3); MAGNESIUM 2.1 mg/dL (1.80-2.40); PHOSPHORUS 4.1 mg/dL (2.5-4.9); POTASSIUM 3.9 mmol/L (3.5-5.1); TOTAL PROTEIN, SERUM 6.9 g/dL (6.0-8.3)
--- NOTE | 2024-08-25 08:32 | PN ---
INDICATIONS: * [id number] diastolic congestive heart failure and volume overload. * Acute on chronic kidney disease, stage V, nearing endstage. * Hypertension. * Hyperlipoproteinemia. 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 * Hypothyroidism, on supplement. * History of renal artery duplex in 06/2024, demonstrating less than 60% stenotic lesion in the left renal artery. * History of coronary artery disease with remote coronary artery bypass graft surgery x 3 with a ULRICH to the LAD, saphenous vein graft to the OM, and saphenous vein graft to the PDA with concomitant bioprosthetic aortic valve replacement by Dr. Sima Champagne in 07/2015. * Cardiac catheterization in 09/2023, documenting severe [place] three-vessel coronary artery disease with no significant bioprosthetic stenosis with a patent ULRICH to the LAD, patent saphenous vein graft to the PDA, and diseased saphenous vein graft to the OM, medical management recommended at that time. * Normal Lexiscan Cardiolite, with no evidence of ischemic changes in 07/2024. 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 * Echocardiography in June, revealing an EF of 50-55% with moderate bioprosthetic aortic regurgitation with pressure ____ 277 meters per second with a mean gradient of 23 mm across the valve. * History of recent admission for CHF in 07/2024. * Iron deficiency anemia. * Status post placement of a peritoneal dialysis catheter. This patient has been hospitalized once more because of volume overload. He had been reluctant to consider dialysis in the past. His evaluation by the Cardiology team at this time was to evaluate his surgical perioperative risk. The patient was felt to be stable to undergo the surgical procedure, which he has tolerated well. On evaluating the patient this morning, he denies any complaints and states that he feels okay. His vital signs have been stable. His blood pressure has been in the 125-135 systolic range. His heart rate is in the 60 per minute range. Respiratory rate is 17-18. The patient is afebrile. He is saturating at 94% on nasal cannula. The patient has no jugular venous distention. He has bilateral basilar rales with decreased air entry at the left base and done this to percussion. The cardiac exam is remarkable for a soft systolic ejection murmur. The abdomen is remarkable for no acute findings and the patient has an indwelling catheter. The extremities are without edema at this point. Laboratory studies this morning revealed a white count of 10.4, with an H and H of 8.4 and 26.8 respectively. The current platelet count is 306,000. Chemistries have revealed a sodium of 141, potassium of 3.9, chloride is 105, CO2 of 27, BUN is 56, creatinine is 3.8 with a GFR of 15. The patient's hemoglobin A1c is 5.4. Uric acid is high at 10.1. Iron is low at 23, iron binding capacity is 108 and the percent saturation is 21.2, all consistent with anemia of chronic disease. The ferritin is elevated at 1892. The patient's liver enzymes are fairly benign. The BNP is 1950. The patient's TSH is 4.02. The intact PTH is 158.2. In trending the patient's GFR, it has remained between 12 and 15 all along in the last number of evaluations. The patient is currently maintained on Nephro-Mandeep, vitamin C, iron supplement, atorvastatin, baby aspirin, furosemide, memantine, hydralazine, amlodipine, metoprolol, isosorbide, levothyroxine, and p.r.n. medications. PLAN: At this point, the patient will be maintained on the current regimen from the cardiac standpoint. It is clear that he will require volume management given the fact that he has persistent volume overload. Moreover, the patient has physical exam highly consistent with a left pleural effusion and evidence of volume overload. The chest x-ray obtained yesterday, showed no acute or revolutionary changes. TID: [id number] RECEIPT: [id number]
[2024-08-25 11:16] LABS: HEPATITIS B CORE AB TOTAL Non-Reactive (Nonreactive); HEPATITIS B SURFACE ANTIBODY Negative (Reactive); HEPATITIS B SURFACE ANTIGEN Non-Reactive (Nonreactive); HEPATITIS C ANTIBODY Non-Reactive (Nonreactive)
--- NOTE | 2024-08-25 15:25 | NUR ---
PER DR SCHULTE; NOT TO REMOVE DRESSING TO PD CATHETER. TO LEAVE DRESSING IN PLACE AND NOT CHANGE UNTIL PD CATHTER IS USED TO AVOID POTENTIAL INFECTION
--- NOTE | 2024-08-25 15:45 | NUR ---
Discharge Update: [place] [facility] [place] her [place] a [place] for [place]. Referral sent, both via e-mail and fax. Pending appt.
--- NOTE | 2024-08-25 20:20 | PN ---
SUBJECTIVE: The patient had a peritoneal dialysis catheter in place yesterday. He is comfortable, not in distress. Having no fever or chills. No seizures. No chest pain or palpitations. Continue with oxygen through nasal cannula. Currently awake, alert, oriented in person and place. OBJECTIVE: VITAL SIGNS: Blood pressure 136/54, pulse 67, respirations 18. HEENT: Normocephalic, atraumatic. LUNGS: Decreased breath sounds on both bases with inspiratory withdrawals. HEART: S1, S2 are distant. ABDOMEN: Catheter in place. EXTREMITIES: No clubbing or cyanosis. 1+ pitting edema bilaterally. LABORATORY DATA: WBC count 10.4, hemoglobin 8.4, platelets 306, sodium 141, potassium 3.9, BUN 56, creatinine 3.8, albumin 2.4. ASSESSMENT AND PLAN: * Respiratory failure. Continue with oxygen. * End-stage renal disease. The patient with a peritoneal dialysis catheter in place. Continue recommendation by Nephrology. * Hypertension, controlled. * Dyslipidemia, controlled. * Type 2 diabetes. Continue current treatment. * Aortic valve replacement with regurgitation. Continue recommendation by Cardiology. * Diastolic congestive heart failure. Continue recommendation by Cardiology. * Coronary artery disease, status post CABG, stable. * Pending ____ dialysis. TID: [id number] RECEIPT: [id number]
--- NOTE | 2024-08-25 22:33 | PN ---
NEPHROLOGY NOTE SUBJECTIVE: The patient has renal failure and anemia. The patient has fluid overload, CHF, and underlying history of aortic valve disease. The patient has a PD catheter placed. The patient has significant anemia. The patient remains fluid overloaded. Family has been offered hemodialysis before. They were declining but now agreeing. He is being considered for initiation of dialysis when suitable. The patient does have underlying diastolic heart failure. The patient has hypertension, hyperlipidemia, diabetes with diabetic nephropathy by kidney biopsy, hypothyroidism, coronary artery disease, previous CABG, aortic valve replacement, bioprosthetic aortic regurgitation, and now PD catheter placement. No other associated finding. No other aggravating or relieving factor. REVIEW OF SYSTEMS: CONSTITUTIONAL: No fevers, chills, or rigors. HEENT: No headache, oral ulcer, sore throat, or difficulty swallowing. RESPIRATORY: No cough, expectoration, hemoptysis, or pleuritic pain. CARDIOVASCULAR: Has shortness of breath and some orthopnea. No PND. GASTROINTESTINAL: Negative for nausea, vomiting, or diarrhea. GENITOURINARY: Negative for dysuria or hematuria. DERMATOLOGICAL: No rashes or pruritus. ENDOCRINE: No polyuria, polydipsia, or polyphagia. PHYSICAL EXAMINATION: GENERAL: Pale, no other distress. VITAL SIGNS: Blood pressure is 132/50, pulse 64, respiratory rate is 16. HEENT: Head is atraumatic, normocephalic. Pupils are round and reactive. Sclerae are anicteric. Conjunctivae not pale. Oral mucosa is not dry. NECK: Supple. No masses or bruits. Thyroid is palpable. CHEST: Shows equal thoracic percussion note being resonant in all areas. CARDIAC: Regular rhythm. No rub. No S3 or S4. No parasymphyseal heave. ABDOMEN: No guarding or tenderness. Bowel sounds are normoactive. No free fluid. BACK: No back tenderness or back deformities. NEUROLOGIC: Unchanged. LABORATORY DATA: Labs have been reviewed. Hepatitis studies are negative. Other serologies are negative. The patient's hemoglobin is 8.4. Creatinine is 3.8 and BUN of ____. PROBLEMS: * Advanced renal failure, already end stage with fluid overload. The patient has underlying diabetic nephropathy by kidney biopsy. * Coronary artery disease and CABG. * Cardiomyopathy. * Hypothyroidism. * Hyperlipidemia. * Recurrent fluid overload and CHF. PLAN: * PD catheter has been placed. * Continued with diuretics and adjust according to his symptoms and weight. * The patient will have a dialysis initiated through PermCath if the patient agrees or PD catheter has been placed and will need education on that and flushing later or continuing with supportive care. Intake, output, weight, and overall status will be monitored. The patient will have pleural effusion monitored. Fluid restriction is advised. Nonsteroidal drugs to be avoided. Dose of medicine to be adjusted. IV Dilaudid 0.5 q. 6 can be used for pain. We have discussed with other team physicians. We have reviewed the external records, old records, continued followup and overall status remain guarded. The patient was seen several times today. I have discussed with other team physicians, axle inspector, and surgical team in detail. Seen several times today. Thank you for this patient. TID: [id number] RECEIPT: [id number]
[2024-08-26 03:54] VITALS: BP 149/58; PULSE 77; RESP 20; TEMP 98.5
[2024-08-26 04:53] LABS: HEMATOCRIT 24.7 % (42-54); MEAN CORPUSCULAR VOLUME 96.9 fL (79-99); PLATELET COUNT (AUTO) 324 K/uL (130-400); RED BLOOD CELL COUNT(AUTO) 2.55 MIL/uL (4.50-6.20); RED CELL DISTRIBUTION WIDTH 14.8 % (11.0-15.5); WHITE BLOOD COUNT (AUTO) 8.8 K/uL (4.8-10.8)
[2024-08-26 05:09] LABS: ALBUMIN 2.3 g/dL (3.5-5.0); BILIRUBIN,TOTAL 0.4 mg/dL (0.2-1.0); CREATININE 3.5 mg/dL (0.5-1.3); POTASSIUM 3.5 mmol/L (3.5-5.1); TOTAL PROTEIN, SERUM 6.6 g/dL (6.0-8.3)
[2024-08-26 05:25] LABS: INR 1.08 (0.85-1.15); PROTHROMBIN TIME 11.4 SEC (9.6-11.6)
[2024-08-26 05:26] LABS: PARTIAL THROMBOPLASTIN TIME 31.3 SEC (26.3-35.5)
[2024-08-26 05:57] LABS: BAND NEUTROPHILS % (MANUAL) 1 % (0-2); BASOPHILS % (MANUAL) 1 % (0-2); EOSINOPHILS % (MANUAL) 4 % (1-6); LYMPHOCYTES % (MANUAL) 14 % (22-44); MONOCYTES % (MANUAL) 3 % (2-9); REACTIVE LYMPHOCYTES 2 % (0-0); SEGMENTED NEUTROPHILS % 75 % (40-70); TOTAL CELLS COUNTED 100
[2024-08-26 06:03] LABS: MAN.DIFF COMMENT-IMPRESSION MANUAL DIFFERENTIAL; PLATELET MORPHOLOGY COMMENT ADEQUATE; WBC MORPHOLOGY REACTIVE LYMPHS 1+
[2024-08-26 08:00] VITALS: BP 141/51; PULSE 77; RESP 17; TEMP 98; O2SAT 95
--- NOTE | 2024-08-26 09:36 | PN ---
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 Champagne July 2015, follow-up cardiac catheteri zation September 2023 demonstrated severe CAD with a patent ULRICH to the LAD and patent saphenous vein graft to the PDA. There was a diseased saphenous vein graft to the OM which was managed medically. He had a follow-up Lexiscan Cardiolite stress test 08/02/2024 which was normal and a 2D echocardiogram on 07/01/2024 demonstrated an LVEF of 50-55% , history of bradycardia, and chronic diastolic congestive heart failure presented to the hospital on this occasion with progressive dyspnea, nonproductive cough and lower extremity edema x1 week. He had a BUN of 52 and creatinine of 3.7 with estimated GFR of 16 and had chest x-ray evidence of pulmonary vascular congestion and left effusion. He underwent insertion of a peritoneal hemodialysis catheter on 08/24/2024 without any postoperative complications. He has now pending a PermCath insertion on Wednesday with plans to initiate hemodialysis and peritoneal dialysis at a later time. He offers no complaints of orthopnea or PND or chest pain today. He has had a poor appetite. Telemetry has demonstrated a normal sinus rhythm with a heart rate of 66 beats per minute. Otherwise no acute events overnight. Physical Examination: GENERAL: Thin, elderly male, No acute distress. HEAD: Normal with no signs of head trauma. EYES: PERRLA, EOMI, conjunctiva and sclera normal. NECK: Supple without JVD. There is no tenderness, lymphadenopathy, or masses. No thyromegaly. Normal carotid upstrokes without bruits. LUNGS: There are diminished breath sounds and transmitted breath sounds at the left base snf up the chest. HEART: Normal rate and rhythm. Normal S1 and S2 there is a 2/6 early peaking systolic ejection murmur at the right upper sternal border, no diastolic murmur audible. ABD: There is a peritoneal dialysis catheter to the left lower quadrant and abdomen is soft, bowel sounds present VASC: Peripheral pulses +2 bilaterally. EXT: No clubbing, cyanosis or edema. NEURO: Awake, alert, and oriented x3. No focal neurological deficits noted. Laboratory: Hematology Labs: Test 08/26/24 04:19 Range/Units White Blood Count 8.8 4.8-10.8 K/uL Red Blood Count 2.55 L 4.50-6.20 MIL/uL Hemoglobin 7.9 L 14.0-18.0 g/dL Hematocrit 24.7 L 42-54 % Mean Corpuscular Volume 96.9 79-99 fL Mean Corpuscular Hemoglobin 31.0 27.0-33.0 pg Mean Corpuscular Hemoglobin Concent 32.0 32.0-36.0 g/dL Red Cell Distribution Width 14.8 11.0-15.5 % Platelet Count 324 130-400 K/uL Mean Platelet Volume 11.9 H 7.5-10.5 fL Segmented Neutrophils % 75 H 40-70 % Band Neutrophils % 1 0-2 % Lymphocytes % (Manual) 14 L 22-44 % Monocytes % (Manual) 3 2-9 % Eosinophils % (Manual) 4 1-6 % Basophils % (Manual) 1 0-2 % Nucleated Red Blood Cells 0.0 0.0-0.19 % Differential Comment MANUAL DIFFERENTIAL Reactive Lymphocytes 2 H 0-0 % White Cell Morphology Comment REACTIVE LYMPHS 1+ Platelet Morphology Comment ADEQUATE Red Blood Cell Morphology See comments Chemistry Labs: Test 08/26/24 05:15 08/26/24 04:19 08/25/24 04:35 08/24/24 18:45 Range/Units Whole Blood Glucose 94 70-110 MG/DL Sodium Level 140 136-145 mmol/L Potassium Level 3.5 3.5-5.1 mmol/L Chloride Level 105 101-111 mmol/L Carbon Dioxide Level 27 21-32 mmol/L Blood Urea Nitrogen 54 H 7-18 mg/dL Creatinine 3.5 H 0.5-1.3 mg/dL Glomerular Filtration Rate Calc 17 >90 mL/min Random Glucose 94 70-105 mg/dL Total Calcium 8.7 8.5-10.1 mg/dL Phosphorus Level 4.0 2.5-4.9 mg/dL Total Bilirubin 0.4 0.2-1.0 mg/dL Aspartate Amino Transf (AST/SGOT) 39 H 10-37 U/L Alanine Aminotransferase (ALT/SGPT) 23 # 12-78 U/L Alkaline Phosphatase 130 50-136 U/L Total Protein 6.6 6.0-8.3 g/dL Albumin 2.3 L 3.5-5.0 g/dL Magnesium Level 2.10 1.80-2.40 mg/dL Ferritin 1892 H 30-400 ng/mL Coagulation Labs: Test 08/26/24 04:19 Range/Units Prothrombin Time 11.4 9.6-11.6 SEC Prothromb Time International Ratio 1.08 0.85-1.15 Activated Partial Thromboplast Time 31.3 26.3-35.5 SEC Diagnostics / Radiology: 2D echocardiogram 07/01/2024: The left ventricle is normal in structure and function. The Ejection Fraction is 50-55%. Bioprosthetic aortic valve is present and displays normal functioning. Peak v elocity 2.8 m/s across the valve with a mean gradient of 23 mmHg. Moderate aortic regurgitation. PHT is 277 ms. This was previously evaluated by transesophageal echocardiogram in March of 2024 with concordant findings of moderate AR. No pericardial effusion. Impression and Plan: Acute on chronic diastolic congestive heart failure: Volume overload: -the patient has now accepted initiation of hemodialysis -status post peritoneal dialysis catheter 08/24/2024 -plans are to proceed with dialysis catheter placement on Wednesday for initiation of hemodialysis -continue furosemide 80 mg IV b.i.d. as he has been getting Stage V chronic kidney disease: -plans are to proceed with hemodialysis on this admission and transitioned to peritoneal dialysis on discharge -status post peritoneal dialysis catheter insertion 08/24/2024 -continue management per Nephrology Hypertension: -continue current therapy with metoprolol succinate ER 100 mg daily, amlodipine 10 mg daily, hydralazine 25 mg p.o. t.i.d. Comorbidities: Coronary artery disease with remote coronary artery bypass graft surgery x 3 with a ULRICH to the LAD, saphenous vein graft to the OM, and saphenous vein graft to the PDA with concomitant bioprosthetic aortic valve replacement by Dr. Sima Champagne in 07/2015 Follow up cardiac catheterization in 09/2023, documenting severe [place] three- vessel coronary artery disease with no significant bioprosthetic stenosis with a patent ULRICH to the LAD, patent saphenous vein graft to the PDA, and diseased saphenous vein graft to the OM, managed medically Normal Lexiscan Cardiolite, with no evidence of ischemic changes 08/02/2024 Hyperlipidemia Type 2 diabetes mellitus with renal and circulatory manifestations Hypothyroidism on supplements Less than 60% left renal artery stenosis by renal artery Doppler exam 06/2024 Normal LVEF of 50-55% with moderate aortic regurgitation on 2D echocardiogram 07/01/2024 with pressure half-time of 277ms and mean gradient of 23 mmHg Chronic anemia, iron deficiency anemia PHYSICIAN ATTESTATION OF PHYSICIAN PROCESS CHEESE COOKER DOCUMENTATION: I attest that I was physically present for the wise portions of the service and evaluated the patient with the Physician Women'S Soccer Coach, and I reviewed and discussed the case with the Physician Women'S Soccer Coach and made modifications to the Physician Women'S Soccer Coach's findings and plans of care as documented above SHREE MAN Aug 26, 2024 09:36 JOI LACY MD Aug 27, 2024 15:17
[2024-08-26 12:00] VITALS: BP 139/59; PULSE 72; RESP 18; TEMP 97.9
[2024-08-26 16:00] VITALS: BP 145/41; PULSE 73; RESP 16; TEMP 97.8
--- NOTE | 2024-08-26 16:09 | PN ---
FOLLOWUP PROGRESS NOTE SUBJECTIVE: An 84-year-old male with a longstanding history of diabetes mellitus and hypertension. He has a history of known cardiomyopathy. The patient with a history of valvular heart disease. He has a history of chronic renal insufficiency, not on dialysis. The patient now is wishing to proceed with dialysis. The patient with uremic complaints including poor intake and generalized fatigue and he is being seen as a followup visit for all of the above. REVIEW OF SYSTEMS: CONSTITUTIONAL: The patient is feeling weak and tired. HEENT: No change in vision. No change in hearing. CARDIOVASCULAR: There is no current chest pain or palpitations. PULMONARY: No shortness of breath. GASTROINTESTINAL: Appetite is poor. MUSCULOSKELETAL: Complaints of weakness. PHYSICAL EXAMINATION: VITAL SIGNS: Blood pressure is 141/51, pulse in the 70s, afebrile. GENERAL: He is a chronically ill male, lying in bed on medical floor. HEENT: Head is atraumatic. Pupils are equal, roving to light. Oropharynx is without exudate. Nares clear. NECK: There is no JVP. There is no thyromegaly. No masses. CARDIOVASCULAR: Regular. There is no S3 or S4 gallop. LUNGS: Coarse with equal thoracic movement. ABDOMEN: Soft, nondistended, and nontender. EXTREMITIES: Reveal no clubbing, no cyanosis. NEUROLOGICAL: He is awake. He is alert. LABORATORY DATA: Hemoglobin 10.9, hematocrit 24, white blood cell count 8000. BUN 54, creatinine is 3.5. IMPRESSION: * Advanced renal dysfunction. * Diabetes mellitus. * Hypertension. * Anemia. PLAN: The patient with advanced renal dysfunction. The patient is now wishing to proceed with dialysis. We have Interventional Radiology place a PermCath on 08/28/2024 in anticipation of the dialysis. We will continue to follow closely. He can continue with the Lasix for now and will follow while in the hospital. The patient with multiple questions, all of which were answered. TID: [id number] RECEIPT: [id number]
[2024-08-26 20:00] VITALS: BP 161/48; PULSE 75; RESP 16; TEMP 98.2; O2SAT 98
[2024-08-27] VITALS (9 sets, daily range): BP systolic 136–185; BP diastolic 44–58; PULSE 61–88; RESP 18–20; TEMP 97.5–99.2; O2SAT 97–98
--- NOTE | 2024-08-27 00:30 | NUR ---
htn paged dr. booth to his office about patient's high blood pressure. pending call back.
[2024-08-27] MEDS: hydrALAZine 20MG/ML VIAL IM ONE (00:57)
--- NOTE | 2024-08-27 11:20 | PN ---
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 Champagne July 2015, follow-up cardiac catheteri zation September 2023 demonstrated severe CAD with a patent ULRICH to the LAD and patent saphenous vein graft to the PDA. There was a diseased saphenous vein graft to the OM which was managed medically. He had a follow-up Lexiscan Cardiolite stress test 08/02/2024 which was normal and a 2D echocardiogram on 07/01/2024 demonstrated an LVEF of 50-55% , history of bradycardia, and chronic diastolic congestive heart failure presented to the hospital on this occasion with progressive dyspnea, nonproductive cough and lower extremity edema x1 week. He had a BUN of 52 and creatinine of 3.7 with estimated GFR of 16 and had chest x-ray evidence of pulmonary vascular congestion and left effusion. He underwent insertion of a peritoneal hemodialysis catheter on 08/24/2024 without any postoperative complications. He has now pending a PermCath insertion on Wednesday with plans to initiate hemodialysis and peritoneal dialysis at a later time. He offers no complaints of orthopnea or PND or chest pain today. Blood pressure has been elevated despite his multidrug therapy. Telemetry has demonstrated a normal sinus rhythm with a heart rate of 64-66 beats per minute. Otherwise no acute events overnight. Physical Examination: GENERAL: Thin, elderly male, No acute distress. HEAD: Normal with no signs of head trauma. EYES: PERRLA, EOMI, conjunctiva and sclera normal. NECK: Supple without JVD. There is no tenderness, lymphadenopathy, or masses. No thyromegaly. Normal carotid upstrokes without bruits. LUNGS: There are diminished breath sounds and transmitted breath sounds at the left base fdc up the chest. HEART: Normal rate and rhythm. Normal S1 and S2 there is a 2/6 early peaking systolic ejection murmur at the right upper sternal border, no diastolic murmur audible. ABD: There is a peritoneal dialysis catheter to the left lower quadrant and a bdomen is soft, bowel sounds present VASC: Peripheral pulses +2 bilaterally. EXT: No clubbing, cyanosis or edema. NEURO: Awake, alert, and oriented x3. No focal neurological deficits noted. Laboratory: Hematology Labs: Test 08/26/24 04:19 Range/Units White Blood Count 8.8 4.8-10.8 K/uL Red Blood Count 2.55 L 4.50-6.20 MIL/uL Hemoglobin 7.9 L 14.0-18.0 g/dL Hematocrit 24.7 L 42-54 % Mean Corpuscular Volume 96.9 79-99 fL Mean Corpuscular Hemoglobin 31.0 27.0-33.0 pg Mean Corpuscular Hemoglobin Concent 32.0 32.0-36.0 g/dL Red Cell Distribution Width 14.8 11.0-15.5 % Platelet Count 324 130-400 K/uL Mean Platelet Volume 11.9 H 7.5-10.5 fL Segmented Neutrophils % 75 H 40-70 % Band Neutrophils % 1 0-2 % Lymphocytes % (Manual) 14 L 22-44 % Monocytes % (Manual) 3 2-9 % Eosinophils % (Manual) 4 1-6 % Basophils % (Manual) 1 0-2 % Nucleated Red Blood Cells 0.0 0.0-0.19 % Differential Comment MANUAL DIFFERENTIAL Reactive Lymphocytes 2 H 0-0 % White Cell Morphology Comment REACTIVE LYMPHS 1+ Platelet Morphology Comment ADEQUATE Red Blood Cell Morphology See comments Chemistry Labs: Test 08/26/24 05:15 08/26/24 04:19 Range/Units Whole Blood Glucose 94 70-110 MG/DL Sodium Level 140 136-145 mmol/L Potassium Level 3.5 3.5-5.1 mmol/L Chloride Level 105 101-111 mmol/L Carbon Dioxide Level 27 21-32 mmol/L Blood Urea Nitrogen 54 H 7-18 mg/dL Creatinine 3.5 H 0.5-1.3 mg/dL Glomerular Filtration Rate Calc 17 >90 mL/min Random Glucose 94 70-105 mg/dL Total Calcium 8.7 8.5-10.1 mg/dL Phosphorus Level 4.0 2.5-4.9 mg/dL Total Bilirubin 0.4 0.2-1.0 mg/dL Aspartate Amino Transf (AST/SGOT) 39 H 10-37 U/L Alanine Aminotransferase (ALT/SGPT) 23 # 12-78 U/L Alkaline Phosphatase 130 50-136 U/L Total Protein 6.6 6.0-8.3 g/dL Albumin 2.3 L 3.5-5.0 g/dL Coagulation Labs: Test 08/26/24 04:19 Range/Units Prothrombin Time 11.4 9.6-11.6 SEC Prothromb Time International Ratio 1.08 0.85-1.15 Activated Partial Thromboplast Time 31.3 26.3-35.5 SEC Diagnostics / Radiology: 2D echocardiogram 07/01/2024: The left ventricle is normal in structure and function. The Ejection Fraction is 50-55%. Bioprosthetic aortic valve is present and displays normal functioning. Peak velocity 2.8 m/s across the valve with a mean gradient of 23 mmHg. Moderate aortic regurgitation. PHT is 277 ms. This was previously evaluated by transesophageal echocardiogram in March of 2024 with concordant findings of moderate AR. No pericardial effusion. Impression and Plan: Acute on chronic diastolic congestive heart failure: Volume overload: -the patient has now accepted initiation of hemodialysis -status post peritoneal dialysis catheter 08/24/2024 -plans are to proceed with dialysis catheter placement on Wednesday for initiation of hemodialysis -continue furosemide 80 mg IV b.i.d. as he has been getting Stage V chronic kidney disease: -plans are to proceed with hemodialysis on this admission and transitioned to peritoneal dialysis on discharge -status post peritoneal dialysis catheter insertion 08/24/2024 -continue management per Nephrology Hypertension: -continue current therapy with metoprolol succinate ER 100 mg daily, amlodipine 10 mg daily -hydralazine has been advanced to 50 mg p.o. t.i.d. today -consider the addition of doxazosin to his medical regimen Comorbidities: Coronary artery disease with remote coronary artery bypass graft surgery x 3 with a ULRICH to the LAD, saphenous vein graft to the OM, and saphenous vein graft to the PDA with concomitant bioprosthetic aortic valve replacement by Dr. Sima Champagne in 07/2015 Follow up cardiac catheterization in 09/2023, documenting severe [place] three- vessel coronary artery disease with no significant bioprosthetic stenosis with a patent ULRICH to the LAD, patent saphenous vein graft to the PDA, and diseased saphenous vein graft to the OM, managed medically Normal Lexiscan Cardiolite, with no evidence of ischemic changes 08/02/2024 Hyperlipidemia Type 2 diabetes mellitus with renal and circulatory manifestations Hypothyroidism on supplements Less than 60% left renal artery stenosis by renal artery Doppler exam 06/2024 Normal LVEF of 50-55% with moderate aortic regurgitation on 2D echocardiogram 07/01/2024 with pressure half-time of 277ms and mean gradient of 23 mmHg Chronic anemia, iron deficiency anemia PHYSICIAN ATTESTATION OF PHYSICIAN ENTRY LEVEL ACCOUNT REPRESENTATIVE DOCUMENTATION: I attest that I was physically present for the wise portions of the service and evaluated the patient with the Physician Dental Technician Metal, and I reviewed and discussed the case with the Physician Dental Technician Metal and made modifications to the Physician Dental Technician Metal's findings and plans of care as documented above SHREE MAN Aug 27, 2024 11:20 JOI LACY MD Aug 27, 2024 15:17
[2024-08-27] MEDS: hydrALAZine 25MG TABLET PO SCH (12:26)
--- NOTE | 2024-08-27 19:50 | PN ---
FOLLOWUP PROGRESS NOTE SUBJECTIVE: The patient is an 84-year-old male with a history of diabetes mellitus and hypertension. He has a history of known chronic renal insufficiency. The patient is now complaining of significant uremia. The patient has agreed to proceed with dialysis. The patient is scheduled for a PermCath in the a.m. and he is being seen as a followup visit for all of the above. REVIEW OF SYSTEMS: CONSTITUTIONAL: He is feeling weak and tired. HEENT: No change in vision. No change in hearing. CARDIOVASCULAR: There is no current chest pain or palpitations. PULMONARY: There is no shortness of breath. GASTROINTESTINAL: Appetite is poor. MUSCULOSKELETAL: Complaints of weakness. PHYSICAL EXAMINATION or OBJECTIVE: VITAL SIGNS: Blood pressure is 154/44, pulse in the 80s. Afebrile. GENERAL: He is a chronically ill male, elderly, lying in bed on the medical floor. HEENT: Head is atraumatic. Pupils are equal, roving to light. Oropharynx is without exudate. Nares are clear. NECK: There is no JVP. There is no thyromegaly. No masses. CARDIOVASCULAR: Regular. There is no S3 or S4 gallop. LUNGS: Coarse with equal thoracic movement. ABDOMEN: Soft, nondistended, and nontender. EXTREMITIES: No clubbing, no cyanosis. NEUROLOGICAL: He is awake. He is alert. LABORATORY DATA: Sodium 140, potassium 3.5, BUN 54, creatinine 3.5, hemoglobin 7.9, hematocrit 24. IMPRESSION: * Advanced renal dysfunction. * Uremia. * Diabetes mellitus. * Hypertension. * Anemia. PLAN: The patient with end-stage renal disease, the patient now has agreed to proceed with dialysis. We will have Interventional Radiology place a PermCath in the a.m. in anticipation for his outpatient dialysis. The patient has a peritoneal dialysis catheter in place. We will continue to follow closely. All of his labs will be repeated in the a.m. Blood pressure is under adequate control. The patient can continue with Procrit for the anemia. The patient with multiple questions, all of which were answered. TID: [id number] RECEIPT: [id number]
--- NOTE | 2024-08-27 20:03 | PN ---
SUBJECTIVE: The patient is comfortable, afebrile, scheduled to have Permacath placement on Wednesday, today is Wednesday so that he can be started on hemodialysis. There has been no fever or chills. No chest pain or palpitations. No cough, wheezing, or rhonchi. No nausea, vomiting, or diarrhea. PHYSICAL EXAMINATION: GENERAL: He is currently awake, alert, and oriented in person, time, and place, not in distress. VITAL SIGNS: Blood pressure 141/51, respiratory rate is 17, pulse is 77. HEENT: Normocephalic, atraumatic. [place] and moist oral mucosa. NECK: Supple. LUNGS: Decreased breath sounds bilaterally with inspiratory wet rales at the bases. HEART: S1, S2 are distant. ABDOMEN: Soft, nontender. No masses. EXTREMITIES: No clubbing, cyanosis, or edema. LABORATORY DATA: WBC count 8.8, hemoglobin 7.9, platelets 324. Sodium 140, potassium 3.5, BUN 54, creatinine 3.5, GFR 17, albumin 2.3. ASSESSMENT AND PLAN: * Volume overload. Continue with diuretics as per Cardiology. * End-stage renal disease. The patient has peritoneal dialysis in place and Permacath will be placed to start hemodialysis. * Respiratory failure. Continue with oxygen. * Pulmonary congestion. Continue recommendations by Cardiology. * Aortic valve replacement with aortic regurgitation. Continue recommendation by Cardiology. * Type 2 diabetes, controlled. * Hypertension, fairly controlled. * Congestive heart failure, diastolic. Continue current treatment. * Coronary artery disease, status post CABG. Continue current treatment. * Follow up in a.m. with labs. TID: [id number] RECEIPT: [id number]
[2024-08-27] MEDS ORDERED: DOXAZOSIN MESYLATE 2 MG TABLET PO SCH (21:00)
--- NOTE | 2024-08-27 23:48 | PN ---
SUBJECTIVE: The patient had an episode of hypertension overnight and medications were given. His blood pressure continues to be above 150. Otherwise, he is pending tomorrow to have the PermaCath placement to initiate hemodialysis. OBJECTIVE: GENERAL: He is currently comfortable in bed, not in distress, with oxygen 2 liters via nasal cannula. HEENT: Normocephalic, atraumatic. PERRLA. [place] and moist oral mucosa. NECK: Supple. No jugular venous dilation. No carotid bruit, no goiter. LUNGS: Clear to auscultation anteriorly, posterior decreased breath sounds on both bases. HEART: S1, S2 are distant. ABDOMEN: Soft, nontender. EXTREMITIES: No clubbing or cyanosis. LABORATORY DATA: WBC count 8.8, hemoglobin 7.9, platelets 324. Sodium 140, potassium 3.5, BUN 54, creatinine 3.5, albumin 2.3. Total bilirubin 0.4. ASSESSMENT AND PLAN: * Respiratory failure. Continue with oxygen 2 liters via nasal cannula. * Pulmonary congestion. Continue current medication, pending hemodialysis and peritoneal dialysis. * Chronic kidney disease. Continue recommendation by Nephrology. The patient's GFR calculated is 17. CO2 is 27. * Anemia, chronic and stable, secondary to chronic kidney disease. Continue current approach. * Coronary artery disease, stable. * Aortic valve replacement with regurgitation. Continue recommendation by Cardiology. * Hypertension. We are going to increase hydralazine to 50 t.i.d. from 25 t.i.d. Continue other medications. Follow up in a.m. results of test. * Type 2 diabetes. Continue current medications. TID: [id number] RECEIPT: [id number]
[2024-08-28] VITALS (24 sets, daily range): BP systolic 136–165; BP diastolic 41–65; PULSE 64–90; RESP 16–24; TEMP 97.3–98.6; O2SAT 96–98
[2024-08-28 05:01] LABS: BASOPHILS # (AUTO) 0.09 K/uL (0.00-0.20); BASOPHILS % (AUTO) 0.9 % (0.0-5.0); EOSINOPHILS # (AUTO) 0.31 K/uL (0.00-0.70); EOSINOPHILS % (AUTO) 3.2 % (0.0-8.0); HEMATOCRIT 25.9 % (42-54); IMMATURE GRANULOCYTE ABSOLUTE 0.11 K/uL (0-1); LYMPHOCYTES # (AUTO) 0.9 K/uL (1.0-4.8); LYMPHOCYTES % (AUTO) 9.3 % (21.0-51.0); MEAN CORPUSCULAR HGB CONC 31.3 g/dL (32.0-36.0); MEAN CORPUSCULAR VOLUME 99.2 fL (79-99); MONOCYTES # (AUTO) 0.7 K/uL (0.1-1.0); MONOCYTES % (AUTO) 7.5 % (3.0-13.0); NEUTROPHILS # (AUTO) 7.6 K/uL (1.8-7.7); PLATELET COUNT (AUTO) 296 K/uL (130-400); RED BLOOD CELL COUNT(AUTO) 2.61 MIL/uL (4.50-6.20); RED CELL DISTRIBUTION WIDTH 14.7 % (11.0-15.5); WHITE BLOOD COUNT (AUTO) 9.8 K/uL (4.8-10.8)
[2024-08-28 05:14] LABS: INR 1.05 (0.85-1.15); PROTHROMBIN TIME 11.1 SEC (9.6-11.6)
[2024-08-28 05:16] LABS: PARTIAL THROMBOPLASTIN TIME 30.1 SEC (26.3-35.5)
[2024-08-28 05:35] LABS: CREATININE 3.5 mg/dL (0.5-1.3); PHOSPHORUS 4.2 mg/dL (2.5-4.9); POTASSIUM 3.4 mmol/L (3.5-5.1)
--- NOTE | 2024-08-28 08:08 | PN ---
PROBLEM LIST: * Eabuv-yp-lfnskch diastolic congestive heart failure and volume overload. * Chronic kidney disease, at end stage, dialysis being initiated. * Status post dialysis catheter peritoneal device placement on 08/24/2024, pending central venous dialysis catheter insertion today. * Coronary artery disease with remote coronary artery bypass graft surgery x 3 with ULRICH to the LAD, saphenous vein graft to the OM and saphenous vein graft to the PDA with concomitant bioprosthetic aortic valve replacement by Dr. Francisco Champagne in 07/2015. * Cardiac catheterization in 09/2023 documenting severe wiyot three-vessel coronary artery disease with no significant bioprosthetic stenosis with patent ULRICH to the LAD, patent saphenous vein graft to the PDA, and severely diseased saphenous vein graft to the OM, managed medically. * Negative Lexiscan Cardiolite for any ischemic changes in 07/2024. * Hyperlipoproteinemia. 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 * Hypothyroidism, on supplement. * Nonobstructive left renal artery stenosis by renal duplex in 06/2024. * Preserved LV systolic function with moderate aortic regurgitation by 2D echocardiography in 06/2024 with a pressure half time of 277 milliseconds and a mean gradient of 23 mmHg. * Chronic anemia, likely multifactorial. * Octogenarian. The patient was hospitalized predominantly because of shortness of breath and volume overload. He had recent hospitalization for similar findings. The patient was initially noted to have significant volume overload and we had discussed dialysis at that time; however, he had refused; however, on this occasion, the patient states that he is in agreement. He underwent a peritoneal dialysis catheter placement. He is scheduled today to undergo a central line dialysis catheter placement. Over the past 24 hours, the patient has been stable. His vital signs have been stable. His blood pressure has been in the 140-150 systolic range. He is saturating 96% to 99% on 3 liters of nasal cannula. He has remained afebrile with a heart rate of 65-70. The patient's medications include hydralazine, Nephro-Mandeep, vitamin C, ferrous gluconate, atorvastatin, baby aspirin, furosemide, memantine, amlodipine, metoprolol, isosorbide, levothyroxine, and p.r.n. medications. The patient's laboratory parameters this morning revealed a white count of 9.8 with a H and H of 8.1 and 25.9 respectively. These numbers have been stable. Platelet count is 296,000. The chemistries have revealed a sodium of 142, potassium 3.4 being addressed by Nephrology. Chloride is 105, CO2 is 30, BUN is 64, and creatinine is 3.5 with a GFR of 17. Random glucose is 131 and a calcium of 8.3 and phosphorus is 4.2. The patient's albumin is low at 2.3 and his total protein is also low at 6.6. The liver enzymes are essentially normal. From the cardiac standpoint, we will continue the current management. I think the patient's volume overload is likely due to his renal insufficiency and his diastolic dysfunction. I am confident the patient's overall status will improve once dialysis has been initiated. TID: [id number] RECEIPT: [id number]
[2024-08-28] MEDS ORDERED: HEParin 1,000 UNIT VIAL ONE (09:51)
[2024-08-28] MEDS ORDERED: MIDAZOLAM HCL 1 MG/ML 2ML VIAL ONE (10:02)
[2024-08-28] MEDS ORDERED: FENTanyl CITRate PF 50 MCG/1 ML 2ML VIAL ONE (10:02)
--- NOTE | 2024-08-28 10:47 | PRN ---
TUNNELED DIALYSIS CATHETER PLACEMENT: INDICATION: ESRD. TUNNELED DIALYSIS CATHETER PLACEMENT: LEGAL TECHNICIAN: Dr. Chapa TECHNIQUE: Informed consent was obtained after explaining the procedure and potential complications to the patient. Patient was placed supine on the angiographic table. Timeout performed. All elements of maximal sterile barrier technique, including hand hygiene, sterile gown, gloves and mask were utilized. Right side of the neck and chest were prepped and draped in sterile fashion. Local anesthesia was applied. Under ultrasound and fluoroscopic guidance, access was gained into the right internal jugular vein with a 21G needle. Over a wire, a peel-away sheath was deployed leaving its tip in the superior vena cava. Local anesthesia applied to skin and subcutaneous tissues in the anterior and superior chest wall. Skin marisol made and a tunneling device was utilized to advance cm BioFlo Duramax catheter through the subcutaneous tissues and into the venotomy site. The catheter advanced through the sheath, which was peeled away. Catheter was heparin locked and secured to the skin with a suture. Sterile dressing applied. * Fluoro: Time min. * Blood loss: < 5 mL * Complications: None. IMPRESSION: Successful placement of tunneled dialysis catheter, distal tip positioned in in right atrium. The catheter is ready for immediate use. DIONNE CHAPA DO Aug 28, 2024 10:47
--- NOTE | 2024-08-28 10:51 | HMCIMG ---
TUNNELED DIALYSIS CATHETER PLACEMENT: INDICATION: ESRD. TUNNELED DIALYSIS CATHETER PLACEMENT: LINK FABRIC MACHINE OPERATOR: Dr. Chapa TECHNIQUE: Informed consent was obtained after explaining the procedure and potential complications to the patient. The patient was placed supine on the angiographic table and the right side of the neck and chest were prepped and draped in sterile fashion. Local anesthesia was applied. Utilizing ultrasound and fluoroscopic guidance, access was gained into the right internal jugular vein with a 21G needle. Over a wire, a peel-away sheath was deployed leaving its tip in the superior vena cava. Attention was then turned into creating a subcutaneous tunnel and local anesthesia applied in the skin and subcutaneous tissues overlying the anterior aspect of the right third rib. Skin marisol was performed and a tunneling device was utilized to [id number] cm BioFlo Duramax dialysis catheter through the subcutaneous tissues and into the venotomy site. The catheter advanced down the sheath leaving its tip in the right atrium. The sheath was then peeled away. The catheter ports were aspirated and then flushed with heparin. The catheter was secured to the skin with 2-0 Ethilon suture. Sterile dressing applied. The patient tolerated the procedure well and was discharged from the department in good condition. A registered nurse, who monitored the patient's vital signs throughout and after the procedure. Patient received 2 mg intravenous Versed prior to procedure. Fluoroscopic time 0.4 minutes. Estimated blood loss: Less than 4 mL. FINDINGS: Sonographic evaluation of the right neck revealed a patent internal jugular vein. Final images show the catheter tip in the right atrium. COMPLICATIONS: None. IMPRESSION: Successful placement of tunneled dialysis catheter , distal tip positioned in right atrium. The catheter is ready for immediate use.
--- NOTE | 2024-08-28 15:35 | NUR ---
Nutrition consult per protein supplements Reviewed labs, notes, and medications. Pt with no hx of HD, s/p perma-cath today, NPO since 08/27/24, diuretics, b-complex, vit. C, K 3.4(L), elevated BUN 54, elevated Cr 3.5, elevated AST 39, A1C WNL, lipid panel WNL per chart review. 50%PO intake prior to NPO status, wt via bed scale, no edema, 105 ml 08/27/24, mild muscle loss per nursing. Pt with non-severe PCM, Supplement thiamin 100 mg/day for 5-7 days + MVI QD for at least 10 days. Mild muscle loss may be due to sarcopenia. Recommendations -Provide HH diet + nepro TID w/ trays when diet advanced -Fluid restriction per MD -Monitor PO intake -Encourage PO intake as able -Monitor BM -If no BM >3 days consider stool softener -Monitor electrolytes -Replenish electrolytes per protocol -Monitor wts -Reweigh as able -Order Vit D, vit b-12 labs to rule out deficiencies -Provide NEPHROVITE QD when medically feasible -Texture per COMMUNITY SERVICE TECHNICIAN recs -Recommend Pt to follow up with PCP -Monitor goals of care RD to follow + available for consult per protocol Addendum: 08/28/24 at [address] Amended: Links added.
[2024-08-28] MEDS: 0.9%NACL 1000ML 1,000 ML IV ONE (16:02)
[2024-08-28] MEDS: PoTASSium chloRIDE 10MEQ SR 10 MEQ/TAB TAB.SR.24H PO PRN (18:51)
--- NOTE | 2024-08-28 18:59 | NUR ---
HYDRALAZINE HYDRALAZINE AT 1300 HELD DUE TO PATIENT PENDING HD.
--- NOTE | 2024-08-28 21:23 | PN ---
SUBJECTIVE: The patient is comfortable, afebrile, continues with oxygen 2 L nasal cannula. OBJECTIVE: GENERAL: He is currently awake, alert, and oriented to person, time, and place, not in distress. VITAL SIGNS: Blood pressure 132/81, pulse 77, respiratory rate 20. HEENT: Normocephalic, traumatic. LUNGS: Decreased breath sounds in both bases. HEART: S1, S2 are distant. ABDOMEN: Soft and nontender. Peritoneal dialysis catheter in place. EXTREMITIES: No clubbing or cyanosis. ASSESSMENT AND PLAN: * Respiratory failure. Continue with oxygen. * End-stage renal disease. The patient is scheduled to have PermCath placement today as well as having hemodialysis x 3. He will continue with hemodialysis until he can get peritoneal dialysis started. * Coronary artery disease, stable. * Pulmonary congestion. Continue current therapy. * Aortic valve replacement with regurgitation. Continue recommendation by Cardio. * Coronary artery disease, stable. * Anemia, chronic, stable. Follow up in a.m. with results of this. TID: [id number] RECEIPT: [id number]
--- NOTE | 2024-08-28 22:43 | PN ---
NEPHROLOGY NOTE SUBJECTIVE: The patient has been evaluated and seen for dialysis and seen several times. No fevers, chills, or rigors. The patient has abdominal pain and CHF exacerbation, shortness of breath. The patient has a PD catheter in place. No other associated findings. No other aggravating or relieving factors. PHYSICAL EXAMINATION: GENERAL: Pale, no other distress or deformities, lying in bed. VITAL SIGNS: Blood pressure is 180/74, pulse 80, respiratory rate is 19. HEENT: Head is atraumatic, normocephalic. Pupils are round and reactive. NECK: Supple. No masses or bruits. Thyroid is palpable. LABORATORY DATA: Labs have been reviewed with a creatinine ____. GFR is low. PROBLEMS: Renal failure, anemia, fluid overload. PLAN: Plan is to continue dialysis support. Decrease fluid intake. Outpatient hemodialysis to be arranged. PD catheter has been placed for initiation of ____ in future. TID: [id number] RECEIPT: [id number]
[2024-08-29] VITALS (18 sets, daily range): BP systolic 131–168; BP diastolic 38–54; PULSE 64–88; RESP 16–24; TEMP 97.8–99; O2SAT 93–98
[2024-08-29 05:20] LABS: HEMATOCRIT 25.5 % (42-54); MEAN CORPUSCULAR HEMOGLOBIN 31.3 pg (27.0-33.0); MEAN CORPUSCULAR HGB CONC 31.4 g/dL (32.0-36.0); MEAN CORPUSCULAR VOLUME 99.6 fL (79-99); RED BLOOD CELL COUNT(AUTO) 2.56 MIL/uL (4.50-6.20); RED CELL DISTRIBUTION WIDTH 14.9 % (11.0-15.5); WHITE BLOOD COUNT (AUTO) 11.9 K/uL (4.8-10.8)
[2024-08-29 06:01] LABS: ALBUMIN 2.1 g/dL (3.5-5.0); BILIRUBIN,TOTAL 0.4 mg/dL (0.2-1.0); CREATININE 2.7 mg/dL (0.5-1.3); PHOSPHORUS 2.8 mg/dL (2.5-4.9); TOTAL PROTEIN, SERUM 6.1 g/dL (6.0-8.3)
--- NOTE | 2024-08-29 07:22 | PN ---
PROBLEM LIST: * Wrjky-te-ursejxg diastolic congestive heart failure and volume overload. * Chronic kidney disease, currently at end stage, dialysis initiated on this admission with central venous catheter, as well as placement of a peritoneal dialysis catheter to be utilized for future dialysis. * Coronary artery disease with remote coronary artery bypass graft surgery x 3, ULRICH to the LAD, saphenous vein graft to the OM, and saphenous vein graft to the PDA with concomitant bioprosthetic aortic valve replacement by Dr. Francisco Champagne in 07/2015. * Cardiac catheterization in 09/2023 documenting severe [place] three-vessel coronary artery disease with no significant bioprosthetic stenosis, with patent ULRICH to the LAD, patent saphenous vein graft to the PDA and a diseased saphenous vein graft to the OM, managed medically. * Negative Lexiscan Cardiolite for ischemic changes in 07/2024. * Hyperlipoproteinemia. 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 * Hypothyroidism, on supplement. * History of nonobstructive left renal artery stenosis by renal duplex in 06/2024. * Preserved LV systolic function with moderate aortic regurgitation by 2D echocardiography in 06/2024 with a pressure half time of 277 msec and a mean gradient of 23 mmHg. * Chronic anemia, likely multifactorial. * Frail octogenarian. This patient has been hospitalized predominantly because of volume overload. He has a recent hospitalization for similar presentation. The patient has had a dialysis peritoneal catheter placed to be utilized at the future time. Central dialysis catheter was placed yesterday and the patient has already had one session of hemodialysis and he has tolerated that well. He has not had any active complaints at this point. He states that he feels well. He is lying flat and he is in no apparent distress. His vital signs are currently stable. The patient's telemetry has revealed no significant ectopy or pauses. Over the last 24 hours, the patient has had stable vital signs. His heart rate is in the 70s. Blood pressure is in the 130-140 systolic range. He is saturating at 96% on 1 L of nasal cannula. The patient's temperature this morning was 99. Laboratory studies this morning revealed a white count of 11.9, H and H of 8.0 and 25.5 respectively with a platelet count of 278,000. Chemistries revealed a sodium of 138, a potassium of 4.0, chloride 101, CO2 is 32, BUN is 30, creatinine is 2.7 with a GFR of 23. The patient has a total calcium of 8.4. The phosphorus is 2.8. Liver enzymes are normal, but the alkaline phosphatase is borderline elevated at 140. The patient's albumin is low at 2.1, consistent with protein malnutrition. Vitamin B12 is 605. The patient is currently maintained on hydralazine, lactulose, Nephro-Mandeep, vitamin C, ferrous gluconate, atorvastatin, baby aspirin, furosemide, memantine, amlodipine, metoprolol, isosorbide, subcutaneous heparin, levothyroxine, and p.r.n. medications. At this point, the patient appears to be compensated from the cardiac standpoint. We will continue the current management. He is scheduled to have one more dialysis session today. He has tolerated his prior session well. TID: [id number] RECEIPT: [id number]
--- NOTE | 2024-08-29 12:21 | PN ---
NEPHROLOGY NOTE SUBJECTIVE: The patient has been evaluated and seen for dialysis and seen several times. The patient is critically ill. No other associated findings. No other aggravating or relieving factors. The patient's condition is critical guarded. The patient has hemodialysis being initiated. Epogen as needed will be given. Nonsteroidal drugs to be avoided. Dose of medicine to be adjusted. We will follow up closely. The patient was seen for dialysis and seen several times. TID: [id number] RECEIPT: [id number]
--- NOTE | 2024-08-29 14:18 | NUR ---
peritoneal accesses dressing changed, used aseptic technique, no S/S of infection, dressing clean and intact, non soiled. new dressing applied and secured. Addendum: 08/29/24 at 1428 by BAKARI RIDER Amended: Links added.
--- NOTE | 2024-08-29 20:37 | PN ---
SUBJECTIVE: The patient had PermCath placed, had first session of hemodialysis done. The patient is significantly improved. He is without oxygen, having no fever, chills, seizures, or loss of consciousness. No chest pain, palpitations. No nausea or vomiting. OBJECTIVE: GENERAL: Currently, awake, alert, oriented in person and place, not in distress. VITAL SIGNS: Blood pressure 150/40, pulse 68, respirations 16. HEENT: Normocephalic, atraumatic. LUNGS: Clear to auscultation. HEART: S1, S2 are distant. ABDOMEN: Soft and nontender. LABORATORY DATA: WBC count 11.9, hemoglobin 8, platelets 278. Sodium 138, potassium 4, BUN 30, creatinine 2.7, glucose 108, albumin 2.1. ASSESSMENT AND PLAN: * Respiratory failure, improving. The patient is without oxygen at this time. Continue current approach. * Pulmonary congestion, improving. Continue current treatment. * End-stage renal disease. The patient is started on hemodialysis in anticipation of switching to peritoneal dialysis. Continue recommendations by Nephrology. * Coronary artery disease, stable. * Aortic valve replacement with regurgitation. Continue recommendation by Cardio. * Anemia, chronic, stable. Continue to monitor. * Hypertension, controlled. Follow up in a.m. with labs. TID: [id number] RECEIPT: [id number]
--- NOTE | 2024-08-29 21:50 | PN ---
NEPHROLOGY NOTE SUBJECTIVE: The patient has been evaluated and seen for dialysis and seen multiple times. The patient has multiple other comorbidities. No other associated finding. No other aggravating or relieving factor. No other associated symptoms. The patient is critically ill. PHYSICAL EXAMINATION: GENERAL: Pale, no other distress or deformities. Lying in bed. VITAL SIGNS: Blood pressure is 144/39, pulse 69, respiratory rate is 18. HEENT: Head is atraumatic, normocephalic. Pupils are round, reactive. Sclerae are anicteric. Conjunctivae are not pale. Oral mucosa is not dry. NECK: Without masses or bruits. Thyroid is palpable. Neck has no bruits. CHEST: Shows equal thoracic percussion note being resonant in all areas. CARDIAC: Regular rhythm. No rub. No S3, S4. No parasternal heave. Apical beat is not localized. ABDOMEN: With no guarding or tenderness. Bowel sounds are normoactive. No free fluid. EXTREMITIES: With no edema and no cyanosis, clubbing. LABORATORY DATA: Labs have been reviewed and old records reviewed in detail. IMAGING STUDIES: Personally reviewed. PROBLEMS: * Renal failure. * Anemia. * End-stage renal disease. * CHF exacerbation. PLAN: Continue dialysis support. Continue monitoring of renal function and electrolytes. Intake, output, weight will be monitored. Nonsteroidal drugs to be avoided. Dose of medicine to be adjusted. Outpatient dialysis to be arranged. The patient's condition remains guarded. Seen several times today. We will be following up closely. The patient was evaluated and seen for dialysis and seen several times. I have discussed with other team members. TID: [id number] RECEIPT: [id number]
--- NOTE | 2024-08-29 21:53 | PN ---
NEPHROLOGY NOTE SUBJECTIVE: The patient has been evaluated and seen for dialysis and seen several times. The patient has multiple comorbidities. No other associated finding. No other aggravating or relieving factors. The patient has anemia, renal failure, multiple other comorbidities. The patient is weak. The patient has CHF exacerbation, fluid overload, PD catheter placement, underlying diabetic nephropathy by kidney biopsy, and multiple other comorbidities. I have discussed with other team members and Quality Improvement Specialist, outpatient dialysis arranged. The patient could be arranged for outpatient dialysis and make sure he has transportation and means to get to dialysis and can dialyze on an outpatient basis. PD catheter will need flushing also. TID: [id number] RECEIPT: [id number]
== END 2024-08-29 17:45 | disposition home or self-care (01) | DRG 291 ==
LOC: EDH 00:24 → EDHIP 02:47 → 3AH 04:30
PROVIDERS: ADMIT Internal Medicine; ATTEND Internal Medicine
PROC: 0JH63XZ Insertion of Tunneled Vascular Access Device into Chest Subcutaneous Tissue and Fascia, Percutaneous Approach (ICD-10-PCS; 2024-08-24)
PROC: 02H633Z Insertion of Infusion Device into Right Atrium, Percutaneous Approach (ICD-10-PCS; 2024-08-24)
PROC: 5A1D70Z Performance of Urinary Filtration, Intermittent, Less than 6 Hours Per Day (ICD-10-PCS; principal; 2024-08-28)
PROC: 5A1D70Z Performance of Urinary Filtration, Intermittent, Less than 6 Hours Per Day (ICD-10-PCS; 2024-08-29)
DX: I13.2 Hypertensive heart and chronic kidney disease with heart failure and with stage 5 chronic kidney disease, or end stage renal disease (principal); I50.33 Acute on chronic diastolic (congestive) heart failure; N18.6 End stage renal disease; J96.90 Respiratory failure, unspecified, unspecified whether with hypoxia or hypercapnia; N17.9 Acute kidney failure, unspecified; E46 Unspecified protein-calorie malnutrition; Z20.822 Contact with and (suspected) exposure to COVID-19; E11.22 Type 2 diabetes mellitus with diabetic chronic kidney disease; E03.9 Hypothyroidism, unspecified; I25.10 Atherosclerotic heart disease of native coronary artery without angina pectoris; I35.2 Nonrheumatic aortic (valve) stenosis with insufficiency; N26.9 Renal sclerosis, unspecified; T44.7X5A Adverse effect of beta-adrenoreceptor antagonists, initial encounter; I42.9 Cardiomyopathy, unspecified; D63.1 Anemia in chronic kidney disease; E78.00 Pure hypercholesterolemia, unspecified; R54 Age-related physical debility; F19.90 Other psychoactive substance use, unspecified, uncomplicated; Z95.1 Presence of aortocoronary bypass graft; Z95.3 Presence of xenogenic heart valve; Z99.2 Dependence on renal dialysis; Z79.82 Long term (current) use of aspirin; Z79.899 Other long term (current) drug therapy; Z68.23 Body mass index [BMI] 23.0-23.9, adult
CPT/HCPCS: 36415; 36558; 71045; 77001; 80048; 80053; 80061; 82040; 82306; 82565; 82607; 82728; 82948; 83036; 83540; 83550; 83735; 83880; 84100; 84443; 84484; 84520; 84550; 85025; 85027; 85610; 85730; 86701; 86704; 86706; 86803; 87340; 87390; 87426; 87804; 90935; 93005; 94760; 96374; 96376; 99156; 99285; C1750; C1769; C1894; G0378; J0360; J0690; J1644; J1938; J2003; J2250; J2704; J3010; J3475; J3490; J7030; A4216; A4222; A4223; A4600; A4649; A4930

== ENCOUNTER 2025-01-05 08:02 | Day surgery (SDC) | payer OTHER ==
[2025-01-04 09:17] LABS: IMMATURE GRANULOCYTE ABSOLUTE 0.01 K/uL (0-1); NUCLEATED RED BLOOD CELLS 0.0 % (0.0-0.19); PLATELET COUNT (AUTO) 152 K/uL (130-400); RED BLOOD CELL COUNT(AUTO) 4.25 MIL/uL (4.50-6.20); RED CELL DISTRIBUTION WIDTH 17.7 % (11.0-15.5); WHITE BLOOD COUNT (AUTO) 7.9 K/uL (4.8-10.8)
[2025-01-04 09:27] LABS: CREATININE 3.5 mg/dL (0.5-1.3); GLOMERULAR FILTR. RATE CALC 17.0 mL/min (>90); GLUCOSE,RANDOM 89.0 mg/dL (70-105); SODIUM SERUM 137.0 mmol/L (136-145); UREA NITROGEN, BLOOD 20.0 mg/dL (7-18)
[2025-01-04 09:29] LABS: INR 1.03 (0.85-1.15)
[2025-01-04 09:51] VITALS: BP 145/35; PULSE 63; RESP 15; TEMP 97.5
--- NOTE | 2025-01-04 12:54 | EKG ---
[facility] Test Date: 2025-01-04 Test Time: 09:02:12 Pat Name: JEROMY MCLAUGHLIN Department: [facility] Room: Gender: M Word Processing Operator: [id number] : 1940 Requested By: SAMANTHA RM Order Number: [id number] Reading MD: Kamari Nunez Measurements Intervals [place] Rate: 65 P: 64 MI: 161 QRS: 24 QRSD: 86 T: 231 QT: 441 QTc: 460 Interpretive Statements Sinus rhythm Probable left atrial enlargement Compared to ECG 08/21/2024 00:49:49 Early repolarization no longer present Electronically Signed On 01-04-2025 16:32:16 CDT by Kamari Nunez Please click the below link to view image of tracing.
--- NOTE | 2025-01-04 15:48 | NUR ---
REPORT REPORTED CT SCAN PENDING FOR 4PM TODAY TO RT TEMPORAL AREA D/T RT SIDED EAR AND FACE PAIN. INFORMED PT ALSO C/O DIZZINESS. OK TO PROCEED. RECEIVED ORDERS FOR TYPE AND SCREEN.
[~2025-01-05] VITALS: Ht 162.6 cm; Wt 55.8 kg
[2025-01-05] VITALS (17 sets, daily range): BP systolic 103–148; BP diastolic 33–84; PULSE 70–78; RESP 16–20; TEMP 97.4–98.1
[~2025-01-05 08:02] MED LIST changes: +ACET-2247 PO; -AMLO-258 PO; +AMLO-915 PO; -AMOX1TAB16 PO; +ASPI-1005 PO; -ASPI-1197 PO; +CARB-283 OP; -CHOL100046 PO; +CHOL1CRY2 MC; +CLOP-31 PO; +DOCU100C33 PO; +FOLI0.8T22 PO; -FURO40TA5 PO; -IRON-15 PO; -ISOS60TA77 PO; -LEVO25CA5 PO; +MECL-226 PO; -MEMA10TA21 PO; -METO-408 PO; +METO25TA6 PO; +MIDO10TA3 PO; +ONDA22I PO; +PANT40TA54 PO; +SEVE0.8P PO; +TRAM100C3 PO
[2025-01-05] MEDS ORDERED: HEParin-NS 1,000 UNIT/500 ML 500 ML IV ONE (08:47)
[2025-01-05] MEDS ORDERED: LIDOCAINE PF 100MG/5ML (2%) SYRINGE 5ML ONE (08:54)
[2025-01-05] MEDS ORDERED: MIDAZOLAM HCL 1 MG/ML 2ML VIAL ONE (08:55)
[2025-01-05] MEDS ORDERED: SUCCINYLCHOLINE CHLORIDE 20 MG/ML 10 ML VIAL ONE (08:55)
[2025-01-05] MEDS ORDERED: SUGAMMADEX SODIUM 200 MG/2 ML VIAL IV ONE (09:10)
[2025-01-05 09:14] LABS: CREATININE 2.0 mg/dL (0.5-1.3); GLOMERULAR FILTR. RATE CALC 33.0 mL/min (>90); GLUCOSE,RANDOM 89.0 mg/dL (70-105); SODIUM SERUM 139.0 mmol/L (136-145); UREA NITROGEN, BLOOD 10.0 mg/dL (7-18)
[2025-01-05] MEDS: 0.9%NACL 1000ML 1,000 ML IV ONE (10:13)
--- NOTE | 2025-01-05 12:28 | NUR ---
ASSESSMENT: DERMABOND TO RIGHT UPPER EXTREMITY DRY/INTACT WITH NO ACTIVE BLEEDING NOTED. NO REDNESS/SWELLING NOTED TO SURROUNDING AREA.
--- NOTE | 2025-01-05 13:07 | NUR ---
ASSESSMENT: DERMABOND TO RIGHT UPPER EXTREMITY DRY/INTACT WITH NO ACTIVE BLEEDING PRESENT. NO REDNESS/SWELLING NOTED TO SURROUNDING AREA.
--- NOTE | 2025-01-05 13:19 | OP ---
Operative Note: DATE OF PROCEDURE: 01/05/25 SURGEON: SAMANTHA RM MD HOME COMFORT ADVISOR: [] PREOPERATIVE DIAGNOSIS: End-stage renal disease POSTOPERATIVE DIAGNOSIS: End-stage renal disease PROCEDURE: Right upper extremity brachiocephalic fistula creation INDICATIONS: Patient needs access for dialysis ESTIMATED BLOOD LOSS: 5cc Devices left in place: None Anesthesia: General endotracheal DESCRIPTION OF PROCEDURE: Patient is brought to the operating room placed on the operating table in a supine position. Once general endotracheal anesthesia is achieved patient's right upper extremity up to the axilla is prepped and draped in sterile fashion. Using ultrasound we identified the cephalic vein and confirmed that it was adequate for fistula creation. We then proceeded to create a transverse incision at the antecubital fossa and dissected down through the skin and subcutaneous tissue to expose the cephalic vein vein. We exposed that for a length of about 6 cm. I then proceeded to release the cephalic vein in the antecubital fossa which is the upper arm and released it from attachments and any branches. Suture ligated the branches and transposed it to the medial portion of the arm to be able to create a anastomosis. We then proceeded to expose the brachial artery for a length of about 4 cm and obtained proximal and distal control. We then asked anesthesia to give 5000 units of heparin. I then proceeded to clamp the cephalic vein proximally and distally divided it at the level of the elbow. And suture ligated the distal and end. We then proceeded to to dilate the vein with heparinized saline and ensured that there were no leaks from all the branches were clipped or sutured. I then clamped the brachial artery proximally and distally. I then proceeded to create a end-to-side anastomosis between the brachial artery and the cephalic vein at the antecubital fossa with 6-0 Prolene. I then opened up the clamp to the vein first and that there to be backflow. And then proceeded to open the proximal clamp on the artery to flush out the anastomosis and then open the distal clamp. I then proceeded to suture the anastomosis. We ensured with a Doppler that we had a strong palmar arch pulse at the right hand and ulnar and radial pulses as well. We had a good thrill throughout the fistula. We then close the skin incision in 2 layers with subcutaneous tissue being closed with 3-0 Vicryl in running fashion and the skin was closed with 4-0 Monocryl in running fashion. Dermabond was applied over top and skin dressings were applied over top patient tolerated the procedure well all counts were correct x2 at the end of the procedure. SAMANTHA RM MD Jan 05, 2025 13:18
== END 2025-01-05 13:07 | disposition home or self-care (01) ==
LOC: DAH 08:02
PROVIDERS: ATTEND Student in an Organized Health Care Education/Training Program
DX: I13.2 Hypertensive heart and chronic kidney disease with heart failure and with stage 5 chronic kidney disease, or end stage renal disease (principal); N18.6 End stage renal disease; I50.9 Heart failure, unspecified; K21.9 Gastro-esophageal reflux disease without esophagitis; Z86.73 Personal history of transient ischemic attack (TIA), and cerebral infarction without residual deficits; Z79.01 Long term (current) use of anticoagulants; Z79.899 Other long term (current) drug therapy; Z90.49 Acquired absence of other specified parts of digestive tract
CPT/HCPCS: 80048 ×2; 85025; 85610; 85730; 36415 ×2; 93005; 36821; 86850; 86900; 86901; 82948 ×2; A6260; A4663; J3010; J1100; J0330; J7030; J0665 ×2; J3490 ×3; J2003; J1644 ×2; J2250; J2704; J2405; J2371; J0690; A4649 ×2; C1713 ×2; A4215; A4213; A4222; A4221; A4216; A4223 ×2; A4600